=== PATIENT | male | born 1960 | race Caucasian/White ===

== ENCOUNTER 2020-03-13 07:28 | Outpatient (REF) | payer BC, SELFPAY ==
[2020-03-13 11:53] LABS: Anion Gap 11 (12-20); Blood Urea Nitrogen 22 mg/dL (9-16); Calcium 8.5 mg/dL (8.4-10.2); Carbon Dioxide 26 mmol/L (22-29); Chloride 105 mmol/L (96-108); Estimated Glomerular Filt Rate > 60; Glucose Random 84 mg/dL (60-115); Potassium 4.3 mmol/l (3.3-5.1); Sodium 138 mmol/L (135-145)
== END 2020-03-13 07:29 | disposition home or self-care (01) ==
LOC: HO.HMGCLDS 07:28
PROVIDERS: PCP Internal Medicine; Visit Provider Internal Medicine
DX: E27.3 Drug-induced adrenocortical insufficiency (principal)
CPT/HCPCS: 36415; 80048

== ENCOUNTER → 2020-03-19 12:31 | Outpatient (BNVA) | payer BC, SELFPAY | PROVIDERS: PCP Internal Medicine; Referring Provider Internal Medicine; Visit Provider Internal Medicine | DX: Z76.89 Persons encountering health services in other specified circumstances (principal) ==

== ENCOUNTER 2020-04-16 12:00 | Outpatient (REF) | payer BC, SELFPAY ==
--- NOTE | 2020-04-16 12:05 | XR_ITS ---
EXAMINATION: XR KNEE, RIGHT CLINICAL INFORMATION: Pain and swelling COMPARISON: Previous x-ray February 2018 TECHNIQUE: Four views of the right knee. FINDINGS: Bone alignment is normal. No fracture or dislocation is seen. There is increasing arthritis at the medial femoral tibial joint with the increasing joint space narrowing and small osteophyte. There is mild arthritis patellofemoral joint with small osteophytes. There is a moderate joint effusion. There is new high attenuation seen posterior to the tibial plateau and fibular head on the lateral view questionable for intra-articular loose body or complex joint effusion. There is evidence of atherosclerotic disease. XR/XR knee RT 3V IMPRESSION: Degenerative changes at the medial femoral tibial and patellofemoral joints. Moderate joint effusion. High attenuation seen posterior to the tibial plateau on the lateral view questionable for intra-articular loose body or complex effusion. Mild atherosclerotic disease.
== END 2020-04-16 12:01 | disposition home or self-care (01) ==
LOC: HO.XRAY 12:00
PROVIDERS: Visit Provider Internal Medicine
DX: M25.561 Pain in right knee (principal); M25.461 Effusion, right knee
CPT/HCPCS: 73562

== ENCOUNTER 2020-04-28 07:22 | Outpatient (REF) | payer BC, SELFPAY ==
[2020-04-28 11:49] LABS: Anion Gap 13 (12-20); Blood Urea Nitrogen 16 mg/dL (9-16); Calcium 8.9 mg/dL (8.4-10.2); Carbon Dioxide 27 mmol/L (22-29); Chloride 104 mmol/L (96-108); Estimated Glomerular Filt Rate > 60; Glucose Random 90 mg/dL (60-115); Potassium 4.4 mmol/l (3.3-5.1); Sodium 140 mmol/L (135-145)
[2020-04-28 12:06] LABS: C Reactive Protein 0.78 mg/dL (< or = 0.50)
[2020-04-28 14:32] LABS: Erythrocyte Sedimentation Rate 26 MM/HR (0-15)
== END 2020-04-28 07:23 | disposition home or self-care (01) ==
LOC: HO.HMGCLDS 07:22
PROVIDERS: Internal Medicine; PCP Internal Medicine; Visit Provider Student in an Organized Health Care Education/Training Program
DX: E27.40 Unspecified adrenocortical insufficiency (principal); M31.6 Other giant cell arteritis; M35.3 Polymyalgia rheumatica; Z79.52 Long term (current) use of systemic steroids
CPT/HCPCS: 36415; 80048; 85652; 86140

== ENCOUNTER → 2020-05-02 07:38 | Outpatient (BNVA) | payer BC, SELFPAY | PROVIDERS: PCP Internal Medicine; Referring Provider Internal Medicine; Visit Provider Student in an Organized Health Care Education/Training Program | DX: Z76.89 Persons encountering health services in other specified circumstances (principal) ==

== ENCOUNTER 2020-05-05 18:34 | Outpatient (REF) | payer BC, SELFPAY ==
--- NOTE | 2020-05-05 18:36 | MR_ITS ---
EXAMINATION: MR KNEE WITHOUT CONTRAST, RIGHT CLINICAL INFORMATION: Sharp pain at the medial patella with symptoms x1 month. Radiographs dated 04/16/2020. COMPARISON: None TECHNIQUE: MRI of the knee without contrast was performed using routine sequences on a high-field scanner. FINDINGS: MENISCI: Medial Meniscus: The posterior horn and body are blunted at the free edge margins which could be due in part to a prior partial meniscectomy. There is a degenerative longitudinal undersurface tear at the junction of the posterior horn and body which is likely new since prior surgery. An undersurface meniscal flap fragment is displaced into the meniscotibial recess posteromedially, measuring 1.4 cm AP. A small radial tear is present at the posterior horn along the free edge. Lateral Meniscus: A radially oriented degenerative tear is present at the posterior horn near the root insertion, involving at least one-third of the overall tendon cross-section. A small longitudinal tear is present at the anterior root insertion, likely extending to the superior meniscal surface. Free edge fraying is present at the lateral meniscal body. LIGAMENTS: Cruciate: Intact Collateral: Intact EXTENSOR MECHANISM: Enthesopathic spurring is present at the quadriceps tendon insertion of the patella. Quadriceps and patellar tendons are normal. ARTICULAR CARTILAGE/BONE: Patellofemoral Compartment: Moderate to high-grade cartilage loss at the lateral patellar facet is most pronounced at the distal half. More [id number]-dg-[id number] chondral thinning is present at the median ridge and medial facet. Small to moderate-sized marginal osteophytes. A small chondral defect in the lateral third of the lateral trochlear facet measures 1.5 x 1.8 cm in area. Medial Compartment: Moderate to high-grade articular cartilage loss is present at the medial femoral condyle weightbearing surface with articular cortical irregularity and subchondral edema. Focal high-grade cartilage loss is also present at the anteromedial quarter of the medial tibial plateau with underlying subchondral marrow edema. Small to moderate-sized marginal osteophytes are noted. Lateral Compartment: Moderate to high-grade articular cartilage loss is present at the medial half of the lateral tibial plateau. There is more mild lateral chondral thinning. Additional mild partial-thickness chondral thinning is present at the lateral femoral condyle. Small to moderate-sized marginal osteophytes. JOINT FLUID AND BURSAE: Moderate-sized joint effusion. Multiple loose bodies are present throughout the joint. There is a 1.5 cm osseous loose body posteriorly within a synovial cyst arising just proximal to the popliteus tendon sheath posteriorly. Additional small foci of osteochondral debris are present within the tendon sheath itself. Posteromedially in the gastrocnemius recess, there are multiple small osseous and chondral loose bodies measuring up to 8 mm in diameter. In the anterior recess of the lateral compartment near the anterior insertion of the lateral meniscus, there is an ill-defined 1.7 x 0.7 x 1.7 cm region of ill-defined low signal intensity material which may correspond to chondral debris or synovitis. MR/MR knee RT wo con IMPRESSION: 1. Complex longitudinal undersurface tear at the posterior horn and body of the medial meniscus with partial extrusion of an undersurface flap. Query history of prior partial medial meniscectomy. 2. Degenerative undersurface partial tear of the posterior horn of the lateral meniscus. 3. Moderate medial and patellofemoral compartment osteoarthritis with areas of high-grade cartilage loss at the medial femoral condyle and lateral patellar facet. 4. Ikmx-cs-swtffdwu lateral compartment osteoarthritis. 5. Moderate-sized joint effusion with multiple loose bodies and clusters of osteochondral debris.
== END 2020-05-05 18:35 | disposition home or self-care (01) ==
LOC: HO.MRI 18:34
PROVIDERS: Visit Provider Orthopaedic Surgery
DX: S83.241A Other tear of medial meniscus, current injury, right knee, initial encounter (principal)
CPT/HCPCS: 73721

== ENCOUNTER → 2020-05-14 14:01 | Outpatient (BNVA) | payer BC, SELFPAY | PROVIDERS: Visit Provider Orthopaedic Surgery | DX: Z76.89 Persons encountering health services in other specified circumstances (principal) ==

== ENCOUNTER → 2020-05-28 12:11 | Outpatient (BNVA) | payer BC, SELFPAY | PROVIDERS: PCP Internal Medicine; Referring Provider Internal Medicine; Visit Provider Internal Medicine | DX: Z76.89 Persons encountering health services in other specified circumstances (principal) ==

== ENCOUNTER 2020-06-17 08:07 | Outpatient (REF) | payer BC, SELFPAY ==
[2020-06-17 11:41] LABS: C Reactive Protein 1.03 mg/dL (< or = 0.50)
[2020-06-17 12:31] LABS: Erythrocyte Sedimentation Rate 20 MM/HR (0-15)
[2020-06-17 13:49] LABS: Anion Gap 17 (12-20); Blood Urea Nitrogen 15 mg/dL (9-16); Calcium 8.9 mg/dL (8.4-10.2); Carbon Dioxide 26 mmol/L (22-29); Chloride 104 mmol/L (96-108); Estimated Glomerular Filt Rate > 60; Glucose Random 93 mg/dL (60-115); Potassium 4.6 mmol/l (3.3-5.1); Sodium 142 mmol/L (135-145)
== END 2020-06-17 08:08 | disposition home or self-care (01) ==
LOC: HO.HMGCLDS 08:07
PROVIDERS: Internal Medicine; PCP Internal Medicine; Visit Provider Student in an Organized Health Care Education/Training Program
DX: E27.40 Unspecified adrenocortical insufficiency (principal); M35.3 Polymyalgia rheumatica
CPT/HCPCS: 36415; 80048; 85652; 86140

== ENCOUNTER 2020-06-19 07:57 | Day surgery (SDC) | payer BC, SELFPAY ==
[2020-06-11 15:20] VITALS: BMI 31.5
--- NOTE | 2020-06-17 15:16 | P.CONAN_ITS ---
Documented by User: Margret Mac 06/17/20 15:17 HPI - Anesthesia Eval Consult details Narrative: 59yo M for Knee Arthroscopy *Chronic steroids* PMFSH Past Medical History Medical History Adrenocortical insufficiency Depression GERD (gastroesophageal reflux disease) HLD (hyperlipidemia) Migraine Osteopenia Polymyalgia rheumatica Temporal arteritis Vitamin D deficiency Family History Family History Father T2DM (type 2 diabetes mellitus) CVA (cerebral vascular accident) Surgical History Surgical History History of hand surgery Hx of bilateral cataract extraction Social History Social History Are you a primary director career services to a significant other at home: No Do you presently have visiting nurse or other home services: No Alcohol intake: current Smoking Status: Never smoker Second Hand Smoke Exposure: No Use of substances other than those prescribed or required for medical reasons: No Have you been hit, kicked, punched, or otherwise hurt by someone within the past year? 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 Meds Allergies Allergy/AdvReac Type Severity Reaction Status Date / Time No Known Allergies Allergy Verified 06/19/20 08:27 [No Known Allergies*] diesel exhaust Allergy Mild Migraine Uncoded 06/11/20 15:18 Home Medications Medication Instructions Recorded Confirmed Type omeprazole 20 mg capsule,delayed 20 mg PO DAILY 03/19/20 06/19/20 History release calcium carbonate-vitamin D3 600 1 tab PO DAILY tab 05/28/20 06/19/20 History mg(1,500 mg)-400 unit chewable tablet syringe with needle 3 mL 25 gauge #1 ea 05/28/20 06/19/20 History x 1 cyanocobalamin (vitamin B-12) 1,000 mcg IM Q4W 06/11/20 06/19/20 History ferrous sulfate 325 mg PO DAILY 06/11/20 06/19/20 History Exam Exam Date and Time: June 17, 2020 1516 Height,Weight and Vital Signs: Height 5 ft 10 in Weight 99.79 kg Pertinent Lab Results Pertinent Lab Results: Laboratory Tests 06/17/20 08:15 Sodium 142 Potassium 4.6 Chloride 104 Carbon Dioxide 26 BUN 15 Creatinine 0.85 Assessment and Plan Assessment Anesthesia Assessment: Chart Reviewed Documented by User: Mariely Lynne 06/19/20 09:31 PMFSH Past Medical History Medical History Adrenocortical insufficiency Depression GERD (gastroesophageal reflux disease) HLD (hyperlipidemia) Migraine Osteopenia Polymyalgia rheumatica Temporal arteritis Vitamin D deficiency Family History Family History Father T2DM (type 2 diabetes mellitus) CVA (cerebral vascular accident) Surgical History Surgical History History of hand surgery Hx of bilateral cataract extraction Social History Social History Are you a primary director career services to a significant other at home: No Do you presently have visiting nurse or other home services: No Alcohol intake: current Smoking Status: Never smoker Second Hand Smoke Exposure: No Use of substances other than those prescribed or required for medical reasons: No Have you been hit, kicked, punched, or otherwise hurt by someone within the past year? 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 Meds Allergies Allergy/AdvReac Type Severity Reaction Status Date / Time No Known Allergies Allergy Verified 06/19/20 08:27 [No Known Allergies*] diesel exhaust Allergy Mild Migraine Uncoded 06/11/20 15:18 Home Medications Medication Instructions Recorded Confirmed Type omeprazole 20 mg capsule,delayed 20 mg PO DAILY 03/19/20 06/19/20 History release calcium carbonate-vitamin D3 600 1 tab PO DAILY tab 05/28/20 06/19/20 History mg(1,500 mg)-400 unit chewable tablet syringe with needle 3 mL 25 gauge #1 ea 05/28/20 06/19/20 History x 1 cyanocobalamin (vitamin B-12) 1,000 mcg IM Q4W 06/11/20 06/19/20 History ferrous sulfate 325 mg PO DAILY 06/11/20 06/19/20 History Exam Airway Mallampati Class: II TM Dist: >3cm Neck ROM: Full Assessment and Plan Assessment Anesthesia Assessment: Anesthesia Plan Discussed and Chart Reviewed Final Anesthetic Review NPO: Yes ASA Class: II Final Preanesthetic Review: No Changes in Pt Med Stat, Meds/Allgs Chart Reviewed, Consent Obtained/Reviewed and Anes Risks/Benef Reviewed Patient Risk: Low Procedure Risk: Low Assessment/Block/Sedation in SS: Assess/Block/Sedation-SS Anesthetic Plan Anesthetic Plan: GA Disposition: Standard PACU
--- NOTE | 2020-06-18 14:57 | MHC.SHP ---
Pre-Procedural Eval Section A The patient is an INPATIENT: No Changes since office visit: No Cold of Flu in the past 2 weeks, No New Medical Problems, No Changes in Medication and No Patient answered all questions The History & Physical has been completed within 30 days and I have reviewed it.: Yes Section B Chief Complaint: tear of medial meniscus,right knee Allergies: Allergies Allergy/AdvReac Type Severity Reaction Status Date / Time No Known Allergies Allergy Verified 05/28/20 12:18 [No Known Allergies*] diesel exhaust Allergy Mild Migraine Uncoded 06/11/20 15:18 Plan I have reviewed the history and physical and performed a pertinent physical examination on my patient. No changes have occurred unless specified.
[2020-06-19] VITALS (7 sets, daily range): BP systolic 113–141; BP diastolic 66–81; PULSE 59–74; RESP 16–18; TEMP 36.4–36.8; O2SAT 92–99
[2020-06-19] MEDS: Lactated Ringers 1,000 ML 100 ML IVCONT (08:50)
--- NOTE | 2020-06-19 10:21 | PM.PRCOR ---
Brief Operative Note Date of procedure: 06/19/20 Pre-op diagnosis: medial meniscal tear right knee Post-op diagnosis: same (with OA right knee) Procedure: RIGHT KNEE Anesthesia: GLMA Surgeon: Cierra Souza Estimated blood loss (mL): 0 Condition: stable Disposition: PACU
--- NOTE | 2020-06-19 10:52 | OP_ITS ---
SURGEON: Cierra Souza MD PREOPERATIVE DIAGNOSIS: Medial meniscal tear of right knee. POSTOPERATIVE DIAGNOSIS: 1. Complex tear posterior horn of medial meniscus, right knee. 2. Osteoarthritis, right knee. PROCEDURE PERFORMED: 1. Partial medial meniscectomy, right knee. 2. Debridement, right knee. ESTIMATED BLOOD LOSS: COMPLICATIONS: ANESTHESIA: ASSISTANTS: SPECIMENS: CLINICAL NOTE: This gentleman has an ongoing problem with pain and discomfort involving his knee. He had failed nonoperative management. Investigations confirmed that he had evidence of osteoarthritis, but also a medial meniscal tear. Therefore after explaining the risks, benefits, and alternatives and answering all his questions, it was mutually agreed upon to carry out the following procedure. MOTION: Full range of motion. STABILITY: Cruciate and collateral ligaments intact. DESCRIPTION OF PROCEDURE: PREPARATION: GA, standard technique, tourniquet to 300 mmHg for 11 minutes. SURGICAL TIME-OUT: The patient was identified, procedure confirmed, site confirmed. Medical analogy and history reviewed. No preoperative antibiotics. No DVT prophylaxis. All other items were discussed and agreed upon. INCISION: Superolateral, inferolateral, inferomedial stab incisions. SYNOVIUM: Normal. SYNOVIAL FLUID: Clear. MEDIAL COMPARTMENT: There was a complex tearing of posterior horn of medial meniscus was resected using a combination of handheld cutters and power shaver to stable meniscus. The medial femoral condyle had large area over the weightbearing surface of grade 3 injury, which was debrided of loose articular cartilage. There was an area that was close to grade 4. On the tibial articular surface, the large area of grade 3 wear with peripherally grade 4 area as well. This was debrided loose articular cartilage as well. INTERCONDYLAR NOTCH: ACL visualized, palpated intact. PCL palpated intact. LATERAL COMPARTMENT: The lateral meniscus was intact. The femoral articular surface was intact except for small punctate grade 3 injury in the weightbearing surface. The tibial articular surface had a large area of grade 3 injury with loose articular cartilage, which was debrided. The popliteus tendon intact. ANTERIOR COMPARTMENT: Medial and lateral gutters clear. Suprapatellar pouch clear. The whole midzone of the patella had mainly grade 4 injury with a peripheral portion having grade 3. There was a large amount of synovial tissue. This was debrided as was the patella. The femoral sulcus had a small area of crease grade 2 to 3 injury but the remainder of it was grade 2 softening. CLOSURE: 30 mL of a combination of half and half 0.75% Marcaine with epinephrine and normal saline was injected in the knee. Steri-Strips and sterile dressing then applied. RECOMMENDATIONS: 1. Restore motion and strength. 2. Resume activity as tolerated. 3. Discharge today with prescription for Tylenol No. 3, 20 tablets. 4. Follow up in the office in 10 days' time. MD HOANG Cabrera/KEIRY / [id number]
[2020-06-19] MEDS: Acetaminophen 325 MG TABLET 650 MG PO (10:54)
== END 2020-06-19 11:33 | disposition home or self-care (01) ==
PROVIDERS: PCP Internal Medicine; Visit Provider Orthopaedic Surgery
PROC: (CPT 29870; principal; 2020-06-19 09:40)
DX: S83.231A Complex tear of medial meniscus, current injury, right knee, initial encounter (principal); M17.11 Unilateral primary osteoarthritis, right knee; X58.XXXA Exposure to other specified factors, initial encounter; Y93.9 Activity, unspecified; Y92.9 Unspecified place or not applicable; Y99.8 Other external cause status; M85.80 Other specified disorders of bone density and structure, unspecified site; M35.3 Polymyalgia rheumatica; M31.6 Other giant cell arteritis; E27.40 Unspecified adrenocortical insufficiency; E55.9 Vitamin D deficiency, unspecified; Z79.52 Long term (current) use of systemic steroids; Z79.899 Other long term (current) drug therapy
CPT/HCPCS: 29881; J0171; J1100; J1885; J2250; J2405; J3010

== ENCOUNTER → 2020-06-20 08:51 | Outpatient (BNVA) | payer BC, SELFPAY | PROVIDERS: PCP Internal Medicine; Visit Provider Student in an Organized Health Care Education/Training Program | DX: Z13.89 Encounter for screening for other disorder (principal) ==

== ENCOUNTER → 2020-07-02 09:54 | Outpatient (BNVA) | payer BC, SELFPAY | PROVIDERS: Visit Provider Physician Assistant ==

== ENCOUNTER 2020-07-17 13:24 | Outpatient (REF) | payer BC, SELFPAY | END 2020-07-17 13:25 | disposition home or self-care (01) | LOC: HO.HMGCLDS 13:24 | PROVIDERS: PCP Internal Medicine; Visit Provider Internal Medicine | DX: Z13.89 Encounter for screening for other disorder (principal) ==

== ENCOUNTER → 2020-07-23 14:48 | Outpatient (BNVA) | payer BC, SELFPAY | PROVIDERS: PCP Internal Medicine; Visit Provider Internal Medicine ==

== ENCOUNTER 2020-07-25 09:48 | Outpatient (REF) | payer BC, SELFPAY ==
[2020-07-25 11:44] LABS: C Reactive Protein 0.67 mg/dL (< or = 0.50)
[2020-07-25 12:25] LABS: Erythrocyte Sedimentation Rate 16 MM/HR (0-15)
== END 2020-07-25 09:49 | disposition home or self-care (01) ==
LOC: HO.HMGCLDS 09:48
PROVIDERS: PCP Internal Medicine; Visit Provider Student in an Organized Health Care Education/Training Program
DX: M35.3 Polymyalgia rheumatica (principal)
CPT/HCPCS: 36415; 85652; 86140

== ENCOUNTER → 2020-07-30 15:57 | Outpatient (BNVA) | payer BC, SELFPAY | PROVIDERS: PCP Internal Medicine; Visit Provider Student in an Organized Health Care Education/Training Program ==

== ENCOUNTER → 2020-10-07 07:58 | Outpatient (BNVA) | payer BC, SELFPAY | PROVIDERS: PCP Internal Medicine; Visit Provider Orthopaedic Surgery ==

== ENCOUNTER 2020-10-31 08:38 | Outpatient (REF) | payer BC, SELFPAY ==
[2020-10-31 09:03] LABS: MANUAL DIFF FLAG NO
[2020-10-31 09:06] LABS: Basophils Absolute Auto 0.1 X10*3/uL (0.0-0.2); Eosinophils Absolute Auto 0.3 X10*3/uL (0.0-0.4); Eosinophils Percent Auto 4.3 % (0-4); Hematocrit 42.9 % (42-52); Hemoglobin 14.3 g/dl (14.0-18.0); Imm Gran Abs Auto 0.01 X10*3/uL (0.00-0.03); Imm Gran Pct Auto 0.2 % (0.0-0.4); Lymphocytes Absolute Auto 1.3 X10*3/uL (1.2-4.9); Mean Corpuscular HGB Conc 33.3 g/dl (31.0-36.0); Mean Corpuscular Hemoglobin 32.2 pg (27.0-33.0); Mean Corpuscular Volume 96.6 fL (80-98); Mean Platelet Volume 11.6 fL (9.4-12.4); Monocytes Absolute Auto 0.6 X10*3/uL (0.1-1.2); Monocytes Percent Auto 10.6 % (2-11); Neutrophils Absolute Auto 3.7 X10*3/uL (2.0-8.3); Neutrophils Percent Auto 61.9 % (45-73); Platelet Count 180 X10*3/uL (160-400); Red Blood Count 4.44 X10*6/uL (4.60-5.80); Red Cell Distribution Width 13.2 % (11.0-16.0)
[2020-10-31 09:43] LABS: Alanine Aminotransferase 26 U/L (0-40); Albumin Level 4.3 g/dL (3.5-5.0); Alkaline Phosphatase 86 U/L (39-117); Anion Gap 10 (12-20); Aspartate Amino Transferase 18 U/L (5-37); Bilirubin Total 0.7 mg/dL (0.0-1.0); Blood Urea Nitrogen 18 mg/dL (9-16); C Reactive Protein 1.48 mg/dL (< or = 0.50); Calcium 9.4 mg/dL (8.4-10.2); Carbon Dioxide 30 mmol/L (22-29); Chloride 106 mmol/L (96-108); Estimated Glomerular Filt Rate > 60; Glucose Random 102 mg/dL (60-115); Potassium 4.6 mmol/L (3.3-5.1); Sodium 141 mmol/L (135-145); Total Protein 6.7 g/dL (6.5-8.0)
[2020-10-31 09:54] LABS: Erythrocyte Sedimentation Rate 25 MM/HR (0-15)
[2020-11-03 22:06] LABS: Adrenocorticotropic Hormone <5 pg/mL (6-50)
== END 2020-10-31 08:39 | disposition home or self-care (01) ==
LOC: HO.LAB 08:38
PROVIDERS: Absent Provider Student in an Organized Health Care Education/Training Program; PCP Internal Medicine; Visit Provider Internal Medicine
DX: M35.3 Polymyalgia rheumatica (principal); E27.40 Unspecified adrenocortical insufficiency
CPT/HCPCS: 36415; 80053; 82024; 82533; 85025; 85652; 86140

== ENCOUNTER → 2020-11-04 10:02 | Outpatient (BNVA) | payer BC, SELFPAY | PROVIDERS: PCP Internal Medicine; Visit Provider Student in an Organized Health Care Education/Training Program ==

== ENCOUNTER → 2020-11-12 07:22 | Outpatient (BNVA) | payer BC, SELFPAY | PROVIDERS: PCP Internal Medicine; Visit Provider Internal Medicine ==

== ENCOUNTER 2020-11-17 07:13 | Outpatient (REF) | payer BC, SELFPAY ==
[2020-11-17 08:55] LABS: Vitamin D 25-OH Total 36.1 ng/mL (>30)
[2020-11-17 10:06] LABS: Erythrocyte Sedimentation Rate 21 MM/HR (0-15)
[2020-11-21 18:21] LABS: Adrenocorticotropic Hormone 12 pg/mL (6-50)
== END 2020-11-17 07:14 | disposition home or self-care (01) ==
LOC: HO.LAB 07:13
PROVIDERS: Student in an Organized Health Care Education/Training Program; PCP Internal Medicine; Visit Provider Internal Medicine
DX: M35.3 Polymyalgia rheumatica (principal); E27.40 Unspecified adrenocortical insufficiency; E55.9 Vitamin D deficiency, unspecified
CPT/HCPCS: 36415; 82024; 82306; 82533; 85652; 86140

== ENCOUNTER 2021-08-11 09:11 | Outpatient (REF) | payer BC, SELFPAY ==
[2021-08-11 11:50] LABS: C Reactive Protein 0.74 mg/dL (< or = 0.50)
[2021-08-11 11:52] LABS: Erythrocyte Sedimentation Rate 14 MM/HR (0-15)
== END 2021-08-11 09:12 | disposition home or self-care (01) ==
LOC: HO.LAB 09:11
PROVIDERS: PCP Internal Medicine; Visit Provider Internal Medicine Rheumatology
DX: M35.3 Polymyalgia rheumatica (principal); Z86.79 Personal history of other diseases of the circulatory system
CPT/HCPCS: 36415; 85652; 86140

== ENCOUNTER 2021-09-30 08:01 | Outpatient (REF) | payer BC, SELFPAY ==
[2021-09-30 09:10] LABS: Alanine Aminotransferase 19 U/L (0-40); Albumin Level 3.8 g/dL (3.5-5.0); Alkaline Phosphatase 75 U/L (39-117); Anion Gap 9 (12-20); Aspartate Amino Transferase 14 U/L (5-37); Bilirubin Total 0.6 mg/dL (0.0-1.0); Blood Urea Nitrogen 11 mg/dL (9-16); Calcium 8.9 mg/dL (8.4-10.2); Carbon Dioxide 29 mmol/L (22-29); Chloride 105 mmol/L (96-108); Estimated Glomerular Filt Rate > 60; Glucose Random 98 mg/dL (60-115); Potassium 4.9 mmol/L (3.3-5.1); Sodium 138 mmol/L (135-145); Total Protein 6.3 g/dL (6.5-8.0)
[2021-09-30 09:27] LABS: Vitamin D 25-OH Total 35.9 ng/mL (>30)
[2021-09-30 09:54] LABS: Cortisol Random 8.3 ug/dL
[2021-10-01 20:37] LABS: Adrenocorticotropic Hormone 10 pg/mL (6-50)
== END 2021-09-30 08:02 | disposition home or self-care (01) ==
LOC: HO.HMGCLDS 08:01
PROVIDERS: PCP Internal Medicine; Visit Provider Internal Medicine
DX: E27.40 Unspecified adrenocortical insufficiency (principal); E55.9 Vitamin D deficiency, unspecified
CPT/HCPCS: 36415; 80053; 82024; 82306; 82533

== ENCOUNTER → 2021-10-05 08:08 | Outpatient (BNVA) | payer BC, SELFPAY | PROVIDERS: PCP Internal Medicine; Visit Provider Internal Medicine | DX: Z13.89 Encounter for screening for other disorder (principal) ==

== ENCOUNTER 2021-10-06 07:05 | Outpatient (REF) | payer BC, SELFPAY ==
[2021-10-06 07:50] LABS: Anion Gap 9 (12-20); Blood Urea Nitrogen 11 mg/dL (9-16); C Reactive Protein 0.73 mg/dL (< or = 0.50); Calcium 9.1 mg/dL (8.4-10.2); Carbon Dioxide 28 mmol/L (22-29); Chloride 107 mmol/L (96-108); Estimated Glomerular Filt Rate > 60; Glucose Random 100 mg/dL (60-115); Potassium 4.7 mmol/L (3.3-5.1); Sodium 139 mmol/L (135-145)
[2021-10-06 08:22] LABS: Erythrocyte Sedimentation Rate 16 MM/HR (0-15)
[2021-10-06 13:22] LABS: Cortisol Random 15.1 ug/dL
[2021-10-07 15:11] LABS: Adrenocorticotropic Hormone 14 pg/mL (6-50)
[2021-10-08 07:11] LABS: DHEA Sulfate 33 mcg/dL (32-279)
== END 2021-10-06 07:06 | disposition home or self-care (01) ==
LOC: HO.LAB 07:05
PROVIDERS: Absent Provider Internal Medicine Rheumatology; PCP Internal Medicine; Visit Provider Internal Medicine
DX: E27.40 Unspecified adrenocortical insufficiency (principal); M35.3 Polymyalgia rheumatica
CPT/HCPCS: 36415; 80048; 82024; 82533; 82627; 85652; 86140

== ENCOUNTER → 2021-10-15 12:11 | Outpatient (RCR) | payer BC, SELFPAY ==
--- NOTE | 2020-04-22 19:44 | MHC.PT.EP ---
[facility] [place] Office [place] Office [place] Office [address] [phone] F: [phone] F: [phone] F: [phone] F: [phone] Physical Therapy Plan of Care Date of Evaluation: 04/22/20 Date of Surgery: Diagnosis: R knee intermittent pain. 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 Pt is deemed an appropriate candidate to receive skilled PT services to address his physical impairments in order to improve his functional ability. Frequency and Duration: The patient will be seen Short Term Goals: in 1 week: initiate HEP with evidence of compliance. Skilled Nursing Goals: In 5 weeks: Pt will report able to negotiate stairs in reciprocal fashion without compensation. In 5 weeks: improve R knee extension MMT to > 4/5; initial 4-/5. In 5 weeks: Pt will report 75% reduction in occurrence of pain. Treatment Plan: Modalities to reduce pain, spasms and effusion. Manual therapy to restore motion and function. Therapeutic exercise to improve strength and flexibility. Neuromuscular re-education for posture and balance. Therapeutic activities to return to functional activities of daily living. Please sign and return to therapist. Thank you for your referral.
--- NOTE | 2020-05-19 11:11 | MHC.PT.DC ---
[facility] [place] Office [place] Office [place] Office [address] [phone] F: [phone] F: [phone] F: [phone] F: [phone] Physical Therapy Discharge Report Diagnosis: R knee intermittent pain. Date of Surgery: Date of Evaluation: 04/22/20 Date of Discharge: Treatments to Date: 100 Cancellations to Date: 1 No Shows to Date: 0 Discharge Status: Patient Elected to Stop Physician Discontinued Tx Discharge Summary: Pt attended his initial evaluation before jeanie COVID and had to hold therapy. Therapy was informed he with undergo R knee surgery and is DC'd of therapy at this time. Electronically signed by: Art Sandy PT. Please sign and return to therapist. Thank you for your referral.
== END | disposition home or self-care (01) ==
LOC: HO.PTCHIC 04-22 13:51
PROVIDERS: PCP Internal Medicine; Visit Provider Internal Medicine
DX: M25.561 Pain in right knee (principal); M25.461 Effusion, right knee
CPT/HCPCS: 97110; 97161

== ENCOUNTER 2022-09-11 10:44 | Outpatient (REF) | payer BC, SELFPAY ==
--- NOTE | ~2022-09-11 | XR_ITS ---
EXAMINATION: XR KNEE, RIGHT CLINICAL INFORMATION: Right knee pain, history of surgery COMPARISON: Right knee x-ray on 04/16/2020 TECHNIQUE: Four views of the right knee. FINDINGS: No acute fracture or dislocation. No joint effusion. There is moderate medial compartment joint space narrowing. There is atherosclerotic calcification. XR/XR knee RT 4V IMPRESSION: Moderate degenerative disease of the right knee.
== END 2022-09-11 10:45 | disposition home or self-care (01) ==
LOC: HO.HMGCX 10:44
PROVIDERS: PCP Internal Medicine; Visit Provider Internal Medicine
DX: M25.561 Pain in right knee (principal)
CPT/HCPCS: 73564

== ENCOUNTER → 2023-05-19 12:29 | Outpatient (BNVA) | payer BC, SELFPAY | PROVIDERS: Visit Provider Physician Assistant ==

== ENCOUNTER 2023-10-13 06:51 | Outpatient (REF) | payer BC, SELFPAY ==
[2023-10-13 10:17] LABS: MANUAL DIFF FLAG NO
[2023-10-13 10:36] LABS: Basophils Absolute Auto 0.1 X10*3/uL (0.0-0.2); Basophils Percent Auto 0.9 % (0-2); Eosinophils Absolute Auto 0.2 X10*3/uL (0.0-0.4); Eosinophils Percent Auto 3.4 % (0-4); Hematocrit 41.7 % (42.0-52.0); Imm Gran Abs Auto 0.01 X10*3/uL (0.00-0.03); Imm Gran Pct Auto 0.2 % (0.0-0.4); Lymphocytes Absolute Auto 1.4 X10*3/uL (1.2-4.9); Lymphocytes Percent Auto 25.2 % (20-40); Mean Corpuscular HGB Conc 33.6 g/dl (31.0-36.0); Mean Corpuscular Hemoglobin 32.3 pg (27.0-33.0); Mean Corpuscular Volume 96.3 fL (80.0-98.0); Mean Platelet Volume 11.9 fL (9.4-12.4); Monocytes Absolute Auto 0.5 X10*3/uL (0.1-1.2); Monocytes Percent Auto 9.4 % (2-11); Neutrophils Absolute Auto 3.4 x10*3/uL (2.0-8.3); Neutrophils Percent Auto 60.9 % (45-73); Platelet Count 194 X10*3/uL (160-400); Red Blood Count 4.33 X10*6/uL (4.60-5.80); Red Cell Distribution Width 13.2 % (11.0-16.0); White Blood Count 5.6 X10*3/uL (4.8-10.8)
[2023-10-13 11:08] LABS: Erythrocyte Sedimentation Rate 14 MM/HR (0-15)
[2023-10-13 11:32] LABS: Alanine Aminotransferase 25 U/L (0-40); Albumin Level 3.8 g/dL (3.5-5.0); Alkaline Phosphatase 73 U/L (39-117); Anion Gap 11 (12-20); Aspartate Amino Transferase 19 U/L (5-37); Bilirubin Total 0.3 mg/dL (0.0-1.0); Blood Urea Nitrogen 16 mg/dL (9-16); C Reactive Protein 0.38 mg/dL (< or = 0.50); Carbon Dioxide 24 mmol/L (22-29); Chloride 109 mmol/L (96-108); Cholesterol 116 mg/dL (<200); Estimated Glomerular Filt Rate > 60; Ferritin 103 ng/mL (20-250); Glucose Fasting 108 mg/dL (60-99); HDL Cholesterol 32 mg/dL (>40); Iron 45 mcg/dL (45-160); LDL Cholesterol Calculated 59 mg/dL (<100); Percent Iron Saturation 17 % (15-50); Potassium 3.8 mmol/L (3.3-5.1); Sodium 140 mmol/L (135-145); Total Iron Binding Capacity 261 mcg/dL (228-428); Total Protein 6.6 g/dL (6.5-8.0); Triglycerides 128 mg/dL (<150); Unsaturated Iron Binding 216 ug/dL
[2023-10-13 11:43] LABS: Folate 7.6 ng/mL (> or = 4.0); Prostate Specific Antigen 0.92 ng/mL (<0.05-4.0); Vitamin B12 245 pg/mL (200-900)
== END 2023-10-13 06:52 | disposition home or self-care (01) ==
LOC: HO.HMGCLDS 06:51
PROVIDERS: PCP Internal Medicine; Visit Provider Internal Medicine
DX: Z00.00 Encounter for general adult medical examination without abnormal findings (principal); D64.9 Anemia, unspecified; E78.5 Hyperlipidemia, unspecified; Z12.5 Encounter for screening for malignant neoplasm of prostate
CPT/HCPCS: 36415; 80053; 80061; 82607; 82728; 82746; 83540; 84153; 85025; 85652; 86140

== ENCOUNTER 2023-12-02 07:06 | Outpatient (REF) | payer BC, SELFPAY ==
--- NOTE | ~2023-12-02 | XR_ITS ---
EXAMINATION: XR KNEE, LEFT CLINICAL INFORMATION: Pain in left knee. COMPARISON: 03/01/2018. TECHNIQUE: AP standing view of bilateral knees as well as lateral and sunrise views of the left knee. FINDINGS: Left knee: Azeg-ck-teviochf narrowing of the medial compartment. Tiny medial marginal and posterior patellar osteophytes. Moderate joint effusion. Vascular calcifications. AP standing view of the right knee demonstrates moderate narrowing of the medial compartment with marginal osteophytes. XR/XR knee LT 3V IMPRESSION: Sksl-ec-dejkzafj degenerative changes in the left knee.
== END 2023-12-02 07:07 | disposition home or self-care (01) ==
LOC: HO.HOSX 07:06
PROVIDERS: Visit Provider Physician Assistant
DX: M25.562 Pain in left knee (principal)
CPT/HCPCS: 73562

== ENCOUNTER 2023-12-02 07:52 | Outpatient (AMB) | payer BC, SELFPAY ==
--- NOTE | 2023-12-02 08:04 | MHC.OFFVIS ---
Vital Signs 12/02/23 08:05 Height 5 ft 10 in Weight 200 lb BMI 28.7 Intake Visit Reasons: OV - new problem left knee pain Intake Note: Nicanor is a 63 year old male who presents today for a new visit with complaints of left knee pain. Patient reports he extreme pain in the lateral aspect of his left knee. He described last night his knee felt cold and wet inside. He has numbness and tingling in the left knee that he says comes and goes. He expresses his knee randomly gives out when he ambulates. 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 He wears a sleeve on his knee for compress which he states gives him more stability. Denies recent injury. Allergies diesel exhaust Allergy (Mild, Uncoded 12/02/23 08:12) Migraine Medication List - Last Reconciled 12/02/23 by Nancy Martin PA-C No Known Home Meds HPI HPI OV - new problem left knee pain: Details: 63-year-old male who presents to the office today for an evaluation of left knee pain. He states he has extreme pain at the lateral aspect of his left knee as well as intermittent numbness and tingling. He reports his knee felt ?cold and wet inside.? His knee randomly gives out with ambulation. He also experiences difficulty with declines, stairs, or on any uneven ground. He wears a knee sleeve for compression which gives him more stability. He has not had any recent injury. He works as a services delivery driver and the pain has impacted his work. [facility] Medical History History of giant cell arteritis Polymyalgia rheumatica Temporal arteritis GERD (gastroesophageal reflux disease) HLD (hyperlipidemia) Depression Migraine Vitamin D deficiency Osteopenia Adrenocortical insufficiency Surgical History H/O knee surgery Hx of bilateral cataract extraction History of hand surgery Family History Father T2DM (type 2 diabetes mellitus) CVA (cerebral vascular accident) Social History Are you a primary home care specialist to a significant other at home: No Do you presently have visiting nurse or other home services: No Alcohol intake: current Second Hand Smoke Exposure: No Current occupational status: employed 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 Tenderness along the medial joint line and medial sided patellar pain. Full ROM with crepitus. Negative Curt?s. No ligamentous laxity. NVI. ? Results Reviewed Results Reviewed: Xrays were obtained in the office today and personally reviewed by me of the left knee show mild medial compartment oa with PF oa Assessment & Plan Assessment & Plan (1) Osteoarthritis of left knee: Code(s): M17.12 - Unilateral primary osteoarthritis, left knee Category: Medical Qualifiers: Osteoarthritis type: primary Qualified Code(s): M17.12 - Unilateral primary osteoarthritis, left knee Plan We discussed options which include PT, NSAIDs and injections. The patient will defer on formal physical therapy therefore a handout of home exercises was given. He was also fit for a Janumet knee brace in the office today. If symptoms persist, she will contact me for an injection, otherwise, PRN. Orders: Orders XR knee LT 3V Today M25.562 - Pain in left knee Patient Instructions: Scribed for Nancy Martin PA-C, by [facility] director, on 12/02/2023 at 8:00 AM EST.? I, Nancy Martin PA-C, have personally reviewed and agree with the information entered by the scribe. Coding Level of Care Code Est Pt Level 3 (39988) Diagnoses Primary osteoarthritis of left knee M17.12 Osteoarthritis type: primary
[2023-12-02 08:05] VITALS: BMI 28.7
== END 2023-12-02 08:42 | disposition home or self-care (01) ==
PROVIDERS: PCP Internal Medicine; Visit Provider Physician Assistant
DX: M17.12 Unilateral primary osteoarthritis, left knee (principal)
CPT/HCPCS: 99213

== ENCOUNTER 2024-07-05 09:33 | Outpatient (REF) | payer BC, SELFPAY ==
[2024-07-05 13:19] LABS: MANUAL DIFF FLAG NO
[2024-07-05 13:42] LABS: Basophils Absolute Auto 0.1 X10*3/uL (0.0-0.2); Basophils Percent Auto 0.9 % (0-2); Eosinophils Absolute Auto 0.2 X10*3/uL (0.0-0.4); Eosinophils Percent Auto 4.2 % (0-4); Hematocrit 43.9 % (42.0-52.0); Hemoglobin 14.7 g/dl (14.0-18.0); Imm Gran Abs Auto 0.01 X10*3/uL (0.00-0.03); Imm Gran Pct Auto 0.2 % (0.0-0.4); Lymphocytes Absolute Auto 1.3 X10*3/uL (1.2-4.9); Lymphocytes Percent Auto 23.2 % (20-40); Mean Corpuscular HGB Conc 33.5 g/dl (31.0-36.0); Mean Corpuscular Hemoglobin 32.2 pg (27.0-33.0); Mean Corpuscular Volume 96.3 fL (80.0-98.0); Mean Platelet Volume 11.9 fL (9.4-12.4); Monocytes Absolute Auto 0.6 X10*3/uL (0.1-1.2); Monocytes Percent Auto 10.9 % (2-11); Neutrophils Absolute Auto 3.3 x10*3/uL (2.0-8.3); Neutrophils Percent Auto 60.6 % (45-73); Platelet Count 197 X10*3/uL (160-400); Red Blood Count 4.56 X10*6/uL (4.60-5.80); Red Cell Distribution Width 13.3 % (11.0-16.0); White Blood Count 5.5 X10*3/uL (4.8-10.8)
[2024-07-05 14:11] LABS: C Reactive Protein 0.52 mg/dL (< or = 0.50)
[2024-07-05 14:22] LABS: Vitamin B12 207 pg/mL (200-900)
[2024-07-05 14:23] LABS: Erythrocyte Sedimentation Rate 18 MM/HR (0-15)
== END 2024-07-05 09:34 | disposition home or self-care (01) ==
LOC: HO.HMGCLDS 09:33
PROVIDERS: PCP Internal Medicine; Visit Provider Internal Medicine
DX: R53.83 Other fatigue (principal)
CPT/HCPCS: 36415; 82607; 85025; 85652; 86140

== ENCOUNTER 2024-07-16 14:59 | Emergency (ER) | payer OTHER, BC, SELFPAY ==
--- NOTE | ~2024-07-16 | CT_ITS ---
CLINICAL HISTORY: fall head strike CT cervical spine without contrast Comparison: CR - CERV SPINE 4 TO 5 VIEWS [id number] - 02/09/17 19:55 EDT Findings: Normal vertebral body alignment. Moderate degenerative disc disease at C5-C6. Mild degenerative disc disease at C4-C5. No central canal stenosis. No acute fractures or dislocations. Visualized intracranial contents are unremarkable. Soft tissues of the neck are normal. No consolidation or effusion at the lung apices. IMPRESSION: No acute findings. This document has been electronically signed by: Samantha Sewell MD on 07/16/2024 17:08:42
--- NOTE | ~2024-07-16 | CT_ITS ---
CLINICAL HISTORY: fall head strike CT head without contrast Comparison: None Findings: No intra-axial mass, midline shift, hydrocephalus, or acute hemorrhage. No significant atrophy-like change or white matter disease. The visualized paranasal sinuses and mastoid air cells are normal. The orbits are unremarkable. There is no acute fracture. IMPRESSION: 1. No acute intracranial findings. This document has been electronically signed by: Samantha Sewell MD on 07/16/2024 17:06:11
--- NOTE | ~2024-07-16 | XR_ITS ---
EXAMINATION: XR LUMBOSACRAL SPINE CLINICAL INFORMATION: low back pain s/p fall COMPARISON: 08/02/2007. TECHNIQUE: Three views of the lumbosacral spine. FINDINGS: There is mild leftward tilt centered at L5, likely positional. There is a normal lordosis. There is no fracture, compression deformity, or suspicious bone lesion. No subluxations. Severe disc degeneration L5-S1 with disc vacuum phenomenon. Mild disc space narrowing at L3-4 and L4-5. Facet degenerative changes L4-S1, most notable at L5-S1. Soft tissues demonstrate early vascular calcification. XR/XR lumbar spine 2-3V IMPRESSION: 1. No acute findings. 2. Degenerative spondylosis most significant L5-S1. Electronically signed by: Stef Rodriguez MD 07/16/2024 04:30 PM [facility]
[2024-07-16 15:44] VITALS: BP 142/78; PULSE 61; RESP 18; TEMP 36.4; O2SAT 99; BMI 30.7
--- NOTE | 2024-07-16 15:45 | ED.HEATRA ---
HPI - Head Injury General Chief complaint: Fall Stated complaint: Head inj work related Time Seen by Provider: 07/16/24 19:27 Related Data Previous Rx's ?Medication ?Instructions ?Recorded cyclobenzaprine 5 mg tablet 5 mg PO TID PRN muscle spasm 7 07/16/24 days #21 tabs Allergies Allergy/AdvReac Type Severity Reaction Status Date / Time diesel exhaust Allergy Mild Migraine Uncoded 07/16/24 15:48 [facility] Past Medical History Medical History History of giant cell arteritis Polymyalgia rheumatica Temporal arteritis GERD (gastroesophageal reflux disease) HLD (hyperlipidemia) Depression Migraine Vitamin D deficiency Osteopenia Adrenocortical insufficiency Surgical History H/O knee surgery Hx of bilateral cataract extraction History of hand surgery Family History Family History Father T2DM (type 2 diabetes mellitus) CVA (cerebral vascular accident) Social History Social History Are you a primary urgent care physician assistant to a significant other at home: No Do you presently have visiting nurse or other home services: No Alcohol intake: current Second Hand Smoke Exposure: No Advance Directives: No Advance Directives Information Provided: No Do you have a plan to hurt others: No Plan Current occupational status: employed 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 Full HPI, ROS and PE to be performed by primary ED provider. 63-year-old male with a past medical history of GERD HLD, migraines, depression presenting to the ED c/o head injury / headache and low back pain s/p mechanical trip and fall on ice. Unknown LOC. Denies AC use PE: No midline spinous tenderness throughout. No focal neuro deficits. Ambulating with steady gait Plan: Head/C-spine CT, x-ray Discharge Plan Discharge Clinical Impression: Fall from slipping, Headache, Lumbar back pain Patient Disposition: Home, Self-Care Instructions: Acute Headache (DC), Acute Low Back Pain (ED) Additional Instructions: Follow up with your primary care provider. Return to the emergency department immediately if your symptoms worsen or if you develop any dizziness, shortness of breath, difficulty breathing, chest pain, blurry vision, loss of vision, nausea, vomiting, abdominal pain, fever, chills, back pain, or any other complaints. Prescriptions: New cyclobenzaprine 5 mg tablet 5 mg PO TID PRN (Reason: muscle spasm) 7 Days Qty: 21 0RF Referrals: [facility] [Provider Group] (Call to establish and follow up with [facility] given this was a work place injury.) Timur Mclain MD [Primary Care Provider] - Stand Alone Forms: Work/School Release Interventions: ED Discharge Assessment Last Done: 07/16/24 19:36 Discharge Date/Time: 07/16/24 20:09 Print Language: Upper Sorbian
[2024-07-16 19:27] VITALS: BP 134/73; PULSE 57; RESP 18; TEMP 36.7; O2SAT 98
[2024-07-16 19:36] VITALS: BP 134/73; PULSE 57; RESP 18; TEMP 36.7; O2SAT 98
== END 2024-07-16 20:09 | disposition home or self-care (01) ==
LOC: HO.ED 19:38
PROVIDERS: Emergency Provider Emergency Medicine Emergency Medical Services; PCP Internal Medicine
DX: S39.92XA Unspecified injury of lower back, initial encounter (principal); R51.9 Headache, unspecified; M54.2 Cervicalgia; W00.0XXA Fall on same level due to ice and snow, initial encounter; Y93.01 Activity, walking, marching and hiking; Y92.89 Other specified places as the place of occurrence of the external cause; Y99.0 Civilian activity done for income or pay
CPT/HCPCS: 70450; 72100; 72125; 99282; 99284

== ENCOUNTER → 2024-07-16 15:46 | Outpatient (BNV) | payer OTHER, BC, SELFPAY | PROVIDERS: PCP Internal Medicine; Visit Provider Radiology Diagnostic Radiology | DX: S09.90XA Unspecified injury of head, initial encounter (principal); R51.9 Headache, unspecified; M54.50 Low back pain, unspecified; W00.0XXA Fall on same level due to ice and snow, initial encounter; Z04.2 Encounter for examination and observation following work accident | CPT/HCPCS: 70450; 72100; 72125 ==

== ENCOUNTER 2024-10-23 06:04 | Outpatient (REF) | payer OTHER, BC, SELFPAY ==
[2024-10-23 10:14] LABS: MANUAL DIFF FLAG NO
[2024-10-23 10:22] LABS: Basophils Absolute Auto 0.1 X10*3/uL (0.0-0.2); Basophils Percent Auto 1.4 % (0-2); Eosinophils Absolute Auto 0.3 X10*3/uL (0.0-0.4); Eosinophils Percent Auto 5.7 % (0-4); Hematocrit 42.3 % (42.0-52.0); Hemoglobin 14.1 g/dl (14.0-18.0); Imm Gran Abs Auto 0.02 X10*3/uL (0.00-0.03); Imm Gran Pct Auto 0.4 % (0.0-0.4); Lymphocytes Absolute Auto 1.4 X10*3/uL (1.2-4.9); Lymphocytes Percent Auto 27.4 % (20-40); Mean Corpuscular HGB Conc 33.3 g/dl (31.0-36.0); Mean Corpuscular Hemoglobin 32.3 pg (27.0-33.0); Mean Corpuscular Volume 96.8 fL (80.0-98.0); Monocytes Absolute Auto 0.5 X10*3/uL (0.1-1.2); Neutrophils Absolute Auto 2.7 x10*3/uL (2.0-8.3); Neutrophils Percent Auto 54.1 % (45-73); Platelet Count 182 X10*3/uL (160-400); Red Blood Count 4.37 X10*6/uL (4.60-5.80); Red Cell Distribution Width 13.5 % (11.0-16.0); White Blood Count 4.9 X10*3/uL (4.8-10.8)
[2024-10-23 11:09] LABS: Prostate Specific Antigen 1.34 ng/mL (<0.05-4.0)
[2024-10-23 11:20] LABS: Anion Gap 13 (12-20); Carbon Dioxide 27 mmol/L (22-29); Chloride 107 mmol/L (96-108); Potassium 4.5 mmol/L (3.3-5.1); Sodium 142 mmol/L (135-145)
[2024-10-23 11:21] LABS: Alanine Aminotransferase 26 U/L (0-40); Aspartate Amino Transferase 21 U/L (5-37); Bilirubin Total 0.8 mg/dL (0.0-1.0); Blood Urea Nitrogen 16 mg/dL (9-16); Calcium 9.1 mg/dL (8.4-10.2); Cholesterol 176 mg/dL (<200); Estimated Glomerular Filt Rate > 60; Glucose Fasting 95 mg/dL (60-99); HDL Cholesterol 48 mg/dL (>40); LDL Cholesterol Calculated 109 mg/dL (<100); Total Protein 6.6 g/dL (6.5-8.0); Triglycerides 96 mg/dL (<150)
[2024-10-23 12:51] LABS: Alkaline Phosphatase 72 U/L (39-117)
== END 2024-10-23 06:05 | disposition home or self-care (01) ==
LOC: HO.HMGCLDS 06:04
PROVIDERS: PCP Internal Medicine; Visit Provider Internal Medicine
DX: Z12.5 Encounter for screening for malignant neoplasm of prostate (principal); R53.83 Other fatigue; E78.5 Hyperlipidemia, unspecified
CPT/HCPCS: 36415; 80053; 80061; 84153; 85025

== ENCOUNTER 2025-01-31 13:02 | Outpatient (AMB) | payer BC, SELFPAY ==
--- NOTE | 2025-01-31 13:07 | MHC.OFFVIS ---
Vital Signs 01/31/25 13:08 Height 5 ft 10 in Weight 210 lb 5.136 oz BMI 30.2 BP 110/70 Blood Pressure Location Rt brachial Position Sitting Pulse 57 Pulse Source Pulse Oximeter Pulse Oximetry (%) 98 Oxygen Delivery Method Room Air Intake Visit Reasons: Polymyalgia rheumatica Intake Note: Patient presents today for a pmr follow up. Accompanied by: Self / Same As Patient Allergies diesel exhaust Allergy (Mild, Uncoded 07/16/24 15:48) Migraine HPI HPI Polymyalgia rheumatica: Details: New patient visit. He has been a previous patient of our practice with last visit 08/11/2021. In the last 2.5 months he has intermittent weakness in bilateral arms. Unable to lift arms sometimes. Hard to use band pipe. He has groin pain and intermittent scalp pain. Arms feel heavy. Improved with activity. Rest causes heaviness and stiffness to return. Intermittent temporal pressure. Denies vision loss. He had right sided tooth extracted. He was experiencing right-sided jaw pain. Last time he was on prednisone was 3 years ago. He had difficulty tapering down past 40 mg daily because of visual disturbances. Once he was started on Actemra he was able to taper off of prednisone. He spent some time in [place] but will spend most of the year a [place]. The last time he saw a brine process operator in [place] was 3 years ago when he checked in. Copied from last note 08/11/2021 Dr. Ontiveros. The patient returns to Rheumatology here in [place] for evaluation of his presumed PMR/GCA. He had originally developed muscle aches in the shoulders, neck and hip area in April of 2017. He has been followed here intermittently over the last few years as well as with a brine process operator in [place] and also at the [facility]. With the illness initially in 2016 he was diagnosed with PMR. He had apparentlya modest response to prednisone but then developed headaches in February 2018 and was thought to have giant cell arteritis. Prednisone was increased to 80 mg daily when he had a positive ultrasound of the temporal artery done in [place]. Methotrexate was added to the prednisone but did not seem to be all that effective at controlling his inflammatory markers. Actemra was added in September of 2018 and with that he was able to taper the prednisone down to a much lower doses such that the Actemra was stopped in February 2019. At one point he did have a right temporal artery biopsy but it was negative. He saw at the [facility] in [place] and his Actemra was discontinued in February 2019. His last visit here at [place] was in October 2020 at which point he was on 3 mg daily prednisone. He continued to do well this fall and eventually tapered himself off the prednisone in 0.5 mg to 1 mg increments. He says he has been off the prednisone since April. Recently he feels fine with no shoulder or hip pains. There is slight stiffness in the groin area in the mornings that subsides within an hour. He has no headache, jaw claudication, or visual disturbance in the past year. he is no longer taking any analgesics, calcium, or vitamin-D. He drinks alcohol. Medical history in [facility] reviewed. Medication list in [facility] reviewed. [facility] Medical History History of giant cell arteritis Polymyalgia rheumatica Temporal arteritis GERD (gastroesophageal reflux disease) HLD (hyperlipidemia) Depression Migraine Vitamin D deficiency Osteopenia Adrenocortical insufficiency Surgical History H/O knee surgery Hx of bilateral cataract extraction History of hand surgery Family History (Updated 01/31/25 @ 13:12 by Indira Moe CMA) Father T2DM (type 2 diabetes mellitus) CVA (cerebral vascular accident) Brother Renal cancer Social History Are you a primary child care team lead to a significant other at home: No Do you presently have visiting nurse or other home services: No Alcohol intake: current Second Hand Smoke Exposure: No Current occupational status: employed Current occupation: [employer] - Right handed Physical Exam Vital Signs: Last Vital Signs Pulse 57 01/31/25 13:08 BP 110/70 01/31/25 13:08 Pulse Ox 98 01/31/25 13:08 Oxygen Delivery Method Room Air 01/31/25 13:08 BMI result Body Mass Index 30.2 Const Other: General: Comfortable CVS: RRR Respiratory: clear to auscultation bilaterally. Good respiratory effort Skin: No lesions seen MSK: He is able to get up out of chair from sitting position without using arms on armrest but with difficulty. He is unable to squat fully. No temporal tenderness. No tender joints. Normal range of motion of upper extremities and lower extremities. Vascular: +2 radial pulses bilateral. Unable to obtain temporal pulses bilaterally. Assessment & Plan Assessment & Plan (1) Polymyalgia rheumatica: Comment: Recurrence of scalp pain, right-sided temporal pain, bilateral arm heaviness, groin pain in remote history right-sided jaw pain is concerning for relapse GCA and PMR. We discussed next steps in management with obtaining labs including inflammatory markers. If inflammation markers are elevated, I will pursue left temporal artery biopsy to confirm GCA diagnosis as it will aid in management of his disease with prednisone dosing (high dose for GCA versus moderate dose for PMR) and reinitiating Actemra as Actemra is indicated for GCA and not PMR. Rheumatology history: He was diagnosed with PMR 2016 and started on prednisone with modest response. He developed headaches February 2017 and was diagnosed with presumed GCA. He had positive ultrasound of the temporal artery done in [place]. He was started on prednisone 80 mg daily. Methotrexate was ineffective in controlling inflammatory markers. Actemra was added in September of 2018 and was able to taper off of prednisone. Actemra was discontinued February 2019. He had a right temporal artery biopsy in [place] after being on treatment for at least 2 years but it was negative. Code(s): M35.3 - Polymyalgia rheumatica Category: Medical Plan: Labs ordered for baseline including inflammatory markers Lipid panel ordered fasting Return to clinic in 1-2 months (2) History of giant cell arteritis: Code(s): Z86.79 - Personal history of other diseases of the circulatory system Category: Medical Plan: See above Orders: Orders C Reactive Protein Today M35.3 - Polymyalgia rheumatica, Z79.899 - Other long-term (current) drug therapy, Z86.79 - Personal history of other diseases of the circulatory system Erythrocyte Sedimentation Rate Today M35.3 - Polymyalgia rheumatica, Z79.899 - Other long-term (current) drug therapy, Z86.79 - Personal history of other diseases of the circulatory system Alanine Aminotransferase Today M35.3 - Polymyalgia rheumatica, Z86.79 - Personal history of other diseases of the circulatory system Aspartate Amino Transferase Today M35.3 - Polymyalgia rheumatica, Z86.79 - Personal history of other diseases of the circulatory system Creatinine Today M35.3 - Polymyalgia rheumatica, Z86.79 - Personal history of other diseases of the circulatory system T Spot TB Today M35.3 - Polymyalgia rheumatica, Z86.79 - Personal history of other diseases of the circulatory system Hepatitis B,C Profile Today M35.3 - Polymyalgia rheumatica, Z86.79 - Personal history of other diseases of the circulatory system Complete Blood Count Auto Diff Today M35.3 - Polymyalgia rheumatica, Z86.79 - Personal history of other diseases of the circulatory system Lipid Panel 1 Day M35.3 - Polymyalgia rheumatica, Z86.79 - Personal history of other diseases of the circulatory system Coding Level of Care Code New Pt Level 4 (67856) Complex EM visit Add On G2211 Diagnoses Polymyalgia rheumatica M35.3 History of giant cell arteritis Z86.79
[2025-01-31 13:08] VITALS: BP 110/70; PULSE 57; O2SAT 98; BMI 30.2
--- OUTSIDE RECORDS SUMMARY | 2025-01-31 13:17 | XMS_ITS | Patient Health Record ---
Author Organization [facility] Address [address] [place] [address] [place] [id number] Care Team Providers Care Loss Prevention Coordinator Name Role Phone Rayne (RETIRED) Timur BRANDON Primary Care Provider Unavailable Scotty Jean Unavailable [phone] Reason For Referral No Information Medications Medication SIG (Take, Route, Frequency, Duration) Notes Start Date End Date Status Prilosec as needed just a few times a month Active MoviPrep 100 GM as directed Orally a s directed for 1 dose 06/08/2015 Active Problems Problem Type SNOMED Code ICD Code Onset Dates Problem Status W/U Status Risk Notes Problem [id number] Gastro-esophagea l reflux disease without esophagitis (K21.9) Active confirmed Problem [id number] Encounter for screening for malignant neoplasm of colon (Z12.11) Active confirmed Problem Encounter for screening for malignant neoplasm of rectum (Z12.12) Active confirmed Plan Of Treatment Pending Test Test Name Order Date GI BIOPSY 08/06/2015 Future Test Test Name Order Date UPPER GI ENDOSCOPY 06/04/2015 COLONOSCOPY 06/04/2015 Next Appt Details Provider Name:Scotty Jean , 02/12/2025 10:50:00 AM, [address] [place] [address], [address], [place], [address], Insurance Providers Payer Name Payer Address Payer Phone Subscriber Number Group Number Insured Name Patient Relationship to Insured Coverage Start Date Coverage End Date [facility] [address] [place], [place] [id number] CARLOS SAAVEDRA Self - patient is the insured Medical (General) History Medical History History ICD Code Denies DE,DM,CVA,Lung disease,renal dise ase GERD--upper GI series in October of 2014 describes a small hiatal hernia, reflux, thickening of distal esophageal folds, and mild narrowing of the distal esophagus Surgical History Surgery Date(Month/Year) Right knee surgeries Left 4th finger
--- OUTSIDE RECORDS SUMMARY | 2025-01-31 13:17 | XMS_ITS | Encounter Summary ---
Author Organization [facility] Address [address] [facility] ([place], [place]) [address] [place] [phone] Phone Care Team Providers Care Physicist [place] Name Role Phone Timur Mclain MD Primary Care Provider [phone]- [phone] Encounter Details Date Type Department Care Team (Late st Contact Info) Description 02/01/2019 Procedure Pass [facility] [address] [address] Social History Tobacco Use Types Packs/Day Years Used Date Smoking Tobacco: Former Cigars Smokeless Tobacco: Never Comments:occasional cigar Sex and Gender Information Value Date Recorded Sex Assigned at Not on file Legal Sex Male 9:15 AM EST Gender Identity Not on file Sexual Orientation Not on file documented as of this encounter Plan of Treatment Not on file documented as of this encounter Visit Diagnoses Not on filedocumented in this encounter Care Teams Physicist [place] Relationship Specialty Start Date End Date Timur Mclain MD [address] [place] [id number] PCP - General Internal Medicine 11/13/18 documented as of this encounter Additional Source Comments The information contained in this document represents components of the legal health record. It is not the complete legal health record.[facility]
== END 2025-01-31 13:48 | disposition home or self-care (01) ==
LOC: HO.RHES 13:03
PROVIDERS: PCP Internal Medicine; Visit Provider Internal Medicine Rheumatology
DX: M35.3 Polymyalgia rheumatica (principal); Z86.79 Personal history of other diseases of the circulatory system
CPT/HCPCS: 99204

== ENCOUNTER 2025-02-01 07:34 | Outpatient (REF) | payer BC, SELFPAY ==
--- OUTSIDE RECORDS SUMMARY | 2025-02-01 07:37 | XMS_ITS | Patient Health Record ---
Author Organization [facility] Address [address] [place] [address] Care Team Providers Care Md Physician Dermatologist Name Role Phone Rayne (RETIRED) Timur BRANDON Primary Care Provider Unavailable Scotty Jean Unavailable [phone] Reason For Referral No Information Medications Medication SIG (Take, Route, Frequency, Duration) Notes Start Date End Date Status Prilosec as needed just a few times a month Active MoviPrep 100 GM as directed Orally a s directed for 1 dose 06/08/2015 Active Problems Problem Type SNOMED Code ICD Code Onset Dates Problem Status W/U Status Risk Notes Problem [id number] Gastro-esophagea l reflux disease without esophagitis (K21.9) Active confirmed Problem 485302461 Encounter for screening for malignant neoplasm of colon (Z12.11) Active confirmed Problem Screening for malignant neoplasm of rectum (540690854) Encounter for screening for malignant neoplasm of rectum (Z12.12) Active confirmed Plan Of Treatment Pending Test Test Name Order Date GI BIOPSY 08/06/2015 Future Test Test Name Order Date UPPER GI ENDOSCOPY 06/04/2015 COLONOSCOPY 06/04/2015 Next Appt Details Provider Name:Scotty Jean , 02/12/2025 10:50:00 AM, [address], [address], [place], [address], Insurance Providers Payer Name Payer Address Payer Phone Subscriber Number Group Number Insured Name Patient Relationship to Insured Coverage Start Date Coverage End Date [facility] [address] [place], [place] [id number] [phone] [id number] CARLOS SAAVEDRA Self - patient is the insured Medical (General) History Medical History History ICD Code Denies NE,DM,CVA,Lung disease,renal dise ase GERD--upper GI series in October of 2014 describes a small hiatal hernia, reflux, thickening of distal esophageal folds, and mild narrowing of the distal esophagus Surgical History Surgery Date(Month/Year) Right knee surgeries Left 4th finger
--- OUTSIDE RECORDS SUMMARY | 2025-02-01 07:37 | XMS_ITS | Encounter Summary ---
Author Organization [facility] Address [address] [facility] [address] [place] [address] Phone Care Team Providers Care Tablet Making Machine Operator Name Role Phone Timur Mclain MD Primary Care Provider [phone]- [phone] Encounter Details Date Type Department Care Team (Late st Contact Info) Description 02/01/2019 Procedure Pass [facility] [address] [address] Social History Tobacco Use Types Packs/Day Years [...] on filedocumented in this encounter Care Teams Tablet Making Machine Operator Relationship Specialty Start Date End Date Timur Mclain MD [address] [place] [id number] PCP - General Internal Medicine 11/13/18 documented as of this encounter Additional Source Comments The information contained in this document represents components of the legal health record. It is not the complete legal health record.[facility]
[2025-02-01 10:10] LABS: MANUAL DIFF FLAG NO
[2025-02-01 10:16] LABS: Hematocrit 43.7 % (42.0-52.0); Hemoglobin 14.8 g/dl (14.0-18.0); Imm Gran Abs Auto 0.02 X10*3/uL (0.00-0.03); Imm Gran Pct Auto 0.3 % (0.0-0.4); Lymphocytes Absolute Auto 1.3 X10*3/uL (1.2-4.9); Mean Corpuscular HGB Conc 33.9 g/dl (31.0-36.0); Mean Corpuscular Hemoglobin 32.7 pg (27.0-33.0); Mean Corpuscular Volume 96.5 fL (80.0-98.0); NRBC Abs Auto 0.000 X10*3/uL (0.0-0.012); NRBC Pct Auto 0.0 /100WBC (0.0-0.2); Platelet Count 190 X10*3/uL (160-400); Red Blood Count 4.53 X10*6/uL (4.60-5.80); White Blood Count 5.8 X10*3/uL (4.8-10.8)
[2025-02-01 10:50] LABS: Alanine Aminotransferase 23 U/L (0-40); Aspartate Amino Transferase 22 U/L (5-37); Cholesterol 182 mg/dL (<200); Estimated Glomerular Filt Rate > 60; HDL Cholesterol 46 mg/dL (>40); Triglycerides 105 mg/dL (<150)
[2025-02-02 08:28] LABS: HBS Num1 54.04 mIU/mL (0-7.99); HBc Num1 0.08 S/CO (0.00-0.79); HBsAGNum1 0.49 S/CO (0.00-0.99); Hepatitis B Surface Antigen Negative (Negative); ~HepC Num1 0.08 S/CO (0.00-0.79); ~Hepatitis B Surface Antibody REACTIVE (Nonreactive); ~Hepatitis C Antibody Nonreactive (Nonreactive)
[2025-02-04 16:38] LABS: TS Negative Control Passed; TS Panel A 1; TS Panel B 0; TS Positive Control Passed; TSpotTB Negative (Negative)
== END 2025-02-01 07:35 | disposition home or self-care (01) ==
LOC: HO.HMGCLDS 07:34
PROVIDERS: Visit Provider Internal Medicine Rheumatology
DX: M35.3 Polymyalgia rheumatica (principal); Z79.899 Other long term (current) drug therapy; Z86.79 Personal history of other diseases of the circulatory system
CPT/HCPCS: 36415; 80061; 82565; 84450; 84460; 85025; 85652; 86481; 86704; 86706; 86803; 87340

== ENCOUNTER 2025-02-09 06:42 | Outpatient (REF) | payer BC, SELFPAY ==
--- OUTSIDE RECORDS SUMMARY | 2025-02-09 06:45 | XMS_ITS | Clinical Summary ---
Author Organization [facility] Address [address] [place] [address] Phone Care Team Providers Care Addiction Psychiatrist Name Role Phone Timur Mclain MD Primary Care Provider [phone]- [phone] Allergies No known active allergies Medications omeprazole (PRILOSEC) 20 MG capsule 11 11/24/2018 Active predniSONE (DELTASONE) 20 MG tablet Take 40 mg by mouth daily. 2 10/23/2018 Active ACTEMRA 162 mg/0.9 mL subcutaneous injection syringe 11/30/2018 A ctive Ca cit-D3-mag#[id number] (CALTRATE 600+D) 600 mg calcium- 800 unit-50 mg Tab Take 1 tablet by mouth daily. Active Active Problems Problem Noted Date Diagnosed Date Giant cell arteritis with polymyalgia rheumatica 01/01/2019 Social History Tobacco Use Types Packs/Day Years Used Date Smoking Tobacco: Former Cigars Smokeless Tobacco: Never Comments:occasional cigar Education Answer Date Recorded Are you interested in more education? Not on davina e 10/08/2022 Are you concerned about learning? Not on file 10/08/2022 No 10/08/2022 No 10/08/2022 Digital Access Answer Date Recorded No 11/08/2022 No 11/08/2022 No 11/08/2022 Reliable internet access at home? Not on file 11/08/2022 Device with a working camera? Not on file Sex and Gender Information Value Date Recorded Sex Assigned at Not on file Legal Sex Male 9:15 AM EST Gender Identity Not on file Sexual Orientation Not on file Last Filed Vital Signs Vital Sign Reading Time Taken Comments Blood Pressure 147/95 02/01/2019 3:09 PM EDT Pulse 78 02/01/2019 3:09 PM EDT Temperature 36.6 C (97.8 F) 01/29/2019 2:16 PM EDT Respiratory Rate 14 02/01/2019 3:09 PM EDT Oxygen Saturation 98% 02/01/2019 3:09 PM EDT Inhaled Oxygen Concentration - - Weight 108.4 kg (239 lb) 01/29/2019 2:16 PM EDT Height 178 cm (5' 10.08 ) 01/29/2019 2:16 PM EDT Body Mass Index 34.22 01/29/2019 2:16 PM EDT Plan of Treatment Health Maintenance Due Date Last Done Comments Adult Td,Tdap Booster 1962 LIPID PANEL 1962 DEPRESSION SCREENING 1974 SMOKING Hx and SMOKELESS TOBACCO SCREENING 1975 HEPATITIS C SCREENING 1980 HIV ONE-TIME SCREENING (18-6 5 YEARS) 1980 ZOSTER VACCINES (1 of 2) 1981 COLOGUARD 2007 COLONOSCOPY 2007 COLORECTAL CANCER SCREENING 2007 FIT TEST 2007 FOBT 2007 SIGMOIDOSCOPY 2007 VIRTUAL COLONOSCOPY 2007 PNEUMOCOCCAL VACCINES (50+ years) (2 of 2 - PPSV23) 11/08/2018 09/13/2018 COVID-19 VACCINE (3 - Modern a risk series) 11/28/2020 10/31/2020, 10/03/2020 RSV VACCINE (1 - Risk 60-74 years 1-dose series) 2022 HEPATITIS A VACCINES Aged Out No long er eligible based on patient's age to complete this topic HIB VACCINES Aged Out No longer eligi ble based on patient's age to complete this topic MENINGOCOCCAL VACCINES (ACWY) Aged Out No longer eligible based on patient's age to complete this topic MENINGOCOCCAL VACCINES (B) Aged Out N o longer eligible based on patient's age to complete this topic Medical Devices Not on file [place] [place] [address] [address] [place] [address] [place] [place] [address] [place] [address] PPO EPO PPO EPO PPO EPO PPO EPO [place] [address] [place] [address] PPO EPO Care Teams Addiction Psychiatrist Relationship Specialty Start Date End Date Timur Mclain MD [address] [place] [id number] PCP - General Internal Medicine 11/13/18 Additional Source Comments The information contained in this document represents components of the legal health record. It is not the complete legal health record.[facility]
--- OUTSIDE RECORDS SUMMARY | 2025-02-09 06:45 | XMS_ITS | Patient Health Record ---
Author Organization [facility] Address [address] [place] [address] [place] [phone] Care Team Providers Care Careers Counsellor Name Role Phone Rayne (RETIRED) Timur BRANDON Primary Care Provider Unavailable Scotty Jean Unavailable [phone] Reason For Referral No Information Medications Medication SIG (Take, Route, Frequency, Duration) Notes Start Date End Date Status Prilosec as needed just a few times a month Active MoviPrep 100 GM as directed Orally a s directed for 1 dose 06/08/2015 Active Problems Problem Type SNOMED Code ICD Code Onset Dates Problem Status W/U Status Risk Notes Problem 021575433 Gastro-esophagea l reflux disease without esophagitis (K21.9) Active confirmed Problem 160052477 Encounter for screening for malignant neoplasm of colon (Z12.11) Active confirmed Problem Encounter for screening for malignant neoplasm of rectum (Z12.12) Active confirmed Plan Of Treatment Pending Test Test Name Order Date GI BIOPSY 08/06/2015 Future Test Test Name Order Date UPPER GI ENDOSCOPY 06/04/2015 COLONOSCOPY 06/04/2015 Next Appt Details Provider Name:Scotty Jean , 02/12/2025 10:50:00 AM, [address] [place] [address], [address], [place], [address], Insurance Providers Payer Name Payer Address Payer Phone Subscriber Number Group Number Insured Name Patient Relationship to Insured Coverage Start Date Coverage End Date [facility] [address] [place], [place] [id number] CARLOS SAAVEDRA Self - patient is the insured Medical (General) History Medical History History ICD Code Denies [place],DM,CVA,Lung disease,renal dise ase GERD--upper GI series in October of 2014 describes a small hiatal hernia, reflux, thickening of distal esophageal folds, and mild narrowing of the distal esophagus Surgical History Surgery Date(Month/Year) Right knee surgeries Left 4th finger
--- OUTSIDE RECORDS SUMMARY | 2025-02-09 06:45 | XMS_ITS | Encounter Summary ---
Author Organization [facility] Address [address] [facility] [address] [place] [phone] Phone Care Team Providers Care Insert Cutter Name Role Phone Timur Mclain MD Primary Care Provider [phone] Encounter Details Date Type Department Care Team (Late st Contact Info) Description 02/01/2019 Procedure Pass [facility] [address] [address] Social History Tobacco Use Types Packs/Day Years [...] on filedocumented in this encounter Care Teams Insert Cutter Relationship Specialty Start Date End Date Timur Mclain MD [address] [place] [id number] PCP - General Internal Medicine 11/13/18 documented as of this encounter Additional Source Comments The information contained in this document represents components of the legal health record. It is not the complete legal health record.[facility]
== END 2025-02-09 06:43 | disposition home or self-care (01) ==
LOC: HO.HMGCLDS 06:42
PROVIDERS: Visit Provider Internal Medicine Rheumatology
DX: M35.3 Polymyalgia rheumatica (principal); Z79.899 Other long term (current) drug therapy; Z86.79 Personal history of other diseases of the circulatory system
CPT/HCPCS: 36415; 85652; 86140

== ENCOUNTER 2025-02-15 12:51 | Outpatient (AMB) | payer BC, SELFPAY ==
--- OUTSIDE RECORDS SUMMARY | 2025-02-12 06:50 | XMS_ITS ---
Author Organization [facility] Address [address] [place] [phone] Care Team Providers Care Lime Vat Tender Name Role Phone YUNIER HEATON Primary Care Provider Scotty Hoang [phone] Allergies No Known Allergies REASON FOR VISIT Patient presents today for a heme positive stool cards Problems Problem Type SNOMED Code ICD Code Onset Dates Problem Status W/U Status Risk Notes Problem Dysphagia (32205388) Dysphagia (R13.10) Active confirmed Problem Gastroesophageal reflux disease (475114136) GERD (gastroesopha geal reflux disease) (K21.9) Active confirmed Problem Colon cancer screening (443311522) Colon cancer screening (Z12.11) Active confirmed Problem Abnormal feces (990662487) Heme + stool (R19.5) Active confirmed Vital Signs Blood pressure systolic 111 mm Hg 02/13/20 25 Blood pressure diastolic 77 mm Hg 025 Height 72 in 02/12/2025 Weight 208 lbs 02/12/2025 BMI 28.21 kg/m2 02/12/2025 Procedures Procedure Date Ordered Date Performed Result Body Sit e UPPER GI ENDOSCOPY BALLOOON DILATION OF ESOPH 02/12/2025 N/A COLONOSCOPY 02/12/2025 N/A Encounters Encounter Location Date Provider Diagnosis [facility] [address] [place] [phone] 02/12/2025 Scotty Jean Dysphagia R13.10 ; GERD [...] NICANOR MCNAIR CDOB: [birth year] (64 yo M)Acc No.[id number]:02/12/2025 Progress Notes Patient: NICANOR MARCIAL Provider: Jose Ramon Jean MD :1960 A ge:64 Y S ex:Male Date:02/12/2025 Address:[address] [place] [address] [place], [id number] Pcp:YUNIER HEATON Subjective: * Chief Complaints: * [...] last month. * Medical History: D enies [place],DM,CVA,Lung disease,renal disease, GERD--upper GI series in October of 2014 describes a small hiatal hernia, reflux, thickening of distal esophageal folds, and mild narrowing of the distal esophagus, PMR and Giant Cell Arteritis--sees [facility] [place]. Brown--going to start prednisone and Actemra injections as of the 02/2025 OV, Negative colonoscopy in 07/2015, EGD 07/2015 with erosive esophagitis--no Saeed's, small hiatal hernia. * Surgical History: R ight knee surgeriesX5 , Left 4th finger . * Family History: F ather: , diagnosed with Diabetes, HTN (hypertension). M other: . S iblings: sister, diagnosed with Diabetes. No known hx of colon cancer, polyps, or liver disease. BROTHER RENAL CANCER. * Social History: T obacco Use: T obacco Use/Smoking A re you a: nonsmoker. D rugs/Alcohol: A lcohol Screen P oints: 2, Interpretation: Negative. Jose mayberry: Jose arital status: . 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 N onsmoker; 1 drink per night, except [...] * Procedure Codes: 4 3219 ESOPHAGUS ENDOSCOPY, [address] DIAGNOSTIC COLONOSCOPY * Preventive Medicine: Counseling: C are goal follow-up plan: A juan francisco Normal BMI Follow-up G iving encouragement to exercise, B ME management provided Y es. * * The named appointment provid er may or may not be the originator of this progress note, and it is not deemed complete until electronically signed by the appointment provider. Sign off status: Pending * Provider: Jose Ramon Jean MD Date: 02/12/2025 Generated for Topher ramirez/Seble/Marybelitting on: 02/15/2025 01:04 PM EDT History and Physical Notes * [...]
--- NOTE | 2025-02-15 12:58 | MHC.OFFVIS ---
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 Pt states he has hx of right temporal artery biopsy in 2018. Also of note, he does go back and forth for healthcare between [facility] and [place]. Last Temporal artery bx was done at [facility]. STates he gets temporal pain bilaterally or more so on the right side. Director Of Group Sales Required: No Accompanied by: Self / Same As Patient Allergies diesel exhaust Allergy (Mild, Uncoded 02/15/25 13:02) Migraine HPI HPI ASSEMBLY SUPERVISOR/ Rheum Ref for GCA: Details: The patient is a 64-year-old male presenting for evaluation of giant cell arteritis. The patient was diagnosed with giant cell arteritis in April 2017 and reports inconsistent symptoms over the last three months. Blood work indicates elevated markers, though not as high as previous episodes. A right-sided temporal artery biopsy in 2020 was negative, but a positive Doppler test was noted two years prior. The patient has been on high-dose steroids for three years prior to the biopsy, which may have influenced the biopsy results. He has a history of occasional smoking, limited to celebratory cigars once or twice a year, and a family history of diabetes, though he does not have the condition. He now presents for vascular evaluation. [facility] Medical History History of giant cell arteritis Polymyalgia rheumatica Temporal arteritis GERD (gastroesophageal reflux disease) HLD (hyperlipidemia) Depression Migraine Vitamin D deficiency Osteopenia Adrenocortical insufficiency Surgical History H/O knee surgery Hx of bilateral cataract extraction History of hand surgery Family History Father T2DM (type 2 diabetes mellitus) CVA (cerebral vascular accident) Brother Renal cancer Social History Are you a primary animal care taker to a significant other at home: No Do you presently have visiting nurse or other home services: No Alcohol intake: current Second Hand Smoke Exposure: No Current occupational status: employed 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 Review of Systems Const All systems reviewed & are unremarkable except as noted in HPI and below Reports no additional complaints ENT Reports Normal hearing present Card Denies chest pain, Denies chest pain at rest, Denies chest pain with activity and Denies pedal edema Resp Denies cough GI Denies abdominal pain Musc Denies abnormal gait, Denies muscle cramps and Denies radiating pain into limb Skin/Breast Denies skin ulcer and Denies wounds Neuro Reports Normal hearing present and Denies abnormal gait Psych Reports no additional complaints Physical Exam Vital Signs: BMI result Body Mass Index 30.1 Const General: cooperative, healthy appearing and comfortable Orientation/consciousness: oriented to person, oriented to place and oriented to time HEENT Head: Yes normal to inspection Neck Neck: Yes normal visual inspection Carotids: no bruits Chest Chest palpation & inspection: normal inspection of the chest Resp Effort & Inspection: normal respiratory effort and able to speak in complete sentences Auscultation: clear to auscultation bilaterally, no crackles, no rales, no rhonchi and no wheezes Cardio Rate: regular rate Rhythm: regular rhythm Heart sounds: S1 normal heart sound present and S2 normal heart sound present Bruits: no carotid bruits Peripheral pulses: Peripheral pulses 2+ throughout GI Inspection: Yes normal to inspection Skin Other: Right temporal incision noted Wounds: no wounds Hair: normal Neuro General: oriented to person, oriented to place and oriented to time Cranial nerves: Yes CN's II-XII intact bilaterally and Yes Normal hearing present Cognition (Neuro): normal cognition Motor exam (neuro): 5/5 motor strength present throughout Extrem Other: venous exam: No significant superficial varicosities or spider telangiectasias, minimal edema General: No clubbing, No cyanosis and No edema Psych Appearance: grossly normal Mental Status: mental status grossly normal Speech and movement: Normal speech and movement present Results Reviewed Results Reviewed: ESR 18 CRP 0.66 Assessment & Plan Assessment & Plan (1) History of giant cell arteritis: Code(s): Z86.79 - Personal history of other diseases of the circulatory system Category: Medical Plan: I discussed with the patient the need for a left temporal artery biopsy to confirm the diagnosis of giant cell arteritis,. Risks benefits complications were discussed in detail with the patient. I also explained the procedure details, including the use of skin glue and the need for anesthesia, which requires the patient to refrain from driving post-procedure. We also discussed scheduling the procedure for early next week, with potential downtime of a day or 2 after the procedure.. Plan Patient was informed and verbally consented to the use of an ambient scribe for clinic note documentation during this visit. Patient Instructions: - Schedule the left temporal artery biopsy for early next week. - Avoid driving on the day of the procedure due to anesthesia. - Plan for downtime for a proximally 2 day Coding Level of Care Code New Pt Level 4 (55069) Diagnoses History of giant cell arteritis Z86.79
[2025-02-15 12:59] VITALS: BMI 30.1
--- OUTSIDE RECORDS SUMMARY | 2025-02-15 13:04 | XMS_ITS | Clinical Summary ---
Author Organization [facility] Address [address] [place] [address] Phone Care Team Providers Care Rag Sorter And Cutter Name Role Phone Timur Mclain MD Primary Care Provider [phone]- [phone] Allergies No known active allergies Medications omeprazole (PRILOSEC) 20 MG capsule 11 11/24/2018 Active predniSONE (DELTASONE) 20 MG tablet Take 40 mg by mouth daily. 2 10/23/2018 Active ACTEMRA 162 mg/0.9 mL subcutaneous injection syringe 11/30/2018 A ctive Ca cit-D3-mag#11-zin l-pplh-amk-bor (CALTRATE 600+D) 600 mg calcium- 800 unit-50 [...] HEPATITIS C SCREENING 1980 HIV ONE-TIME SCREENING (18-65 YEARS) 1980 ZOSTER VACCINES (1 of 2) 1981 COLOGUARD 2007 COLONOSCOPY 2007 COLORECTAL CANCER SCREENING 2007 FIT TEST 2007 FOBT 2007 SIGMOIDOSCOPY 2007 VIRTUAL COLONOSCOPY 2007 PNEUMOCOCCAL VACCINES (50+ years) (2 of 2 - PPSV23) 11/08/2018 09/13/2018 COVID-19 VACCINE (3 - Moderna risk series) 11/28/2020 10/31/2020, 10/03/2020 RSV VACCINE (1 - Risk 60-74 years 1-dose series) 2022 INFLUENZA VACCINE (#1) 2025 0, 04/04/2019, 04/21/2018, Additional history exists HEPATITIS A VACCINES Aged Out No long [...] topic Medical Devices Not on file Insurance PPO EPO PPO EPO [place] [address] [place] [address] [address] [address] [address] PPO EPO PPO EPO PPO EPO Care Teams Rag Sorter And Cutter Relationship Specialty Start Date End Date Timur Mclain MD [address] [place] [id number] PCP - General Internal Medicine 11/13/18 Additional Source Comments The information contained in this document represents components of the legal health record. It is not the complete legal health record.[facility]
--- OUTSIDE RECORDS SUMMARY | 2025-02-15 13:04 | XMS_ITS | Encounter Summary ---
Author Organization [facility] Address [address] [facility] [address] [place] [address] Phone Care Team Providers Care Air Traffic Control Specialist Center Name Role Phone Timur Mclain MD Primary Care Provider [phone]- [phone] Encounter Details Date Type Department Care Team (Late st Contact Info) Description 02/01/2019 Procedure Pass [facility] [address] [address] Social History Tobacco Use Types Packs/Day Years [...] on filedocumented in this encounter Care Teams Air Traffic Control Specialist Center Relationship Specialty Start Date End Date Timur Mclain MD [address] [place] [id number] PCP - General Internal Medicine 11/13/18 documented as of this encounter Additional Source Comments The information contained in this document represents components of the legal health record. It is not the complete legal health record.[facility]
--- OUTSIDE RECORDS SUMMARY | 2025-02-15 13:04 | XMS_ITS | Patient Health Record ---
Author Organization [facility] Address [address] [place] [address] Care Team Providers Care Claims Support Specialist Name Role Phone YUNIER HEATON Primary Care Provider Scotty Hoang [phone] Allergies No Known Allergies Reason For Referral No Information Problems Problem Type SNOMED Code ICD Code Onset Dates Problem Status W/U Status Risk Notes Problem Colon cancer screening (253215442) Colon cancer screening (Z12.11) Active confirmed Problem 786537167 Gastro-esophag eal reflux disease without esophagitis (K21.9) Active confirmed Problem 214898458 Encounter for screening for malignant neoplasm of colon (Z12.11) Active confirmed Problem Screening for malignant neoplasm of rectum (146245791) Encounter for screening for malignant neoplasm of rectum (Z12.12) Active confirmed Problem Dysphagia (46324707) Dysphagia (R13.10) Active confirmed Problem Abnormal feces (143089363) Heme + stool (R19.5) Active confirmed Problem Gastroesophageal reflux disease (164668901) GERD (gastroesophag eal reflux disease) (K21.9) Active confirmed Vital Signs Blood pressure diastolic 77 mm Hg 02/12/2025 Height 72 in 02/12/2025 Blood pressure systolic 111 mm Hg 02/12/2025 Weight 208 lbs 02/12/2025 BMI 28.21 kg/m2 02/12/2025 Procedures Procedure Date Ordered Date Performed Result Body Sit e UPPER GI ENDOSCOPY BALLOOON DILATION OF ESOPH 02/12/2025 N/A COLONOSCOPY 02/12/2025 N/A Encounters Encounter Location Date Provider Diagnosis [facility] [address] [place] [address] 02/12/2025 Scotty Jean Dysphagia R13.10 ; GERD [...] BALLOOON DILATION OF ESOPH 02/12/2025 COLONOSCOPY 02/12/2025 Future Test Test Name Order Date UPPER GI ENDOSCOPY 06/04/2015 COLONOSCOPY 06/04/2015 Insurance Providers Payer Name Payer Address Payer Phone Subscriber Number Group Number Insured Name Patient Relationship to Insured Coverage Start Date Coverage End Date [facility] [address] [place] [address] [phone] [id number] NICANOR MCNAIR Self - patient is the insured Medical (General) History Medical History History ICD Code Denies NV,DM,CVA,Lung disease,renal dise ase GERD--upper GI series in October of 2014 describes a small hiatal hernia, reflux, thickening of distal esophageal folds, and mild narrowing of the distal esophagus PMR and Giant Cell Arteritis --sees [facility] Rheumatology Dr. Brown--going to start prednisone and Actemra injections as of the 02/2025 OV Negative colonoscopy in 07/2015 EGD 07/2015 with erosive esophagitis--no Saeed's, small hiatal hernia Surgical History Surgery Date(Month/Year) Left 4th finger Right knee surgeriesX5
== END 2025-02-15 13:33 | disposition home or self-care (01) ==
LOC: HO.HVS 12:51
PROVIDERS: PCP Internal Medicine; Visit Provider Surgery Vascular Surgery
DX: Z86.79 Personal history of other diseases of the circulatory system (principal)
CPT/HCPCS: 99204

== ENCOUNTER → 2025-02-15 12:51 | Outpatient (BNVA) | payer BC, SELFPAY | PROVIDERS: PCP Internal Medicine; Visit Provider Surgery Vascular Surgery | DX: M31.6 Other giant cell arteritis (principal); Z86.79 Personal history of other diseases of the circulatory system; Z13.89 Encounter for screening for other disorder ==

== ENCOUNTER 2025-02-19 05:53 | Day surgery (SDC) | payer BC, SELFPAY ==
[2025-02-19 06:09] VITALS: BMI 29.5
[2025-02-19 06:20] VITALS: BP 126/78; PULSE 58; RESP 15; TEMP 36.2; O2SAT 98
[2025-02-19] MEDS: Lactated Ringers 1,000 ML 100 ML IVCONT (06:27)
--- NOTE | 2025-02-19 07:16 | P.CONAN_ITS ---
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) Polymyalgia rheumatica (Acute) Vitamin D deficiency (Acute) Osteopenia (Acute) Adrenocortical insufficiency (Acute) Past Medical History Medical History History of giant cell arteritis Polymyalgia rheumatica Temporal arteritis GERD (gastroesophageal reflux disease) HLD (hyperlipidemia) Depression Migraine Vitamin D deficiency Osteopenia Adrenocortical insufficiency Family History Family History Father T2DM (type 2 diabetes mellitus) CVA (cerebral vascular accident) Brother Renal cancer Surgical History Surgical History (Updated 02/19/25 @ 06:08 by Marine Perdomo RN) History of temporal artery biopsy H/O knee surgery Hx of bilateral cataract extraction History of hand surgery Social History Social History Are you a primary director of home care hospice to a significant other at home: No Do you presently have visiting nurse or other home services: No Alcohol intake: current Patient Tobacco Use Status: Current someday Tobacco user Tobacco use type: Cigar Second Hand Smoke Exposure: No Use of substances other than those prescribed or required for medical reasons: No Are you DNR?: No Advance Directives: No Advance Directives Information Provided: Yes Current occupational status: employed 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 Meds Allergies Allergy/AdvReac Type Severity Reaction Status Date / Time diesel exhaust Allergy Mild Migraine Uncoded 02/19/25 06:08 Exam Pertinent Lab Results Pertinent Lab Results: Laboratory Tests 10/23/24 02/01/25 06:13 07:40 WBC 5.8 Hgb 14.8 Hct 43.7 Plt Count 190 Sodium 142 Potassium 4.5 Chloride 107 Carbon Dioxide 27 BUN 16 Creatinine 0.80 Assessment and Plan Assessment Anesthesia Assessment: Chart Reviewed Documented by User: Marine Underwood DO 02/19/25 07:19 [facility] Past Medical History Medical History History of giant cell arteritis Polymyalgia rheumatica Temporal arteritis GERD (gastroesophageal reflux disease) HLD (hyperlipidemia) Depression Migraine Vitamin D deficiency Osteopenia Adrenocortical insufficiency Family History Family History Father T2DM (type 2 diabetes mellitus) CVA (cerebral vascular accident) Brother Renal cancer Family history of problems with anesthesia: No Surgical History Surgical History (Updated 02/19/25 @ 06:08 by Marine Perdomo RN) History of temporal artery biopsy H/O knee surgery Hx of bilateral cataract extraction History of hand surgery History of Problems with Anesthesia: No Social History Social History Are you a primary director of home care hospice to a significant other at home: No Do you presently have visiting nurse or other home services: No Alcohol intake: current Patient Tobacco Use Status: Current someday Tobacco user Tobacco use type: Cigar Second Hand Smoke Exposure: No Use of substances other than those prescribed or required for medical reasons: No Are you DNR?: No Advance Directives: No Advance Directives Information Provided: Yes Current occupational status: employed 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 Meds Allergies Allergy/AdvReac Type Severity Reaction Status Date / Time diesel exhaust Allergy Mild Migraine Uncoded 02/19/25 06:08 Exam Exam Date and Time: 02/19/25 0700 Height,Weight and Vital Signs: Height 5 ft 11 in Weight 95.8 kg Vital Signs Temperature 97.2 F 02/19/25 06:20 Pulse Rate 58 02/19/25 06:20 Respiratory Rate 15 02/19/25 06:20 Blood Pressure 126/78 02/19/25 06:20 Pulse Oximetry 98 02/19/25 06:20 Oxygen Delivery Method Room Air 02/19/25 06:20 Temperature 97.2 F 02/19/25 06:20 Pulse Rate 58 02/19/25 06:20 Respiratory Rate 15 02/19/25 06:20 Blood Pressure 126/78 02/19/25 06:20 Pulse Oximetry 98 02/19/25 06:20 Oxygen Delivery Method Room Air 02/19/25 06:20 Airway Mallampati Class: II TM Dist: >3cm Neck ROM: Full Loose/Missing/Broken Teeth: Yes (several missing molars but patient denies any loose or broken teeth) Heart: S1S2 Lungs: CTAB Assessment and Plan Assessment Anesthesia Assessment: Anesthesia Plan Discussed and Chart Reviewed Final Anesthetic Review Family History of Problems with Anesthesia: No History of Problems with Anesthesia: No NPO: Yes ASA Class: II Final Preanesthetic Review: No Changes in Pt Med Stat, Meds/Allgs Chart Reviewed, Consent Obtained/Reviewed and Anes Risks/Benef Reviewed Patient Risk: Low Procedure Risk: Low Anesthetic Plan Anesthetic Plan: GA (vs MAC - will discuss with surgeon. Patient had right side temporal artery biopsy under local with a different surgeon.) and Agree w/ Assess. and Plan Disposition: Standard PACU
--- NOTE | 2025-02-19 07:41 | MHC.SHP ---
Pre-Procedural Eval Section A - 24 Hr Update-Section A only Date of Service: 02/19/25 The patient is an INPATIENT: No Changes since office visit: Yes Patient answered all questions The patient has been examined within 24 hours of the surgical procedure. The History & Physical has been completed within 30 days and I have reviewed it.: Yes Section B - Complete if H&P > 30 days Chief Complaint: Other giant cell arteritis Allergies: Allergies Allergy/AdvReac Type Severity Reaction Status Date / Time diesel exhaust Allergy Mild Migraine Uncoded 02/19/25 06:08 Plan I have reviewed the history and physical and performed a pertinent physical examination on my patient. No changes have occurred unless specified. Time Spent With Patient Time: Total time managing care of this patient today ____ minutes.
--- NOTE | 2025-02-19 08:28 | W.PM.OPN ---
Operative Note Operative Note Date of Service: 02/19/25 Narrative: Operative note by [facility] Preoperative diagnosis: Left temporal headache Postoperative diagnosis: Same Procedure: Left temporal artery biopsy Surgeon:Albert Trinidad M.D. Healthcare Economics Manager: None Anesthesia: General Specimens: 1 Drains: None Estimated blood loss: Minimal Indications: 64-year-old gentleman with left-sided temporal headache presents for evaluation and diagnosis of giant cell arteritis. The patient has signed the informed consent after reviewing risks, complications, benefits, and alternatives previously discussed with the patient. The patient was given the opportunity to ask any additional questions or voice any concerns. All questions were answered to the patient's satisfaction. Procedure in detail: Patient was brought to the operating room prior to which a time-out was called for patient identification and site verification. Left temporal region was prepped and draped in standard surgical fashion. A proximally a 5 cm incision was carried out over the left preauricular temporal region. We had previously palpated a temporal pulse there. We got down through the skin and fascia up we dissected clear and were easily able to identify the temporal artery. Proximal and distal ends were ligated with 3-0 silk ties. Proximally a 2 cm segment was sent off for specimen. Adequate hemostasis was achieved. Deep layer was reapproximated using 3-0 Polysorb superficial layer with 4-0 Monocryl and finally Dermabond as a sterile dressing. Patient tolerated the procedure well. This note is constructed using voice recognition software. While every effort has been made to ensure accuracy, phototypesetting equipment monitor errors may have been included. Thank you for allowing me to participate in the care of your patient. Yours sincerely, Albert Trinidad MD, FACS, R.P.V.I.
[2025-02-19 08:34] VITALS: BP 123/70; PULSE 84; RESP 12; TEMP 36.1; O2SAT 95
[2025-02-19 08:45] VITALS: BP 125/72; PULSE 70; RESP 12; O2SAT 95
[2025-02-19 09:00] VITALS: BP 116/68; PULSE 71; RESP 12; TEMP 36.1; O2SAT 96
== END 2025-02-19 09:22 | disposition home or self-care (01) ==
PROVIDERS: Visit Provider Surgery Vascular Surgery
PROC: (CPT 37609; principal; 2025-02-19 07:30)
DX: G44.209 Tension-type headache, unspecified, not intractable (principal); Z86.79 Personal history of other diseases of the circulatory system; G43.909 Migraine, unspecified, not intractable, without status migrainosus; E27.40 Unspecified adrenocortical insufficiency; M35.3 Polymyalgia rheumatica; M85.80 Other specified disorders of bone density and structure, unspecified site; E55.9 Vitamin D deficiency, unspecified; K21.9 Gastro-esophageal reflux disease without esophagitis; E78.5 Hyperlipidemia, unspecified; F32.A Depression, unspecified; Z79.52 Long term (current) use of systemic steroids; F17.290 Nicotine dependence, other tobacco product, uncomplicated; Z98.890 Other specified postprocedural states
CPT/HCPCS: 37609; 88305; J0131; J0690; J1100; J2003; J2405; J2704; J2795; J3010

== ENCOUNTER → 2025-02-19 05:53 | Outpatient (BNV) | payer BC, SELFPAY | PROVIDERS: Visit Provider Surgery Vascular Surgery | DX: R51.9 Headache, unspecified (principal) | CPT/HCPCS: 37609 ==

== ENCOUNTER 2025-02-26 13:37 | Outpatient (REF) | payer BC, SELFPAY ==
[2025-02-26 17:39] LABS: MANUAL DIFF FLAG NO
[2025-02-26 17:46] LABS: Hematocrit 41.6 % (42.0-52.0); Hemoglobin 14.3 g/dl (14.0-18.0); Imm Gran Abs Auto 0.03 X10*3/uL (0.00-0.03); Imm Gran Pct Auto 0.4 % (0.0-0.4); Lymphocytes Absolute Auto 1.6 X10*3/uL (1.2-4.9); Mean Corpuscular HGB Conc 34.4 g/dl (31.0-36.0); Mean Corpuscular Hemoglobin 32.8 pg (27.0-33.0); Mean Corpuscular Volume 95.4 fL (80.0-98.0); NRBC Abs Auto 0.000 X10*3/uL (0.0-0.012); NRBC Pct Auto 0.0 /100WBC (0.0-0.2); Platelet Count 212 X10*3/uL (160-400); Red Blood Count 4.36 X10*6/uL (4.60-5.80); White Blood Count 6.9 X10*3/uL (4.8-10.8)
[2025-02-26 18:01] LABS: Aspartate Amino Transferase 19 U/L (5-37); Estimated Glomerular Filt Rate > 60
== END 2025-02-26 13:38 | disposition home or self-care (01) ==
LOC: HO.HKASLDS 13:37
PROVIDERS: Visit Provider Internal Medicine Rheumatology
DX: M31.6 Other giant cell arteritis (principal); R29.898 Other symptoms and signs involving the musculoskeletal system; G89.29 Other chronic pain; M25.511 Pain in right shoulder; M25.512 Pain in left shoulder; M35.3 Polymyalgia rheumatica; Z79.631 Long term (current) use of antimetabolite agent
CPT/HCPCS: 36415; 82085; 82550; 82565; 84450; 85025; 85652; 86140

== ENCOUNTER 2025-02-26 13:37 | Outpatient (AMB) | payer BC, SELFPAY ==
--- OUTSIDE RECORDS SUMMARY | 2025-02-12 06:50 | XMS_ITS ---
Author Organization [facility] Address [address] [place] [address] Care Team Providers Care Spanish Speaking Nanny Name Role Phone YUNIER HEATON Primary Care Provider Scotty Hoang [phone] Allergies No Known Allergies REASON FOR VISIT Patient presents today for a heme positive stool cards Problems Problem Type SNOMED Code ICD Code Onset Dates Problem Status W/U Status Risk Notes Problem Dysphagia (87309424) Dysphagia (R13.10) Active confirmed Problem Gastroesophageal reflux disease (050793111) GERD (gastroesopha geal reflux disease) (K21.9) Active confirmed Problem Colon cancer screening (776505906) Colon cancer screening (Z12.11) Active confirmed Problem Abnormal feces (487495582) Heme + stool (R19.5) Active confirmed Vital Signs Blood pressure systolic 111 mm Hg 02/13/20 25 Blood pressure diastolic 77 mm Hg 025 Height 72 in 02/12/2025 Weight 208 lbs 02/12/2025 BMI 28.21 kg/m2 02/12/2025 Procedures Procedure Date Ordered Date Performed Result Body Sit e UPPER GI ENDOSCOPY BALLOOON DILATION OF ESOPH 02/12/2025 N/A COLONOSCOPY 02/12/2025 N/A Encounters Encounter Location Date Provider Diagnosis [facility] [address] [place] [phone] 02/12/2025 Scotty Jean Dysphagia R13.10 ; GERD (gastroesophageal reflux disease) K21.9 ; Colon cancer screening Z12.11 and Heme + stool R19.5 Assessments Encounter Date Diagnosis (ICD Code) Assessment Notes Treatment Notes Treatment Clinical Notes Section Notes 02/12/2025 Dysphagia (ICD-10 - R13.10) Overall, Nicanor appears well. I did recommend a colonoscopy for evaluation of the heme positive stool as well as for colorectal cancer screening given that his last exam was back in July 2015. We did review the rationale for this in regard to colorectal cancer prevention and/or early detection. He is not having any worrisome symptoms in that regard but I did recommend we do the colonoscopy sooner rather than later given the finding of the heme positive stool. However, he wants to wait until the early part of 2015 due to some things going on at his job. I did advise him to certainly let me know if he has any change in his bowels or any obvious bleeding and we could proceed sooner if need be. I also recommended a follow-up upper endoscopy given the previous history of esophagitis and some occasional dysphagia. We did review the need to rule out any type of esophageal stricture and need for balloon dilation. Full consent has been attained for that as well, including risks of bleeding and perforation. He is not having any symptoms of reflux at this time and I we will hold off on giving him any medication. However, if he is found to have some esophagitis like he did in 2016 then I would definitely want to start him back on a PPI at that time. Full consent has been obtained from him for both procedures, including risks of bleeding and perforation. The procedures will be done with monitored anesthesia care. Nicanor was comfortable with this plan. Thank you again for allowing me to participate in Nicanor's care. I shall continue to keep you advised of his progress. 02/12/2025 GERD (gastroesophag eal reflux disease) (ICD-10 - K21.9) Overall, Nicanor appears well. I did recommend a colonoscopy for evaluation of the heme positive stool as well as for colorectal cancer screening given that his last exam was back in July 2015. We did review the rationale for this in regard to colorectal cancer prevention and/or early detection. He is not having any worrisome symptoms in that regard but I did recommend we do the colonoscopy sooner rather than later given the finding of the heme positive stool. However, he wants to wait until the early part of 2015 due to some things going on at his job. I did advise him to certainly let me know if he has any change in his bowels or any obvious bleeding and we could proceed sooner if need be. I also recommended a follow-up upper endoscopy given the previous history of esophagitis and some occasional dysphagia. We did review the need to rule out any type of esophageal stricture and need for balloon dilation. Full consent has been attained for that as well, including risks of bleeding and perforation. He is not having any symptoms of reflux at this time and I we will hold off on giving him any medication. However, if he is found to have some esophagitis like he did in 2016 then I would definitely want to start him back on a PPI at that time. Full consent has been obtained from him for both procedures, including risks of bleeding and perforation. The procedures will be done with monitored anesthesia care. Nicanor was comfortable with this plan. Thank you again for allowing me to participate in Nicanor's care. I shall continue to keep you advised of his progress. 02/12/2025 Colon cancer screening (ICD-10 - Z12.11) Overall, Nicanor appears well. I did recommend a colonoscopy for evaluation of the heme positive stool as well as for colorectal cancer screening given that his last exam was back in July 2015. We did review the rationale for this in regard to colorectal cancer prevention and/or early detection. He is not having any worrisome symptoms in that regard but I did recommend we do the colonoscopy sooner rather than later given the finding of the heme positive stool. However, he wants to wait until the early part of 2015 due to some things going on at his job. I did advise him to certainly let me know if he has any change in his bowels or any obvious bleeding and we could proceed sooner if need be. I also recommended a follow-up upper endoscopy given the previous history of esophagitis and some occasional dysphagia. We did review the need to rule out any type of esophageal stricture and need for balloon dilation. Full consent has been attained for that as well, including risks of bleeding and perforation. He is not having any symptoms of reflux at this time and I we will hold off on giving him any medication. However, if he is found to have some esophagitis like he did in 2016 then I would definitely want to start him back on a PPI at that time. Full consent has been obtained from him for both procedures, including risks of bleeding and perforation. The procedures will be done with monitored anesthesia care. Nicanor was comfortable with this plan. Thank you again for allowing me to participate in Nicanor's care. I shall continue to keep you advised of his progress. 02/12/2025 Heme + stool (ICD-10 - R19.5) Overall, Nicanor appears well. I did recommend a colonoscopy for evaluation of the heme positive stool as well as for colorectal cancer screening given that his last exam was back in July 2015. We did review the rationale for this in regard to colorectal cancer prevention and/or early detection. He is not having any worrisome symptoms in that regard but I did recommend we do the colonoscopy sooner rather than later given the finding of the heme positive stool. However, he wants to wait until the early part of 2015 due to some things going on at his job. I did advise him to certainly let me know if he has any change in his bowels or any obvious bleeding and we could proceed sooner if need be. I also recommended a follow-up upper endoscopy given the previous history of esophagitis and some occasional dysphagia. We did review the need to rule out any type of esophageal stricture and need for balloon dilation. Full consent has been attained for that as well, including risks of bleeding and perforation. He is not having any symptoms of reflux at this time and I we will hold off on giving him any medication. However, if he is found to have some esophagitis like he did in 2016 then I would definitely want to start him back on a PPI at that time. Full consent has been obtained from him for both procedures, including risks of bleeding and perforation. The procedures will be done with monitored anesthesia care. Nicanor was comfortable with this plan. Thank you again for allowing me to participate in Nicanor's care. I shall continue to keep you advised of his progress. Plan Of Treatment Pending Test Test Name Order Date UPPER GI ENDOSCOPY BALLOOON DILATION OF ESOPH 02/12/2025 COLONOSCOPY 02/12/2025 Progress Notes * NICANOR MCNAIR CDOB: [birth year] (64 yo M)Acc No.[id number]:02/12/2025 Progress Notes Patient: NICANOR MARCIAL Provider: Jose Ramon Jean MD :1960 A ge:64 Y S ex:Male Date:02/12/2025 Address:[address] [place] [address] [id number] Pcp:YUNIER HEATON Subjective: * Chief Complaints: * 1 . Patient presents today for a heme positive stool cards. * HPI: i ncontinence: I saw Nicanor in consultation today in regard to further evaluation of his history of gastroesophageal reflux with esophagitis, occasional dysphagia, need for colorectal cancer screening, and the finding of heme positive stool. I last saw Nicanor in July 2015, at which time he underwent a screening colonoscopy that was negative for any polyps. He also underwent an upper endoscopy on that day for evaluation of reflux which revealed some erosive esophagitis and a small hiatal hernia, but no evidence of Saeed's esophagus. At that time he was started on omeprazole. He describes that he took that for a while but eventually came off of it and has been doing well without it in regard to reflux symptoms. He denies any significant heartburn. However he does have rare episodes of dysphagia to things like bread in which he will have to regurgitate. However, he describes if these episodes are very infrequent and he generally eats everything he wants without any limitation nor needing to cut it up in small pieces. He enjoys a good appetite and denies any early satiety, nausea, or vomiting. He reports that his bowel movements have been regular and without any hematochezia nor melena. He denies any known family history of colorectal cancer. He denies any abdominal pain, jaundice, nor any unintentional weight loss. He was found to have heme positive stool during his physical exam back in October with Dr. Mclain. He did have a normal CBC with a hemoglobin of 14.8 toward the end of last month. * Medical History: D enies [place],DM,CVA,Lung disease,renal disease, GERD--upper GI series in October of 2014 describes a small hiatal hernia, reflux, thickening of distal esophageal folds, and mild narrowing of the distal esophagus, PMR and Giant Cell Arteritis--sees [facility] Rheumatology Dr. Brown--going to start prednisone and Actemra injections as of the 02/2025 OV, Negative colonoscopy in 07/2015, EGD 07/2015 with erosive esophagitis--no Seaed's, small hiatal hernia. * Surgical History: R ight knee surgeriesX5 , Left 4th finger . * Family History: F ather: , diagnosed with HTN (hypertension), Diabetes. M other: . S iblings: sister, diagnosed with Diabetes. No known hx of colon cancer, polyps, or liver disease. BROTHER RENAL CANCER. * Social History: T obacco Use: T obacco Use/Smoking A re you a: nonsmoker. D rugs/Alcohol: A lcohol Screen P oints: 2, Interpretation: Negative. Jose mayberry: Jose arital status: . Occupation: 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 N onsmoker; 1 drink per night, except for Tuesday- a few beers. * Medications: D iscontinued Prilosec as needed , Notes to Pharmacist: just a few times a month, Discontinued MoviPrep 100 GM Solution as directed Orally as directed , Medication List reviewed and reconciled with the patient * Allergies: N .K.D.A. Objective: * Vitals: W t:208lbs, Ht: 72 in, BMI:28.21Index, BP:111/77mm Hg, Wt-k.35. Assessment: * Assessment: 1. D ysphagia - R13.10 (Primary) 2 . G ERD (gastroesophageal reflux disease) - K21.9 3 . C olon cancer screening - Z12.11 4 . H tien + stool - R19.5 Overall, Nicanor appears well. I did recommend a colonoscopy for evaluation of the heme positive stool as well as for colorectal cancer screening given that his last exam was back in July 2015. We did review the rationale for this in regard to colorectal cancer prevention and/or early detection. He is not having any worrisome symptoms in that regard but I did recommend we do the colonoscopy sooner rather than later given the finding of the heme positive stool. However, he wants to wait until the early part of 2016 due to some things going on at his job. I did advise him to certainly let me know if he has any change in his bowels or any obvious bleeding and we could proceed sooner if need be. I also recommended a follow-up upper endoscopy given the previous history of esophagitis and some occasional dysphagia. We did review the need to rule out any type of esophageal stricture and need for balloon dilation. Full consent has been attained for that as well, including risks of bleeding and perforation. He is not having any symptoms of reflux at this time and I we will hold off on giving him any medication. However, if he is found to have some esophagitis like he did in 2016 then I would definitely want to start him back on a PPI at that time. Full consent has been obtained from him for both procedures, including risks of bleeding and perforation. The procedures will be done with monitored anesthesia care. Nicanor was comfortable with this plan. Thank you again for allowing me to participate in Nicanor's care. I shall continue to keep you advised of his progress. Plan: * Treatment: 2.?GERD (gastroesophageal reflux disease)?Procedure: UPPER GI ENDOSCOPY BALLOOON DILATION OF ESOPH* with LUANColonTiffany 2024 11:46:13 AM EDT > to be done in Jun 2025 per raul Marx 3.?Colon cancer screening?Procedure: COLONOSCOPY* with MACCoTiffany bose 2024 11:46:31 AM EDT > to be booked in Jun 2025 per raul Marx * Procedure Codes: 4 3219 ESOPHAGUS ENDOSCOPY, [address] DIAGNOSTIC COLONOSCOPY * Preventive Medicine: Counseling: C are goal follow-up plan: A juan francisco Normal BMI Follow-up G iving encouragement to exercise, B AR management provided Y es. * * The named appointment provid er may or may not be the originator of this progress note, and it is not deemed complete until electronically signed by the appointment provider. Sign off status: Pending * Provider: Jose Ramon Jean MD Date: 02/12/2025 Generated for Topher ramirez/Seble/Marybelitting on: 02/26/2025 05:32 PM EDT History and Physical Notes * HPI (History of Present Illness) Category Sub-Category Detail Notes Category Not es incontinence I saw Nicanor in consultation today in regard to further evaluation of his history of gastroesophageal reflux with esophagitis, occasional dysphagia, need for colorectal cancer screening, and the finding of heme positive stool. I last saw Nicanor in July 2015, at which time he underwent a screening colonoscopy that was negative for any polyps. He also underwent an upper endoscopy on that day for evaluation of reflux which revealed some erosive esophagitis and a small hiatal hernia, but no evidence of Saeed's esophagus. At that time he was started on omeprazole. He describes that he took that for a while but eventually came off of it and has been doing well without it in regard to reflux symptoms. He denies any significant heartburn. However he does have rare episodes of dysphagia to things like bread in which he will have to regurgitate. However, he describes if these episodes are very infrequent and he generally eats everything he wants without any limitation nor needing to cut it up in small pieces. He enjoys a good appetite and denies any early satiety, nausea, or vomiting. He reports that his bowel movements have been regular and without any hematochezia nor melena. He denies any known family history of colorectal cancer. He denies any abdominal pain, jaundice, nor any unintentional weight loss. He was found to have heme positive stool during his physical exam back in October with Dr. Mclain. He did have a normal CBC with a hemoglobin of 14.8 toward the end of last month.
--- NOTE | 2025-02-26 13:39 | A.OFFVIS_ITS ---
Vital Signs 02/26/25 13:44 Height 5 ft 10 in Weight 212 lb 4.882 oz BMI 30.5 BP 110/70 Blood Pressure Location Rt brachial Position Sitting Pulse 71 Pulse Source Pulse Oximeter Pulse Oximetry (%) 99 Oxygen Delivery Method Room Air Intake Visit Reasons: discuss next steps Intake Note: Patient presents today for a pmr follow up and to discuss next steps. Allergies diesel exhaust Allergy (Mild, Uncoded 02/19/25 06:08) Migraine HPI HPI discuss next steps: Details: He is accompanied with his . Headache occurs for about 5-10 minutes then self resolved. He may have a day without headache or another day with a few headaches a day. He has not self medicating. Heavy arms are present in the morning. Hard to get his arms up. Improves throughout the day. He is able to perform better at work by the end of the day. 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 Rest exacerbates his symptoms. It gets better with movement. Scalp pain in the morning when combing hair. Denies joint stiffness. Left jaw pain with yawning not chewing. Denies vision changes. His mother had giant cell arteritis who presented with waking up without vision in 1 eye. She was diagnosed with blindness on presentation. [facility] Medical History (Updated 02/26/25 @ 22:13 by Kuldip Brown MD) History of giant cell arteritis Polymyalgia rheumatica Temporal arteritis GERD (gastroesophageal reflux disease) HLD (hyperlipidemia) Depression Migraine Vitamin D deficiency Osteopenia Adrenocortical insufficiency Surgical History (Updated 02/19/25 @ 06:08 by Marine Perdomo RN) History of temporal artery biopsy H/O knee surgery Hx of bilateral cataract extraction History of hand surgery Family History Father T2DM (type 2 diabetes mellitus) CVA (cerebral vascular accident) Brother Renal cancer Social History Are you a primary home care attendant to a significant other at home: No Do you presently have visiting nurse or other home services: No Alcohol intake: current Comment: counts correct Patient Tobacco Use Status: Current someday Tobacco user Tobacco use type: Cigar Second Hand Smoke Exposure: No Current occupational status: employed 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 Good respiratory effort Skin: No lesions seen MSK: No temporal tenderness. Left temporal artery incision site is healing well. No tender joints. Normal range of motion of upper extremities and lower extremities. He has pain with abduction of his shoulders. Power shoulder abductors, extensors, elbow flexors and extensors and hand flexors and extensors 3/5. Lower extremity power hip flexors, knee extensors and flexors 3/5. Hip extensors 4/5 and ankle flexors and extensors 5/5. Vascular: +2 radial pulses bilateral. Unable to obtain temporal pulses bilaterally. Assessment & Plan Assessment & Plan (1) Giant cell arteritis: Comment: Concern for GCA and PMR relapse but inflammatory markers are mildly elevated comparable to past inflammatory markers in [facility]. Left temporal artery biopsy did not reveal changes suggestive of GCA. He continues to have cranial GCA symptoms with intermittent temporal headache, daily scalp tenderness, shoulder/biceps and hip girdle pain with weakness. Further investigation of GCA and PMR is warranted with PET scan as it will size changer with the initiation of prednisone and reinstitution of Actemra. His mother had giant cell arteritis presenting with acute blindness on presentation. PET scan will aid with diagnosis as it can review large vessel vasculitis confirming diagnosis of giant cell arteritis contributing to his symptoms. It is imperative that we move ahead with further diagnostic evaluation for giant cell arteritis because if it is left untreated it may result in devastating outcome of irreversible blindness impacting his quality of life, functionality, leading to disability. Rheumatology history: He was diagnosed with PMR 2016 and started on prednisone with modest response. He developed headaches February 2017 and was diagnosed with presumed GCA. He had positive ultrasound of the temporal artery done in [place]. He was started on prednisone 80 mg daily. Methotrexate was ineffective in controlling inflammatory markers. Actemra was added in September of 2018 and was able to taper off of prednisone. Actemra was discontinued February 2019. He had a right temporal artery biopsy in [place] after being on treatment for at least 2 years but it was negative. Left temporal artery biopsy negative 02/2025 for GCA in setting of recurrent intermittent temporal headaches, scalp tenderness, jaw pain with yawning, shoulder/hip girdle symptoms suggestive of PMR relapse. Inflammatory markers mildly elevated. Code(s): M31.6 - Other giant cell arteritis Category: Medical Plan: PET scan ordered Inflammatory markers ordered I will hold off on prescribing prednisone at this time. He will call office if symptoms progress. Return to clinic in 2 months or sooner if needed (2) Bilateral shoulder pain: Comment: With soreness of his biceps and muscle fatigue worse in the morning. Differential diagnosis includes polymyalgia rheumatica, combination of glenohumeral joint osteoarthritis and rotator cuff tendinopathy. Can also consider myositis due to symmetrical bilateral upper and lower extremity weakness. Code(s): M25.511 - Pain in right shoulder; M25.512 - Pain in left shoulder Category: Medical Qualifiers: Chronicity: chronic Qualified Code(s): M25.511 - Pain in right shoulder; M25.512 - Pain in left shoulder; G89.29 - Other chronic pain Plan: X-ray bilateral shoulders ordered Inflammatory markers, CK and aldolase ordered EMG left upper and lower extremity to evaluate for myositis PT ordered to improve upper extremity and lower extremity strength Return to clinic in 3 months (3) Weakness of both upper extremities: Code(s): R29.898 - Other symptoms and signs involving the musculoskeletal system Category: Medical Plan: See above (4) Weakness of both lower extremities: Code(s): R29.898 - Other symptoms and signs involving the musculoskeletal system Category: Medical Plan: See above (5) Polymyalgia rheumatica: Code(s): M35.3 - Polymyalgia rheumatica Category: Medical Plan: See above Orders: Orders NE nerve conduction velocity Today R29.898 - Other symptoms and signs involving the musculoskeletal system NE electromyogram (EMG) Today R29.898 - Other symptoms and signs involving the musculoskeletal system Creatine Kinase Total Today R29.898 - Other symptoms and signs involving the musculoskeletal system XR Shoulder Mere min 2V Today R29.898 - Other symptoms and signs involving the musculoskeletal system PET SUBTLE Whole Body [id number] Today M31.6 - Other giant cell arteritis, M35.3 - Polymyalgia rheumatica PT Evaluation and Treatment Today M25.511 - Pain in right shoulder, M25.512 - Pain in left shoulder, M35.3 - Polymyalgia rheumatica Erythrocyte Sedimentation Rate Today R29.898 - Other symptoms and signs involving the musculoskeletal system, Z79.899 - Other nuclear supervising operator (current) drug therapy C Reactive Protein Today R29.898 - Other symptoms and signs involving the musculoskeletal system, Z79.899 - Other assisted (current) drug therapy Complete Blood Count Auto Diff Today R29.898 - Other symptoms and signs involving the musculoskeletal system Creatinine Today R29.898 - Other symptoms and signs involving the musculoskeletal system Aspartate Amino Transferase Today R29.898 - Other symptoms and signs involving the musculoskeletal system Aldolase Today R29.898 - Other symptoms and signs involving the musculoskeletal system XR hips MERE min 3V Today M25.511 - Pain in right shoulder, M25.512 - Pain in left shoulder, R29.898 - Other symptoms and signs involving the musculoskeletal system Coding Level of Care Code Est Pt Level 4 (13768) Complex EM visit Add On G2211 Diagnoses Giant cell arteritis M31.6 Chronic pain of both shoulders M25.511; M25.512; G89.29 Chronicity: chronic Weakness of both upper extremities R29.898 Weakness of both lower extremities R29.898 Polymyalgia rheumatica M35.3
[2025-02-26 13:44] VITALS: BP 110/70; PULSE 71; O2SAT 99; BMI 30.5
--- OUTSIDE RECORDS SUMMARY | 2025-02-26 17:33 | XMS_ITS | Encounter Summary ---
Author Organization [facility] Address [address] [facility] [address] [place] [address] Phone Care Team Providers Care Wireless Internet Installer Name Role Phone Timur Mclain MD Primary Care Provider [phone]- [phone] Encounter Details Date Type Department Care Team (Late st Contact Info) Description 02/01/2019 Procedure Pass [facility] [address] [address] Social History Tobacco Use Types Packs/Day Years [...] on filedocumented in this encounter Care Teams Wireless Internet Installer Relationship Specialty Start Date End Date Timur Mclain MD [address] [place] [id number] PCP - General Internal Medicine 11/13/18 documented as of this encounter Additional Source Comments The information contained in this document represents components of the legal health record. It is not the complete legal health record.[facility]
--- OUTSIDE RECORDS SUMMARY | 2025-02-26 17:33 | XMS_ITS | Clinical Summary ---
Author Organization [facility] Address [address] [place] [address] Phone Care Team Providers Care Dyehouse Worker Name Role Phone Timur Mclain MD Primary Care Provider [phone]- [phone] Allergies No known active allergies Medications omeprazole (PRILOSEC) 20 MG capsule 11 11/24/2018 Active predniSONE (DELTASONE) 20 MG tablet Take 40 mg by mouth daily. 2 10/23/2018 Active ACTEMRA 162 mg/0.9 mL subcutaneous injection syringe 11/30/2018 A ctive Ca cit-D3-mag#11-zin v-fkff-kyn-bor (CALTRATE 600+D) 600 mg calcium- 800 unit-50 [...] Insurance PPO EPO PPO [place] [address] [place] [address] [address] [place] [address] [place] [address] [place] [address] [place] [address] PPO EPO PPO EPO PPO EPO Care Teams Dyehouse Worker Relationship Specialty Start Date End Date Timur Mclain MD [address] [place] [id number] PCP - General Internal Medicine 11/13/18 Additional Source Comments The information contained in this document represents components of the legal health record. It is not the complete legal health record.[facility]
--- OUTSIDE RECORDS SUMMARY | 2025-02-26 17:33 | XMS_ITS | Patient Health Record ---
Author Organization [facility] Address [address] [place] [address] Care Team Providers Care Conductor Yard Name Role Phone YUNIER HEATON Primary Care Provider Scotty Hoang [phone] Allergies No Known Allergies Reason For Referral No Information Problems Problem Type SNOMED Code ICD Code Onset Dates Problem Status W/U Status Risk Notes Problem Colon cancer screening (624030013) Colon cancer screening (Z12.11) Active confirmed Problem 597387982 Gastro-esophag eal reflux disease without esophagitis (K21.9) Active confirmed Problem 287447361 Encounter for screening for malignant neoplasm of colon (Z12.11) Active confirmed Problem Screening for malignant neoplasm of rectum (740818906) Encounter for screening for malignant neoplasm of rectum (Z12.12) Active confirmed Problem Dysphagia (59189129) Dysphagia (R13.10) Active confirmed Problem Abnormal feces (103942482) Heme + stool (R19.5) Active confirmed Problem Gastroesophageal reflux disease (969633106) GERD (gastroesophag eal reflux disease) (K21.9) Active [...] N/A Encounters Encounter Location Date Provider Diagnosis [facility] [address] [place] [address] 02/12/2025 Scotty Jean Dysphagia R13.10 ; GERD [...] Insured Coverage Start Date Coverage End Date [facility] [address] [place] [address] [phone] [id number] 00 NICANOR MCNAIR Self - patient is the insured Medical (General) History Medical History History ICD Code Denies [place],DM,CVA,Lung disease,renal dise ase GERD--upper GI series in October of 2014 describes a small hiatal hernia, reflux, thickening of distal esophageal folds, and mild narrowing of the distal esophagus PMR and Giant Cell Arteritis --sees [facility] Rheumatology Dr. Brown--going to start prednisone and Actemra injections as of the 02/2025 OV Negative colonoscopy in 07/2015 EGD 07/2015 with erosive esophagitis--no Saeed's, small hiatal hernia Surgical History Surgery Date(Month/Year) Left 4th finger Right knee surgeriesX5
== END 2025-02-26 14:25 | disposition home or self-care (01) ==
LOC: HO.RHES 13:38
PROVIDERS: Visit Provider Internal Medicine Rheumatology
DX: M31.6 Other giant cell arteritis (principal); M25.511 Pain in right shoulder; M25.512 Pain in left shoulder; G89.29 Other chronic pain; R29.898 Other symptoms and signs involving the musculoskeletal system; M35.3 Polymyalgia rheumatica
CPT/HCPCS: 99214

== ENCOUNTER 2025-02-26 15:08 | Outpatient (REF) | payer BC, SELFPAY ==
--- NOTE | ~2025-02-26 | XR_ITS ---
Exam: Three-view bilateral shoulder x-ray TECHNIQUE: AP, scapular Y, and Grashey view of each shoulder INDICATION: Shoulder pain Prior: None FINDINGS: Right shoulder: AC joint is intact and not degenerated. Glenohumeral joint is dislocated. Small marginal osteophytes are visible involving glenoid and also humeral head. Faint linear calcification arcs medially from the greater tuberosity in the soft tissues. Left shoulder: AC joint is intact. There is no dislocation. Marginal osteophytes are visible involving inferior glenoid. There is very faint calcific density in the soft tissues cephalad to the greater tuberosity on the Grashey view. XR/XR Shoulder Mo min 2V IMPRESSION: Mild degenerative changes of both shoulder joints. Subtle soft tissue calcifications possibly related to calcific tendinitis involving bilateral rotator cuff tendons, probably supraspinatus, which may or may not be clinically relevant/symptomatic. Electronically signed by: Juan Philip MD 02/26/2025 03:45 PM EDT
--- NOTE | ~2025-02-26 | XR_ITS ---
EXAMINATION: XR BILATERAL HIPS WITH AP PELVIS CLINICAL INFORMATION: Pain COMPARISON: None available. TECHNIQUE: AP and frog-leg views of each hip were obtained. FINDINGS: Right hip joint space is preserved. There is a small acetabular roof osteophyte. There is faint calcific density cephalad to the greater trochanter. Left hip: Hip joint space is preserved. Minute marginal osteophytes are evident in the left femoral head. XR/XR hips MERE min 3V IMPRESSION: Right hip joint shows possible subtle calcific tendinitis involving a gluteal tendon. There are very mild degenerative changes of both hip joints. Electronically signed by: Juan Philip MD 02/26/2025 03:40 PM EDT RP
== END 2025-02-26 15:09 | disposition home or self-care (01) ==
LOC: HO.HMGCX 15:08
PROVIDERS: PCP Physician Assistant Medical; Visit Provider Internal Medicine Rheumatology
DX: R29.898 Other symptoms and signs involving the musculoskeletal system (principal); M25.511 Pain in right shoulder; M25.512 Pain in left shoulder
CPT/HCPCS: 73030; 73522

== ENCOUNTER → 2025-02-26 15:12 | Outpatient (BNV) | payer BC, SELFPAY | PROVIDERS: PCP Physician Assistant Medical; Visit Provider Radiology Diagnostic Radiology | DX: M76.01 Gluteal tendinitis, right hip (principal); M75.31 Calcific tendinitis of right shoulder; M75.32 Calcific tendinitis of left shoulder | CPT/HCPCS: 73030; 73522 ==

== ENCOUNTER 2025-03-14 14:11 | Outpatient (REF) | payer BC, SELFPAY ==
--- NOTE | 2025-03-14 14:18 | EMG_ITS ---
Chief complaint: Proximal upper and lower extremity weakness, denies pain or numbness. History of polymyalgia rheumatica and giant cell arteritis. Reason for referral: Evaluate for myopathy Referred by: Dr. Brown Procedure done: Left upper extremity and left lower extremity NCS/EMG Precautions and/or limitations: None The limb temperature was monitored continuously and remained between 32-36 degrees C during the performance of the NCS. Nerve Conduction Studies Anti Sensory Summary Table ?Stim Site NR Onset (ms) Norm Onset (ms) Peak (ms) Norm Peak (ms) O-P Amp (?V) Norm O-P Amp Site1 Site2 Delta-0 (ms) Dist (cm) Jann (m/s) Norm Jann (m/s) Left Median Anti Sensory (2nd Digit) Wrist ? 2.4 3.0 <3.6 34.8 >10 Wrist 2nd Digit 2.4 14.0 58 Left Radial Anti Sensory (Thumb) Forearm ? 1.6 2.2 <3.1 25.2 Forearm Thumb 1.6 0.0 Left Sural Anti Sensory (Lat Mall) Calf ? 3.2 3.8 <4.0 10.7 >5.0 Calf Lat Mall 3.2 14.0 44 Left Ulnar Anti Sensory (5th Digit) Wrist ? 2.3 2.9 <3.7 16.3 >15.0 Wrist 5th Digit 2.3 14.0 61 Motor Summary Table ?Stim Site NR Onset (ms) Norm Onset (ms) O-P Amp (mV) Norm O-P Amp iAmp (mV) Amp (1st) (%) Site1 Site2 Delta-0 (ms) Dist (cm) Jann (m/s) Norm Jann (m/s) Left Median Motor (Abd Poll Brev) Wrist ? 3.6 <3.9 7.7 >4.5 8.9 100.0 Elbow Wrist 4.2 21.5 51 >45 Elbow ? 7.8 7.6 8.8 98.7 Left Peroneal Motor (Ext Dig Brev) Ankle ? 3.9 <4.0 6.6 >2.5 8.9 100.0 Ankle Ext Dig Brev 3.9 0.0 B Fib ? 12.1 5.9 7.3 89.4 B Fib Ankle 8.2 35.0 43 >40 Poplt ? 12.7 6.2 7.7 93.9 Poplt B Fib 0.6 4.5 75 >40 Left Tibial Motor (Abd Maldonado Brev) Ankle ? 3.6 <5 8.3 >2.5 10.7 100.0 Ankle Abd Maldonado Brev 3.6 0.0 Knee ? 13.6 3.4 4.7 41.0 Knee Ankle 10.0 44.0 44 >40 Left Ulnar Motor (Abd Dig Minimi) Wrist ? 2.4 <3.0 6.4 >5 7.2 100.0 B Elbow Wrist 3.8 20.0 53 >45 B Elbow ? 6.2 6.0 7.0 93.8 A Elbow B Elbow 1.8 10.0 56 >45 A Elbow ? 8.0 5.7 6.7 89.1 EMG ?Side Muscle Nerve Root Ins Act Fibs Psw Amp Dur Poly Recrt Int Pat Comment Left 1stDorInt Ulnar C8-T1 Nml Nml Nml Nml Nml 0 Nml Complete Left FlexCarRad Median C6-7 Nml Nml Nml Nml Nml 0 Nml Complete Left FlexCarpiUln Ulnar C8,T1 Nml Nml Nml Nml Nml 0 Nml Complete Left Biceps Musculocut C5-6 Nml Nml Nml Nml Nml 0 Nml Complete Left Triceps Radial C6-7-8 Nml Nml Nml Nml Nml 0 Nml Complete Left Deltoid Axillary C5-6 Nml Nml Nml Nml Nml 0 Nml Complete Left AbdHallucis MedPlantar S1-2 Nml Nml Nml Nml Nml 0 Nml Complete Left AntTibialis Dp Br Peron L4-5 Nml Nml Nml Nml Nml 0 Nml Complete Left PostTibialis Tibial L5, S1 Nml Nml Nml Nml Nml 0 Nml Complete Left MedGastroc Tibial S1-2 Nml Nml Nml Nml Nml 0 Nml Complete Left VastusMed Femoral L2-4 Nml Nml Nml Nml Nml 0 Nml Complete Paraspinal EMG ?Side Muscle Nerve Root Ins Act Fibs Psw Comment Left Cervical Upper Rami Nml Nml Nml Left Cervical Mid Rami Nml Nml Nml Left Cervical Lower Rami Nml Nml Nml Left Lumbar Upper Rami Nml Nml Nml Left Lumbar Mid Rami Nml Nml Nml Left Lumbar Lower Rami Nml Nml Nml FINDINGS: All motor and sensory nerves tested showed normal latencies, amplitudes and conduction velocities. Concentric needle EMG was performed in selected muscles of the left upper and lower extremities, lumbar paraspinals and cervical paraspinals. Study did not reveal signs of electric abnormalities as shown in the table above. No myopathic looking units. IMPRESSION: 1. This is a normal study. 2. There is no electrodiagnostic evidence for median neuropathy, ulnar neuropathy, brachial plexopathy, cervical radiculopathy, peroneal neuropathy, tibial neuropathy, lumbosacral plexopathy, lumbar radiculopathy, or peripheral neuropathy. Thank you for your kind referral. Deonna Elliott MD, RADHA Board Certified, [place] Board [employer] and Rehabilitation (ABPMR) Board Certified, [place] Board of Electrodiagnostic Medicine (ABEM) CODIN 98649 x 2 MTDD
--- OUTSIDE RECORDS SUMMARY | 2025-03-14 15:49 | XMS_ITS | Clinical Summary ---
Author Organization [facility] Address [address] [place] [address] Phone Care Team Providers Care Assistant Manager/Embalmer Name Role Phone Timur Mclain MD Primary Care Provider +1- [phone] Allergies No known active allergies Medications omeprazole (PRILOSEC) 20 MG capsule 11 11/24/2018 Active predniSONE (DELTASONE) 20 MG tablet Take 40 mg by mouth daily. 2 10/23/2018 Active ACTEMRA 162 mg/0.9 mL subcutaneous injection syringe 11/30/2018 A ctive Ca cit-D3-mag#11-zin h-oydp-rgc-bor (CALTRATE 600+D) 600 mg calcium- 800 unit-50 [...] Insurance PPO EPO PPO EPO [place] [address] [place] [address] [place] [address] [place] [address] [place] [address] [place] [address] [place] [place] [address] PPO EPO PPO EPO PPO EPO Care Teams Assistant Manager/Embalmer Relationship Specialty Start Date End Date Timur Mclain MD [address] [place] [id number] PCP - General Internal Medicine 11/13/18 Additional Source Comments The information contained in this document represents components of the legal health record. It is not the complete legal health record.[facility]
--- OUTSIDE RECORDS SUMMARY | 2025-03-14 15:49 | XMS_ITS | Patient Health Record ---
Author Organization [facility] Address [address] [place] [address] Care Team Providers Care Soot Blower Name Role Phone YUNIER HEATON Primary Care Provider Scotty Hoang [phone] Allergies No Known Allergies Reason For Referral No Information Problems Problem Type SNOMED Code ICD Code Onset Dates Problem Status W/U Status Risk Notes Problem Colon cancer screening (703751863) Colon cancer screening (Z12.11) Active confirmed Problem 911367616 Gastro-esophag eal reflux disease without esophagitis (K21.9) Active confirmed Problem 885288429 Encounter for screening for malignant neoplasm of colon (Z12.11) Active confirmed Problem Screening for malignant neoplasm of rectum (192556850) Encounter for screening for malignant neoplasm of rectum (Z12.12) Active confirmed Problem Dysphagia (79733712) Dysphagia (R13.10) Active confirmed Problem Abnormal feces (029978639) Heme + stool (R19.5) Active confirmed Problem Gastroesophageal reflux disease (115745843) GERD (gastroesophag eal reflux disease) (K21.9) Active [...] N/A Encounters Encounter Location Date Provider Diagnosis [facility] [address] [place] [address] 02/12/2025 Scotty Jean Dysphagia R13.10 ; GERD (gastroesophageal reflux disease) K21.9 ; Colon cancer screening Z12.11 and Heme + stool R19.5 Assessments Encounter Date Diagnosis (ICD Code) Assessment Notes Treatment Notes Treatment Clinical Notes Section Notes 02/12/2025 Dysphagia (ICD-10 - R13.10) Overall, Nicanor appears well. I did recommend a colonoscopy for evaluation of the heme-positive stool as well as for colorectal cancer screening given that his last exam was back in July 2015. We did review the rationale for this in regard to colorectal cancer prevention and/or early detection. He is not having any worrisome symptoms in that regard but I did recommend we do the colonoscopy sooner rather than later given the finding of the heme-positive stool. However, he wants to wait until [...] recommend a colonoscopy for evaluation of the heme-positive stool as well as for colorectal cancer screening given that his last exam was back in July 2015. We did review the rationale for this in regard to colorectal cancer prevention and/or early detection. He is not having any worrisome symptoms in that regard but I did recommend we do the colonoscopy sooner rather than later given the finding of the heme-positive stool. However, he wants to wait until [...] recommend a colonoscopy for evaluation of the heme-positive stool as well as for colorectal cancer screening given that his last exam was back in July 2015. We did review the rationale for this in regard to colorectal cancer prevention and/or early detection. He is not having any worrisome symptoms in that regard but I did recommend we do the colonoscopy sooner rather than later given the finding of the heme-positive stool. However, he wants to wait until [...] recommend a colonoscopy for evaluation of the heme-positive stool as well as for colorectal cancer screening given that his last exam was back in July 2015. We did review the rationale for this in regard to colorectal cancer prevention and/or early detection. He is not having any worrisome symptoms in that regard but I did recommend we do the colonoscopy sooner rather than later given the finding of the heme-positive stool. However, he wants to wait until [...] Insured Coverage Start Date Coverage End Date [facility] [address] [place] [address] [id number] 00 NICANOR MCNAIR Self - patient is the insured Medical (General) History Medical History History ICD Code Denies [place],DM,CVA,Lung disease,renal dise ase GERD--upper GI series in October of 2014 describes a small hiatal hernia, reflux, thickening of distal esophageal folds, and mild narrowing of the distal esophagus PMR and Giant Cell Arteritis --sees [facility] Rheumatology Dr. Brown--going to start prednisone and Actemra injections as of the 02/2025 OV Negative colonoscopy in 07/2015 EGD 07/2015 with erosive esophagitis--no Saeed's, small hiatal hernia Surgical History Surgery Date(Month/Year) Left 4th finger Right knee surgeriesX5
--- OUTSIDE RECORDS SUMMARY | 2025-03-14 15:49 | XMS_ITS | Clinical Summary ---
Author Organization [facility] Address [address] [place] [address] Phone Care Team Providers Care Museum Registrar Name Role Phone Unavailable Primary Care Provider Unavailabl e Social History Tobacco Use Types Packs/Day Years Used Date Smoking Tobacco: Never Assessed Sex and Gender Information Value Date Recorded Sex Assigned at Not on file Legal Sex Male 12:59 PM EST Gender Identity Not on file Sexual Orientation Not on file Plan of Treatment Upcoming Encounters Date Type Department Care Team ([facility] st Contact Info) Description 03/15/2025 2:15 PM EDT Appointment [facility] PET Scan [address] [place] [address] Health Maintenance Due Date Last Done Comments Colorectal Cancer Screening: Colonoscopy 1962 DTaP,Tdap,and Td Vaccines (1 - Tdap) 1981 Pneumococcal Vaccine: 50+ Ye ars (1 of 1 - PCV) 2012 Zoster Vaccines (1 of 2) 2012 Depression Screening 06/13/2024 COVID-19 Vaccine (1 - 2023-2 5 season) 2025 Influenza Vaccine (#1) 2025 Cholesterol Screening (Lipid Panel) 03/14/2025 HIV Screening 03/14/2025 Hepatitis C Screening 03/14/2025 Social Influencers of Health Screening 03/14/2025 RSV Immunization Adult Patie nts (1 - 1-dose 75+ series) 2037 HIB Vaccines Aged Out No longer eligi ble based on patient's age to complete this topic HPV Vaccines Aged Out No longer eligi ble based on patient's age to complete this topic Hepatitis A Vaccines Aged Out No long er eligible based on patient's age to complete this topic Hepatitis B Vaccines Aged Out No long er eligible based on patient's age to complete this topic IPV Vaccines Aged Out No longer eligi ble based on patient's age to complete this topic MMR Vaccines Aged Out No longer eligi ble based on patient's age to complete this topic Meningococcal ACWY Vaccine Aged Out N o longer eligible based on patient's age to complete this topic Meningococcal B Vaccine Aged Out No l onger eligible based on patient's age to complete this topic RSV Immunization Patients Un rae 20 months Aged Out No longer eligible b ased on patient's age to complete this topic Varicella Vaccines Aged Out No longer eligible based on patient's age to complete this topic [place] [address] [place] [address]
--- OUTSIDE RECORDS SUMMARY | 2025-03-14 15:49 | XMS_ITS | Encounter Summary ---
Author Organization [facility] Address [address] [facility] [address] [place] [address] Phone Care Team Providers Care Lead Handler Name Role Phone Timur Mclain MD Primary Care Provider +1- [phone] Encounter Details Date Type Department Care Team (Late st Contact Info) Description 02/01/2019 Procedure Pass [facility]'s [address] [address] Social History Tobacco Use Types Packs/Day Years [...] on filedocumented in this encounter Care Teams Lead Handler Relationship Specialty Start Date End Date Timur Mclain MD [address] [place] [id number] PCP - General Internal Medicine 11/13/18 documented as of this encounter Additional Source Comments The information contained in this document represents components of the legal health record. It is not the complete legal health record.[facility]
== END 2025-03-14 14:12 | disposition home or self-care (01) ==
LOC: HO.NEURO 14:11
PROVIDERS: PCP Physician Assistant Medical; Referring Provider Internal Medicine; Visit Provider Internal Medicine Rheumatology
DX: R29.898 Other symptoms and signs involving the musculoskeletal system (principal); M62.81 Muscle weakness (generalized)
CPT/HCPCS: 95886; 95910

== ENCOUNTER → 2025-03-14 14:18 | Outpatient (BNV) | payer BC, SELFPAY | PROVIDERS: PCP Physician Assistant Medical; Referring Provider Internal Medicine; Visit Provider Physical Medicine & Rehabilitation | DX: R29.898 Other symptoms and signs involving the musculoskeletal system (principal) | CPT/HCPCS: 95886; 95910 ==

== ENCOUNTER 2025-04-17 14:06 | Outpatient (REF) | payer BC, SELFPAY ==
--- OUTSIDE RECORDS SUMMARY | 2025-04-17 17:17 | XMS_ITS | Encounter Summary ---
Author Organization [facility] Address [address] [facility] [facility] [address] [place] [address] Phone Care Team Providers Care Artificial Limb Fitter Name Role Phone Timur Mclain MD Primary Care Provider +1- [phone] Encounter Details Date Type Department Care Team (Late st Contact Info) Description 02/01/2019 Procedure Pass [facility]'s [address] [address] Social History Tobacco Use Types Packs/Day Years [...] on filedocumented in this encounter Care Teams Artificial Limb Fitter Relationship Specialty Start Date End Date Timur Mclain MD [address] [place] [id number] PCP - General Internal Medicine 11/13/18 documented as of this encounter Additional Source Comments The information contained in this document represents components of the legal health record. It is not the complete legal health record.[facility]
--- OUTSIDE RECORDS SUMMARY | 2025-04-17 17:17 | XMS_ITS | Patient Health Record ---
Author Organization [facility] Address [address] [place] [phone] Care Team Providers Care Press Worker Helper Name Role Phone YUNIER HEATON Primary Care Provider Scotty Hoang [phone] Allergies No Known Allergies Reason For Referral No Information Problems Problem Type SNOMED Code ICD Code Onset Dates Problem Status W/U Status Risk Notes Problem Colon cancer screening (865108324) Colon cancer screening (Z12.11) Active confirmed Problem Gastro-esophageal reflux disease without esophagitis (990525129) Gastro-esophag eal reflux disease without esophagitis (K21.9) Active confirmed Problem Screening for malignant neoplasm of colon (557571541) Encounter for screening for malignant neoplasm of colon (Z12.11) Active confirmed Problem Screening for malignant neoplasm of rectum (879579693) Encounter for screening for malignant neoplasm of rectum (Z12.12) Active confirmed Problem Dysphagia (42380678) Dysphagia (R13.10) Active confirmed Problem Abnormal feces (695066017) Heme + stool (R19.5) Active confirmed Problem Gastroesophageal reflux disease (269536543) GERD (gastroesophag eal reflux disease) (K21.9) Active [...] N/A Encounters Encounter Location Date Provider Diagnosis [facility] [address] [place] [phone] 02/12/2025 Scotty Jean Dysphagia R13.10 ; GERD [...] Insured Coverage Start Date Coverage End Date [facility] [address] [place] [address] [id number] NICANOR MCNAIR Self - patient is the insured Medical (General) History Medical History History ICD Code Denies [place],DM,CVA,Lung disease,renal dise ase GERD--upper GI series in October of 2014 describes a small hiatal hernia, reflux, thickening of distal esophageal folds, and mild narrowing of the distal esophagus PMR and Giant Cell Arteritis --sees [facility] Rheumatology Dr. Brown--going to start prednisone and Actemra injections as of the 02/2025 OV Negative colonoscopy in 07/2015 EGD 07/2015 with erosive esophagitis--no Saeed's, small hiatal hernia Surgical History Surgery Date(Month/Year) Left 4th finger Right knee surgeriesX5
--- OUTSIDE RECORDS SUMMARY | 2025-04-17 17:17 | XMS_ITS | Clinical Summary ---
Author Organization [facility] Address [address] [place] [address] Phone Care Team Providers Care Easement Man Name Role Phone Timur Mclain MD Primary Care Provider +1- [phone] Allergies No known active allergies Medications omeprazole (PRILOSEC) 20 MG capsule 11 11/24/2018 Active predniSONE (DELTASONE) 20 MG tablet Take 40 mg by mouth daily. 2 10/23/2018 Active ACTEMRA 162 mg/0.9 mL subcutaneous injection syringe 11/30/2018 A ctive Ca cit-D3-mag#11-zin c-ezag-wim-bor (CALTRATE 600+D) 600 mg calcium- 800 unit-50 [...] FOBT 2007 SIGMOIDOSCOPY 2007 VIRTUAL COLONOSCOPY 2007 RSV VACCINE (1 - Risk 50-74 years 1-dose series) 2012 PNEUMOCOCCAL VACCINES (50+ years) (2 of 2 - PPSV23) 11/08/2018 09/13/2018 COVID-19 VACCINE (3 - Moderna risk series) 11/28/2020 10/31/2020, 10/03/2020 INFLUENZA VACCINE (#1) 2025 0, 04/04/2019, 04/21/2018, [...] Insurance PPO EPO PPO [place]PO [place] [address] [place] [address] [place] [address] [address] [place] [address] [address] [place] [address] [place] [address] [place] [address] PPO EPO PPO EPO PPO EPO Care Teams Easement Man Relationship Specialty Start Date End Date Timur Mclain MD [address] [place] [phone] PCP - General Internal Medicine 11/13/18 Additional Source Comments The information contained in this document represents components of the legal health record. It is not the complete legal health record.[facility]
--- OUTSIDE RECORDS SUMMARY | 2025-04-17 17:17 | XMS_ITS | Clinical Summary ---
Author Organization [facility] Address [address] [place] [address] Phone Care Team Providers Care Warehouse Processor Name Role Phone Unavailable Primary Care Provider Unavailabl e Encounters Date Type Department Care Team Description 03/15/2025 1:22 PM EDT - 03/15/2025 11:59 PM EDT Hospital Encounter [facility] PET Scan [address] [place] [address] Other giant cell arteritis (CMS/HCC V24, CMS/HCC V28); Polymyalgia rheumatica (CMS/HCC V24) Discharge Disposition: Home or Self Care from Last 3 Months Social History Tobacco Use Types Packs/Day Years Used Date Smoking Tobacco: Never Assessed Sex and Gender Information Value Date Recorded Sex Assigned at Not on file Legal Sex Male 12:59 PM EST Gender Identity Not on file Sexual Orientation Not on file Plan of Treatment Health Maintenance Due Date Last Done Comments Colorectal Cancer Screening: Colonoscopy 1962 Zoster Vaccines (1 of 2) 2012 Pneumococcal Vaccine: 50+ Years (2 of 2 - PCV20 or PCV21) 09/14/2019 09/13/2018 Depression Screening 06/13/2024 COVID-19 Vaccine (3 - season) 2025 10/31/2020, 10/03/2020 Influenza Vaccine (#1) 2025 , 04/04/2019, 04/21/2018, Additional history exists Cholesterol Screening (Lipid Panel) 03/14/2025 HIV Screening 03/14/2025 Hepatitis C Screening 03/14/2025 Social Influencers of Health Screening 03/14/2025 DTaP,Tdap,and Td Vaccines (2 - Td or Tdap) 09/12/2034 09/12/2024 RSV Immunization Adult Patients (1 - 1-dose 75+ series) 2037 HIB [...] to complete this topic RSV Immunization Patients Under 20 months Aged Out No longer eligible based on patient's age to complete this topic Varicella Vaccines Aged Out No longer eligible based on patient's age to complete this topic Procedures Procedure Name Priority Date/Time Associated Diagnosis Comments PET CT WHOLE BODY INITIAL Routine 03/15/2025 3:30 PM EDT Other giant cell arteritis ([facility] V24, [facility] V28) Polymyalgia rheumatica ([facility] V24) from Last 3 Months Results * PET CT Whole Body Initial (03/15/2025 3:30 PM EDT) Anatomical Region Laterality Modality Body Radiographic Tameka ging 03/27/2025 2:05 PM EDT Impressions 03/27/2025 2:20 PM EDT No pattern of activity to suggest polymyalgia rheumatica or large vessel vasculitis. -------- FINAL REPORT -------- Dictated By: Alan Guillermo Dictated Date: 03/27/2025 14:05 ET Assigned Physician: Alan Guillermo Reviewed and Electronically Signed By: Alan Guillermo Signed Date: 03/27/2025 14:20 ET Workstation ID: [id number] Transcribed By: Self Edit Transcribed Date: 03/27/2025 14:05 ET Narrative 03/27/2025 2:20 PM EDT INDICATION: Giant cell arteritis, polymyalgia rheumatic, initial treatment strategy Prior relevant studies: None Radiopharmaceutical: 13.2 mCi of F-18 FDG IV. Blood glucose: 139 mg/dl. PROCEDURE: Whole body FDG PET-CT imaging was performed from the top of the skull through the feet in a single acquisition with data set reconstructed in axial, coronal, and sagittal planes at the computer workstation with fused data from both the PET imaging study and attenuation correction CT. The CT portion of the examination was done strictly for attenuation correction and is not a true diagnostic CT examination. CTDI: 7.31 mGy Liver SUV: 4 Thoracic aorta SUV: 2.8 Shoulder SUV: 1.6 on the left and 2.0 on the right FINDINGS: HEAD AND NECK: Mild focal activity in the left temporal region anterior to the anterior echogenicity max of 2.3 likely corresponds to postprocedural change from temporal artery biopsy. THORAX: No abnormal FDG activity. ABDOMEN/PELVIS: No abnormal FDG activity. MUSCULOSKELETAL: No abnormal FDG activity. No abnormal periarticular activity. Mild bilateral wrist activity likely represents degenerative change. No abnormal activity along the lumbar spine. LOWER EXTREMITIES: No abnormal FDG activity. Mild degenerative activity along the right knee. VASCULAR: No increased activity along the thoracic aorta, abdominal aorta, iliac vessels are major branches. Procedure Note Alan Guillermo MD - 03/27/2025 INDICATION: Giant cell arteritis, polymyalgia rheumatic, initial treatmentstrategy Prior relevant studies: None Radiopharmaceutical: 13.2 mCi of F-18 FDG IV. Blood glucose: 139 mg/dl. PROCEDURE: Whole body FDG PET-CT imaging was performed from the top of theskull through the feet in a single acquisition with data set reconstructedin axial, coronal, and sagittal planes at the computer workstation withfused data from both the PET imaging study and attenuation correction CT.The CT portion of the examination was done strictly for attenuationcorrection and is not a true diagnostic CT examination. CTDI: 7.31 mGy Liver SUV: 4 Thoracic aorta SUV: 2.8 Shoulder SUV: 1.6 on the left and 2.0 on the right FINDINGS: HEAD AND NECK: Mild focal activity in the left temporal region anterior tothe anterior echogenicity max of 2.3 likely corresponds to postproceduralchange from temporal artery biopsy. THORAX: No abnormal FDG activity. ABDOMEN/PELVIS: No abnormal FDG activity. MUSCULOSKELETAL: No abnormal FDG activity. No abnormal periarticularactivity. Mild bilateral wrist activity likely represents degenerativechange. No abnormal activity along the lumbar spine. LOWER EXTREMITIES: No abnormal FDG activity. Mild degenerative activityalong the right knee. VASCULAR: No increased activity along the thoracic aorta, abdominal aorta,iliac vessels are major branches. IMPRESSION: No pattern of activity to suggest polymyalgia rheumatica or large vesselvasculitis. -------- FINAL REPORT -------- Dictated By: Alan Guillermo Dictated Date: 03/27/2025 14:05 ET Assigned Physician: Alan Guillermo Reviewed and Electronically Signed By: Alan Guillermo Signed Date: 03/27/2025 14:20 ET Workstation ID: [id number] Transcribed By: Self Edit Transcribed Date: 03/27/2025 14:05 ET us Kuldip Jacki Brown MD IMG [place] PROCEDURES Final R esult from Last [address] [place] [place] [address]
== END 2025-04-17 14:07 | disposition home or self-care (01) ==
LOC: HO.HKASLDS 14:06
PROVIDERS: PCP Physician Assistant Medical; Visit Provider Internal Medicine Rheumatology
DX: Z79.899 Other long term (current) drug therapy (principal)
CPT/HCPCS: 36415; 85652; 86140

== ENCOUNTER 2025-04-24 08:53 | Outpatient (AMB) | payer BC, SELFPAY ==
--- NOTE | 2025-04-24 09:08 | MHC.PC.OV ---
Vital Signs 04/24/25 09:16 Height 5 ft 10.08 in Weight 215 lb BMI 30.8 BP 118/57 L Blood Pressure Location Rt brachial Position Sitting Respiration 14 Pulse 62 Pulse Source Pulse Oximeter Temp 97.9 F Temp Source Temporal Artery Scan Pulse Oximetry (%) 98 Oxygen Delivery Method Room Air Intake Visit Reasons: establish care Registered Medical Transcriptionist Required: No Accompanied by: Spouse Allergies diesel exhaust Allergy (Mild, Uncoded 04/24/25 09:29) Migraine Medication List - Last Reconciled 04/24/25 by Natalie Kaplan PA-C prednisone 60 mg (3 x 20 mg) PO DAILY 7 days prednisone 10 mg PO DIRECTED Tobacco use date assessed: 04/24/25 Dental Screening Dental Screen Date: 04/24/25 Did you have a dental visit in the last 12 months?: Yes Did you have a dental problem in the last 6 months where you did not have access to dental care?: No Was dental information given to patient?: Patient has dentist HPI establish care HPI Details The patient is a 64-year-old male presenting for a new patient appointment. His last primary care physician was Dr. Mclain, with the last visit for a physical in September or October of this year. The patient has a history of polymyalgia rheumatica and giant cell arteritis, managed by a frame maker, Dr. Brown. He has been on high-dose prednisone for 2.5 months, initially at 60 mg daily, and tapering attempts to 50 mg and then 40 mg were not well tolerated. He reports persistent aching in his upper arms and thighs, as well as buttock numbness and soreness. The patient expresses dissatisfaction with his current frame maker's management, citing a lack of regular follow-up, blood work monitoring, and communication regarding his prednisone taper, which differs from his previous experience with another provider in the same practice. Review of recent labs reveals his inflammatory markers have decreased, with a sed rate of 32 in February and 29 in April, and a CRP of 0.78 in February which normalized to 0.27 in April. His bad cholesterol (LDL) was elevated at 150 mg/dL in January. A prior hemoglobin A1c was 5.5, and a PSA test was normal. The patient is scheduled for a colonoscopy and endoscopy in June. He reports unintentional weight gain from prednisone and denies black or bloody stools. He is a non-smoker. Social History - Tobacco Use: Denies smoking. - Nutrition: Patient reports unintentional weight gain due to prednisone. - Nutrition: Patient believes he can control his cholesterol through diet and his is a cook. - Nutrition: Patient dislikes yogurt but eats granola. [facility] Medical History (Updated 04/24/25 @ 13:02 by Natalie Kaplan PA-C) Healthcare maintenance Prediabetes Skin lesion History of giant cell arteritis Polymyalgia rheumatica Temporal arteritis GERD (gastroesophageal reflux disease) HLD (hyperlipidemia) Depression Migraine Vitamin D deficiency Osteopenia Adrenocortical insufficiency Surgical History History of temporal artery biopsy H/O knee surgery Hx of bilateral cataract extraction History of hand surgery Family History Father T2DM (type 2 diabetes mellitus) CVA (cerebral vascular accident) Brother Renal cancer Mother Giant cell arteritis Sister T2DM (type 2 diabetes mellitus) Social History Housing: House Are you a primary health care assistant to a significant other at home: No Do you presently have visiting nurse or other home services: No Alcohol intake: current Alcohol intake frequency: 3 or more drinks per day Alcohol type: wine Patient Tobacco Use Status: Former Tobacco user service: No Current occupational status: employed Cognitive needs: No Hearing needs: No Vision needs: Yes (reading glasses) Questionnaire PHQ-9 Over the last 2 weeks, how often have you been bothered by any of the following problems? 1. Little interest or pleasure in doing things: not at all 2. Feeling down, depressed, or hopeless: not at all 3. Trouble falling or staying asleep, or sleeping too much: not at all 4. Feeling tired or having little energy: not at all 5. Poor appetite or overeating: not at all 6. Feeling bad about yourself - or that you are a failure or have let yourself or your family down: not at all 7. Trouble concentrating on things, such as reading the newspaper or watching television: not at all 8. Moving or speaking so slowly that other people could have noticed. Or the opposite - being so fidgety or restless that you have been moving around a lot more than usual: not at all 9. Thoughts that you would be better off or of hurting yourself in some way: not at all Total score: 0 Depression Screening Interpretation: Negative Depression Screening Done: Yes 25805 - PHQ-9 Billing: Yes Source: Developed by Drs. Scotty Ramos, Heather العراقي, Nelson Mcintyre and colleagues, with an educational marie from [employer]. Thrive Questionnaire Date Thrive assessed: 04/24/25 I am a: Patient What is your living situation today?: I have a steady place to live Within the past 12 months, did the food you bought not last and you didn't have the money to get more?: Never true Within the past 12 months, did you worry whether your food would run out before you got money to buy more?: Never true Do you have trouble paying for medicines?: No Do you have trouble getting transportation to medical appointments?: No Do you have trouble paying your heating and electricity bill?: No Do you have trouble taking care of your child, family member or friend?: No Do you have trouble with day-to-day activities such as bathing, preparing meals, shopping, managing finances, etc.?: No Are you currently unemployed and looking for a job?: No Are you interested in more education?: No Please select the resources that you would like help with: None THRIVE Score: 0 AUDIT C Alcohol Use Questionnaire (AUDIT-C) 1. How often do you have a drink containing alcohol?: 4 or more times a week 2. How many drinks containing alcohol do you have on a typical day when you are drinking?: 3 or 4 3. How often do you have six or more drinks on one occasion?: Daily or almost daily Total Score: 9 Score Reviewed/Action Taken: No ERIC-7 AMB Questionnaire ERIC-7 Date ERIC - 7 assessed: 04/24/25 Feeling nervous, anxious, or on edge: 0 = Not at all Not being able to stop or control worryin = Not at all Worrying too much about different things: 0 = Not at all Trouble relaxin = Not at all Being so restless that it is hard to sit still: 0 = Not at all Becoming easily annoyed or irritable: 0 = Not at all Feeling afraid as if something awful might happen: 0 = Not at all Total ERIC-7 score (0-4 normal; 5-9 mild; 10-14 moderate; 15-21 severe): 0 Source: Developed by Drs. Scotty Ramos, Heather العراقي, Nelson Mcintyre and colleagues, with an educational marie from [employer]. ERIC-7 Assessment Billing ERIC-7 Assessment Tool: ERIC-7 Assessment 90072 Review of Systems Const Details: - General: Reports unintentional weight gain secondary to prednisone. - Musculoskeletal: Reports aching in bilateral upper arms, numbness and soreness in the buttocks, and aching in the thighs. - Gastrointestinal: Denies melena or hematochezia. - Neurological: Reports numbness in buttocks. - Integumentary: Reports new skin spots and increased sweating since starting prednisone. All systems reviewed & are unremarkable except as noted in HPI and below Physical exam (Primary Care) Vital Signs: Last Vital Signs Temp 97.9 F 04/24/25 09:16 Pulse 62 04/24/25 09:16 Resp 14 04/24/25 09:16 BP 118/57 L 04/24/25 09:16 Pulse Ox 98 04/24/25 09:16 Oxygen Delivery Method Room Air 04/24/25 09:16 Care Plan Goal for BP management: <140/90 at Goal BMI result Body Mass Index 30.8 BMI Assessment/Plan discussion: High BMI High, discussed plan: lifestyle, weight reduction, dietary, physical activity, alcohol moderation and other Tobacco/Smoking Status: Tobacco use Status Tobacco use date assessed 04/24/25 04/24/25 09:24 Patient Tobacco Use Status Former Tobacco user 04/24/25 09:24 Tobacco use type 04/24/25 09:24 PHQ-9: PHQ-9 Score PHQ-9: Total score 0 04/24/25 10:14 Depression Screening Interpretation: Negative Thrive Assessment: Date of Thrive Assessment Date Thrive assessed 04/24/25 04/24/25 09:24 Const Other: Appearance: Alert. Oriented X3. No acute distress. Head: Normal external exam. Normocephalic. Atraumatic. Eyes: Pupils are equal, round, and reactive to light. Extraocular movements intact. Conjunctiva and sclera normal. Eyelids normal. Ears: External auditory canal normal. Tympanic membranes normal. Throat: Pharynx normal. Uvula midline. Moist mucous membranes. Neck: Normal inspection. Neck supple. Full range of motion. No adenopathy. Thyroid Normal. No meningeal signs. No neck mass noted. Cardiovascular: Normal heart rate and rhythm. Heart sound normal. No murmurs noted. Pulses normal throughout. Respiratory: No respiratory distress. Painless inspiration. Breath sounds normal. No wheezes/rales/rhonchi noted. No accessory muscle usage noted or decreased air movement noted. Abdomen: Soft and nontender. No distention noted. No organomegaly noted. Back: Full range of motion noted. Skin: Skin warm and dry. Normal skin color. Extremities: Extremities exhibit normal range of motion. Neuro: Oriented X 3. No motor deficit. No sensory deficit. Reflexes normal. Office Procedures Flu Questionnaire Does the patient have a severe egg allergy?: No Does the patient have severe life threatening allergies?: No Does the patient have a fever or illness today?: No Has the patient ever had Guillain-[place] Syndrome?: No Has the patient ever had any past reaction to a flu shot?: No Results AMB Hemoglobin A1c AMB Hemoglobin A1c 5.8 % Last Edit by Mary Anguiano on 04/24/25 10:05 Immunizations Fluarix [id number] (PF) 45 mcg (15 mcg x 3)/0.5 mL IM syringe Performing Provider: Natalie Kaplan PA-C [facility] Administered by: ROB Christie on 04/24/25 10:14 Dose Route Admin Location Dispensed Lot Number Expiration Date [facility] Freelance Programmer/App Developer 0.5 mL IM Right Deltoid 0.5 mL [id number] 12/10/25 [id number] [employer] VIS Given Date VIS Provided VIS Publication Date 04/24/25 Single Vaccine 24 Eligibility Eligibility Date Funding Source Not [facility] Eligible 04/24/25 Private Results Reviewed Results Reviewed: Laboratory Last Values Hgb A1c (Clinic) 5.8 % (4.0-6.0) 04/24/25 10:04 - In-office Hemoglobin A1c: 5.8%. - Labs from February 26: White blood cell count normal, red blood cells normal, platelets normal. - Inflammatory markers: Sed rate was 32 in February and 29 on April 17. - C-reactive protein (CRP): 0.78 mg/L in February, decreased to 0.27 mg/L recently. - Lipid panel (January): LDL cholesterol was elevated at 150 mg/dL, HDL was 46 mg/dL, and total cholesterol was normal. - Comprehensive Metabolic Panel (October): Sodium, potassium, and kidney function were normal. - Liver Function Tests: Liver enzymes were normal. - Prostate-Specific Antigen (PSA): Normal. - Hemoglobin A1c (prior): 5.5%. - Vitamin D: last checked in 2021. - Vitamin B12 and Folate: Normal prior to starting prednisone. Coding Level of Care Code New Pt Level 4 (93760) Complex EM visit Add On G2211 Diagnoses Polymyalgia rheumatica M35.3 HLD (hyperlipidemia) E78.5 Prediabetes R73.03 Healthcare maintenance Z00.00 Additional Codes ERIC-7 Assessment Billing - ERIC-7 Assessment Tool: ERIC-7 Assessment 01000 ([id number]) PHQ-9 - 45637 - PHQ-9 Billing: Yes ([id number]) Time Spent (min) 60 Assessment & Plan Assessment & Plan (1) Polymyalgia rheumatica: Code(s): M35.3 - Polymyalgia rheumatica Category: Medical Plan: The patient is currently managed by a frame maker for polymyalgia rheumatica and giant cell arteritis, with a prednisone taper. He expressed dissatisfaction with the current level of care, citing a lack of communication and monitoring compared to his previous provider. Options discussed include requesting to see a different provider within the current practice or obtaining a referral to another facility, such as [facility]. The patient will consider these options and communicate his decision for a potential referral. (2) HLD (hyperlipidemia): Code(s): E78.5 - Hyperlipidemia, unspecified Category: Medical Plan: The patient's LDL cholesterol was elevated at 150 mg/dL in January. Due to his existing muscle aches, starting a statin medication is deferred to avoid potential exacerbation of myalgia. The plan is to manage cholesterol through diet until his next physical in September. If dietary changes are insufficient, a statin or Zetia will be considered at that time. The patient was provided with educational materials on managing cholesterol through diet. (3) Prediabetes: Code(s): R73.03 - Prediabetes Category: Medical Plan: A lnqpe-rb-kdlh hemoglobin A1c test result was 5.8%, indicating prediabetes. The patient was counseled on dietary modifications, including reducing intake of sugars, breads, and pastas. He will be provided with informational materials about managing prediabetes through diet. (4) Healthcare maintenance: Code(s): Z00.00 - Encounter for general adult medical examination without abnormal findings Category: Medical Plan: The patient is establishing care as a new patient. Orders were placed for a urinalysis, vitamin D level, vitamin B12, and folate. The patient has a colonoscopy and endoscopy scheduled for June. He received an influenza vaccine during the visit. A referral will be placed to Dermatology for evaluation of new skin spots. Recommended follow-up is in 6 months for his annual physical in September or October. Plan Plan Patient was informed and verbally consented to the use of an ambient scribe for clinic note documentation during this visit. 1. Polymyalgia Rheumatica And Giant Cell Arteritis The patient is currently managed by a frame maker for polymyalgia rheumatica and giant cell arteritis, with a prednisone taper. He expressed dissatisfaction with the current level of care, citing a lack of communication and monitoring compared to his previous provider. Options discussed include requesting to see a different provider within the current practice or obtaining a referral to another facility, such as [facility]. The patient will consider these options and communicate his decision for a potential referral. 2. Hyperlipidemia The patient's LDL cholesterol was elevated at 150 mg/dL in January. Due to his existing muscle aches, starting a statin medication is deferred to avoid potential exacerbation of myalgia. The plan is to manage cholesterol through diet until his next physical in September. If dietary changes are insufficient, a statin or Zetia will be considered at that time. The patient was provided with educational materials on managing cholesterol through diet. 3. Prediabetes A kpccx-ji-wpdy hemoglobin A1c test result was 5.8%, indicating prediabetes. The patient was counseled on dietary modifications, including reducing intake of sugars, breads, and pastas. He will be provided with informational materials about managing prediabetes through diet. 4. Health Maintenance The patient is establishing care as a new patient. Orders were placed for a urinalysis, vitamin D level, vitamin B12, and folate. The patient has a colonoscopy and endoscopy scheduled for June. He received an influenza vaccine during the visit. A referral will be placed to Dermatology for evaluation of new skin spots. Recommended follow-up is in 6 months for his annual physical in September or October. I discussed the patient's dissatisfaction with his current rheumatology care, explaining that I cannot directly intervene in a specialist's treatment plan. I presented him with two options: requesting a transfer to another provider within the same practice or accepting a referral to a new practice, such as [facility]. I informed him that the decision is his, and he will let me know his preference. Regarding his elevated LDL of 150, I expressed hesitation to start a statin medication because of his existing myalgias, as this is a potential side effect. We agreed to trial dietary management, and I provided him with educational materials. We will reassess his cholesterol at his follow-up in six months and consider medication like a statin or Zetia if needed. His in-office A1c was 5.8%, indicating prediabetes. I counseled him on dietary changes, including reducing the intake of sugars, breads, and pastas, and provided him with information on this topic. I ordered a urinalysis, vitamin D, B12, and folate labs. I placed a referral to dermatology for evaluation of his new skin spots. He received his flu shot during the visit. I will see him back in about six months for his annual physical. Orders: Orders Vitamin D 25-OH Total Today Z00.00 - Encounter for general adult medical examination without abnormal findings AMB Hemoglobin A1c Today Z13.9 - Encounter for screening, unspecified Vitamin B12 and Folate Today Z00.00 - Encounter for general adult medical examination without abnormal findings Influenza [id number] Immunization Today Z23 - Encounter for immunization UA CC w/rflx Micro + Cult Today Z00.00 - Encounter for general adult medical examination without abnormal findings Hemoglobin A1c Today Z00.00 - Encounter for general adult medical examination without abnormal findings Referrals Dermatology Referral L98.9 - Disorder of the skin and subcutaneous tissue, unspecified Patient Instructions: - You will need to decide if you want to switch to a new frame maker. - You can either ask to see a different doctor in the same office or let us know, and we can send a referral to a new practice. - To lower your cholesterol, focus on dietary changes. - We will check your cholesterol again at your next visit in about 6 months. - Your blood sugar is a little high, in the prediabetic range. - Please reduce your intake of sugar, bread, and pasta. - You received your flu shot today in the office. - Please go to a lab for bloodwork (Vitamin D, B12, folate) and a urine test. - We have provided a referral to a skin doctor (veneer stapler) to evaluate the new spots on your skin. - Continue with your plan to have a colonoscopy in June. - Schedule a follow-up visit for your yearly physical in about six months (around September or October).
[2025-04-24 09:16] VITALS: BP 118/57; PULSE 62; RESP 14; TEMP 36.6; O2SAT 98; BMI 30.8
--- OUTSIDE RECORDS SUMMARY | 2025-04-24 09:21 | XMS_ITS | Patient Health Record ---
Author Organization [facility] Address [address] [place] [id number] Care Team Providers Care Rooming House Inspector Name Role Phone YUNIER HEATON Primary Care Provider Scotty Hoang [phone] Allergies No Known Allergies Reason For Referral No Information Problems Problem Type SNOMED Code ICD Code Onset Dates Problem Status W/U Status Risk Notes Problem Colon cancer screening (425212404) Colon cancer screening (Z12.11) Active confirmed Problem Gastro-esophageal reflux disease without esophagitis (031261846) Gastro-esophag eal reflux disease without esophagitis (K21.9) Active confirmed Problem Screening for malignant neoplasm of colon (866320749) Encounter for screening for malignant neoplasm of colon (Z12.11) Active confirmed Problem Screening for malignant neoplasm of rectum (614339235) Encounter for screening for malignant neoplasm of rectum (Z12.12) Active confirmed Problem Dysphagia (46582748) Dysphagia (R13.10) Active confirmed Problem Abnormal feces (924219499) Heme + stool (R19.5) Active confirmed Problem Gastroesophageal reflux disease (751027487) GERD (gastroesophag eal reflux disease) (K21.9) Active [...] N/A Encounters Encounter Location Date Provider Diagnosis [facility] [address] [place] [address] 02/12/2025 Scotty Jean Dysphagia R13.10 ; GERD [...] Next Appt Details Provider Name:Scotty Jean , 07/01/2025 10:30:00 AM, [address] , [place], [place], [id number], Insurance Providers Payer Name Payer Address Payer Phone Subscriber Number Group Number Insured Name Patient Relationship to Insured Coverage Start Date Coverage End Date [facility] [address] [place] [address] [phone] [id number] NICANOR MCNAIR Self - patient is the insured Medical (General) History Medical History History ICD Code Denies IA,DM,CVA,Lung disease,renal dise ase GERD--upper GI series in October of 2014 describes a small hiatal hernia, reflux, thickening of distal esophageal folds, and mild narrowing of the distal esophagus PMR and Giant Cell Arteritis --sees [facility] Rheumatology Dr. Brown--going to start prednisone and Actemra injections as of the 02/2025 OV Negative colonoscopy in 07/2015 EGD 07/2015 with erosive esophagitis--no Saeed's, small hiatal hernia Surgical History Surgery Date(Month/Year) Left 4th finger Right knee surgeriesX5
--- OUTSIDE RECORDS SUMMARY | 2025-04-24 09:21 | XMS_ITS | Encounter Summary ---
Author Organization [facility] Address [address] [facility] [address] [place] [phone] Phone Care Team Providers Care Case Monitor Name Role Phone Timur Mclain MD Primary Care Provider [phone]- [phone] Encounter Details Date Type Department Care Team (Late st Contact Info) Description 02/01/2019 Procedure Pass [facility] [address] [address] Social History Tobacco Use Types Packs/Day Years [...] on filedocumented in this encounter Care Teams Case Monitor Relationship Specialty Start Date End Date Timur Mclain MD [address] [place] [id number] PCP - General Internal Medicine 11/13/18 documented as of this encounter Additional Source Comments The information contained in this document represents components of the legal health record. It is not the complete legal health record.[facility]
--- OUTSIDE RECORDS SUMMARY | 2025-04-24 09:21 | XMS_ITS | Clinical Summary ---
Author Organization [facility] Address [address] [place] [phone] Phone Care Team Providers Care Grounding Engineer Name Role Phone Timur Mclain MD Primary Care Provider [phone]- [phone] Allergies No known active allergies Medications omeprazole (PRILOSEC) 20 MG capsule 11 11/24/2018 Active predniSONE (DELTASONE) 20 MG tablet Take 40 mg by mouth daily. 2 10/23/2018 Active ACTEMRA 162 mg/0.9 mL subcutaneous injection syringe 11/30/2018 A ctive Ca cit-D3-mag#11-zin q-eljm-xfi-bor (CALTRATE 600+D) 600 mg calcium- 800 unit-50 [...] VACCINES (50+ years) (2 of 2 - PPSV23, PCV20, or PCV21) 11/08/2018 09/13/2018 COVID-19 VACCINE (3 - Moderna risk series) 11/28/2020 10/31/2020, 10/03/2020 INFLUENZA VACCINE (#1) 2025 0, 04/04/2019, 04/21/2018, Additional history exists HEPATITIS A VACCINES Aged Out No long er eligible based on patient's age to complete this topic HIB VACCINES Aged Out No longer eligi ble based on patient's age to complete this topic IPV VACCINES Aged Out No longer eligi ble based on patient's age to complete this topic MENINGOCOCCAL VACCINES (ACWY) Aged Out No longer eligible based on patient's age to complete this topic MENINGOCOCCAL VACCINES (B) Aged Out N o longer eligible based on patient's age to complete this topic Medical Devices Not on file Insurance PPO EPO PPO EPO PPO EPO PPO EPO [place] [address] [place] [address] PPO EPO PPO EPO PPO EPO PPO EPO Care Teams Grounding Engineer Relationship Specialty Start Date End Date Timur Mclain MD [address] [place] [phone] PCP - General Internal Medicine 11/13/18 Additional Source Comments The information contained in this document represents components of the legal health record. It is not the complete legal health record.[facility]
--- OUTSIDE RECORDS SUMMARY | 2025-04-24 09:21 | XMS_ITS | Clinical Summary ---
Author Organization [facility] Address [address] [place] [address] Phone Care Team Providers Care Zoning Assistant Name Role Phone Unavailable Primary Care Provider Unavailabl e Encounters Date Type Department Care Team Description 03/15/2025 1:22 PM EDT - 03/15/2025 11:59 PM EDT Hospital Encounter [facility] PET Scan [address] [place] [address] Other giant cell arteritis (CMS/HCC [...] 3:30 PM EDT Other giant cell arteritis ([facility] V24, [facility] V28) Polymyalgia rheumatica ([facility] V24) from Last 3 Months Results * [...] Signed Date: 03/27/2025 14:20 ET Workstation ID: [id number] Transcribed By: Self Edit Transcribed Date: 03/27/2025 [...] Signed Date: 03/27/2025 14:20 ET Workstation ID: [id number] Transcribed By: Self Edit Transcribed Date: 03/27/2025 14:05 ET us Kuldip Jacki Brown MD IMG NM PROCEDURES Final R esult from Last [address] [place] [address]
== END 2025-04-24 10:14 | disposition home or self-care (01) ==
LOC: HO.HMCSH 08:53
PROVIDERS: PCP Physician Assistant Medical; Visit Provider Physician Assistant Medical
DX: M35.3 Polymyalgia rheumatica (principal); E78.5 Hyperlipidemia, unspecified; R73.03 Prediabetes; Z00.00 Encounter for general adult medical examination without abnormal findings; Z13.9 Encounter for screening, unspecified; Z23 Encounter for immunization

== ENCOUNTER → 2025-04-24 08:53 | Outpatient (BNVA) | payer BC, SELFPAY | PROVIDERS: PCP Physician Assistant Medical; Visit Provider Physician Assistant Medical | DX: Z00.00 Encounter for general adult medical examination without abnormal findings (principal); Z23 Encounter for immunization; M35.3 Polymyalgia rheumatica; R73.03 Prediabetes; E78.5 Hyperlipidemia, unspecified | CPT/HCPCS: 83036; 90471; 90656; 96127 ==

== ENCOUNTER 2025-05-14 13:05 | Outpatient (AMB) | payer BC, SELFPAY ==
--- NOTE | 2025-05-14 13:16 | A.OFFPC_ITS ---
Vital Signs 05/14/25 13:32 Height 5 ft 10 in Weight 221 lb 0.2 oz BMI 31.7 BP 137/71 Blood Pressure Location Rt brachial Pulse 78 Pulse Source Pulse Oximeter Temp 97.2 F Pulse Oximetry (%) 98 Intake Visit Reasons: follow up Rheumatology Intake Note: Saw the rheumatology and feel he needs to go a different way and was told to go back to pcp. Allergies diesel exhaust Allergy (Mild, Uncoded 05/14/25 14:28) Migraine Medication List - Last Reconciled 05/14/25 by Natalie Kaplan PA-C prednisone 60 mg (3 x 20 mg) PO DAILY 7 days prednisone 10 mg PO DIRECTED prednisone 5 mg PO DIRECTED Tobacco use date assessed: 04/24/25 Dental Screening Dental Screen Date: 04/24/25 Did you have a dental visit in the last 12 months?: Yes Did you have a dental problem in the last 6 months where you did not have access to dental care?: Yes Was dental information given to patient?: Patient has dentist HPI HPI Comments History of Present Illness Details History of Present Illness The patient is a 64 year old individual presenting for follow-up of rheumatological conditions and management of prednisone therapy. The patient's current pilot boat operator is questioning the diagnosis of polymyalgia rheumatica (PMR) and wants to return care to the PCP. The patient is nearly out of prednisone due to an unfillable prescription for a taper. The patient was diagnosed with PMR in 2016 with a modest response to prednisone. The patient subsequently developed headaches in February 2017 and was diagnosed with presumed giant cell arteritis (GCA), which was supported by a positive te mporal artery ultrasound in [place]. Treatment included prednisone 80 mg daily and later Actemra, which was discontinued in February 2019. Methotrexate was ineffective. Right and left temporal artery biopsies performed after two years of treatment were negative, as was a PET scan. The patient reports recurrent symptoms including intermittent temporal headaches, scalp tenderness, jaw pain with yawning, and shoulder/hip girdle symptoms suggestive of a PMR relapse. Inflammatory markers were mildly elevated in February. The pilot boat operator tapered prednisone from 60 mg, at which the patient felt well, down to 40 mg, which was not well tolerated. The patient reports a history of difficulty tapering off prednisone, particularly from 40 mg to 35 mg. Current symptoms include pain waking the patient in the morning located in the high, inner thighs and both arms. Upon sitting, the patient experiences coccyx pain that spreads out and is followed by numbness across the gluteal area. The patient also reports that arms feel heavy when held stationary for any period, impacting the ability to drive or play bagpipes. Social History - Employment: The patient is currently w orking. - Functional Status: Reports extreme exh austion with prednisone taper. - Hobbies: The patient plays the bagpipe s but is limited by arm heaviness. - Travel History: The patient has doctor s in both the [place] and [place] and plans to travel to [place] for three weeks. [facility] Medical History (Updated 05/14/25 @ 14:30 by Natalie Kaplan PA-C) On prednisone therapy Healthcare maintenance Prediabetes Skin lesion History of giant cell arteritis Polymyalgia rheumatica Temporal arteritis GERD (gastroesophageal reflux disease) HLD (hyperlipidemia) Depression Migraine Vitamin D deficiency Osteopenia Adrenocortical insufficiency Surgical History History of temporal artery biopsy H/O knee surgery Hx of bilateral cataract extraction History of hand surgery Family History Father T2DM (type 2 diabetes mellitus) CVA (cerebral vascular accident) Brother Renal cancer Mother Giant cell arteritis Sister T2DM (type 2 diabetes mellitus) Social History Housing: House Are you a primary care advocate to a significant other at home: No Do you presently have visiting nurse or other home services: No Alcohol intake: current Alcohol intake frequency: 3 or more drinks per day Alcohol type: wine Patient Tobacco Use Status: Former Tobacco user service: No Current occupational status: employed Cognitive needs: No Hearing needs: No Vision needs: Yes (reading glasses) Questionnaire PHQ-9 Over the last 2 weeks, how often have you been bothered by any of the following problems? 1. Little interest or pleasure in doing things: not at all 2. Feeling down, depressed, or hopeless: not at all 3. Trouble falling or staying asleep, or sleeping too much: not at all 4. Feeling tired or having little energy: not at all 5. Poor appetite or overeating: not at all 6. Feeling bad about yourself - or that you are a failure or have let yourself or your family down: not at all 7. Trouble concentrating on things, such as reading the newspaper or watching television: not at all 8. Moving or speaking so slowly that other people could have noticed. Or the opposite - being so fidgety or restless that you have been moving around a lot more than usual: not at all 9. Thoughts that you would be better off or of hurting yourself in some way: not at all Total score: 0 Depression Screening Interpretation: Negative Depression Screening Done: Yes 06187 - PHQ-9 Billing: Yes Source: Developed by Drs. Scotty Ramos, Heather العراقي, Nelson Mcintyre and colleagues, with an educational marie from [employer]. Thrive Questionnaire Date Thrive assessed: 04/24/25 I am a: Patient What is your living situation today?: I have a steady place to live Within the past 12 months, did the food you bought not last and you didn't have the money to get more?: Never true Within the past 12 months, did you worry whether your food would run out before you got money to buy more?: Never true Do you have trouble paying for medicines?: No Do you have trouble getting transportation to medical appointments?: No Do you have trouble paying your heating and electricity bill?: No Do you have trouble taking care of your child, family member or friend?: No Do you have trouble with day-to-day activities such as bathing, preparing meals, shopping, managing finances, etc.?: No Are you currently unemployed and looking for a job?: No Are you interested in more education?: No Please select the resources that you would like help with: None THRIVE Score: 0 AUDIT C Alcohol Use Questionnaire (AUDIT-C) 1. How often do you have a drink containing alcohol?: 4 or more times a week 2. How many drinks containing alcohol do you have on a typical day when you are drinking?: 3 or 4 3. How often do you have six or more drinks on one occasion?: Daily or almost daily Total Score: 9 Score Reviewed/Action Taken: No ERIC-7 AMB Questionnaire ERIC-7 Date ERIC - 7 assessed: 04/24/25 Feeling nervous, anxious, or on edge: 0 = Not at all Not being able to stop or control worryin = Not at all Worrying too much about different things: 0 = Not at all Trouble relaxin = Not at all Being so restless that it is hard to sit still: 0 = Not at all Becoming easily annoyed or irritable: 0 = Not at all Feeling afraid as if something awful might happen: 0 = Not at all Total ERIC-7 score (0-4 normal; 5-9 mild; 10-14 moderate; 15-21 severe): 0 Source: Developed by Drs. Scotty Ramos, Heather العراقي, Nelson Mcintyre and colleagues, with an educational marie from [employer]. ERIC-7 Assessment Billing ERIC-7 Assessment Tool: ERIC-7 Assessment 73729 Review of Systems Narrative Review of Systems - Constitutional: Reports exhaustion associated with prednisone taper. - Neurological: Reports heaviness and numbness in the limbs. - Head: Reports recurrent intermittent temporal headaches and scalp tenderness. - Mouth/Jaw: Reports jaw pain with yawning. - Musculoskeletal: Reports shoulder and hip girdle symptoms. - Back: Reports coccyx pain after sitting, which spreads out and is followed by numbness across the gluteal area. - Extremities: Reports pain in the high inner thighs and both arms, which can awaken the patient from sleep. Const All systems reviewed & are unremarkable except as noted in HPI and below Physical exam (Primary Care) Vital Signs: Last Vital Signs Temp 97.2 F 05/14/25 13:32 Pulse 78 05/14/25 13:32 BP 137/71 05/14/25 13:32 Pulse Ox 98 05/14/25 13:32 Care Plan Goal for BP management: <140/90 at Goal BMI result Body Mass Index 31.7 BMI Assessment/Plan discussion: High BMI High, discussed plan: lifestyle, weight reduction, dietary, physical activity, alcohol moderation and other Tobacco/Smoking Status: Tobacco use Status Tobacco use date assessed 04/24/25 05/14/25 13:18 Patient Tobacco Use Status Former Tobacco user 05/14/25 13:18 Tobacco use type 05/13/25 10:41 PHQ-9: PHQ-9 Score PHQ-9: Total score 0 05/14/25 13:18 Depression Screening Interpretation: Negative Thrive Assessment: Date of Thrive Assessment Date Thrive assessed 04/24/25 05/14/25 13:18 Narrative Physical Exam Appearance: Alert. Oriented X3. No acute distress. Head: Normal external exam. Normocephalic. Atraumatic. Eyes: Pupils are equal, round, and reactive to light. Extraocular movements intact. Conjunctiva and sclera normal. Eyelids normal. Throat: Pharynx normal. Uvula midline. Moist mucous membranes. Neck: Normal inspection. Neck supple. Full range of motion. Cardiovascular: Normal heart rate and rhythm. Respiratory: No respiratory distress. Painless inspiration. Back: Full range of motion noted. Skin: Skin warm and dry. Normal skin color. Extremities: Extremities exhibit normal range of motion. Office Procedures Flu Questionnaire Does the patient have a severe egg allergy?: No Does the patient have severe life threatening allergies?: No Does the patient have a fever or illness today?: No Has the patient ever had Guillain-[place] Syndrome?: No Has the patient ever had any past reaction to a flu shot?: No Immunizations Fluarix [id number] (PF) 45 mcg (15 mcg x 3)/0.5 mL IM syringe Performing Provider: Natalie Kaplan PA-C [facility] Documented (not given) by: Mary Anguiano on 05/14/25 13:42 Reason Not Given: Received Previously Results Reviewed Results Reviewed: Results - Labs: Recent inflammatory markers from February showed the sed rate was largely unchanged, while the CRP had improved significantly. - Imaging and Procedures: History of a positive temporal artery ultrasound in [place]. - History of a negative right temporal artery biopsy performed in [place]. - History of a negative left temporal artery biopsy. - History of a negative PET scan. - The patient's 's thyroid ultrasound showed a 6 mm nodule, which is small and does not require further workup at this time. Coding Level of Care Code Est Pt Level 4 (91283) Complex visit Add On G2211 Diagnoses Polymyalgia rheumatica M35.3 Giant cell arteritis M31.6 On prednisone therapy Z79.52 Additional Codes ERIC-7 Assessment Billing - ERIC-7 Assessment Tool: ERIC-7 Assessment 02408 ([id number]) PHQ-9 - 86634 - PHQ-9 Billing: Yes ([id number]) Time Spent (min) 60 Assessment & Plan Assessment & Plan (1) Polymyalgia rheumatica: Code(s): M35.3 - Polymyalgia rheumatica Category: Medical Plan: The patient's diagnosis of polymyalgia rheumatica is being questioned by the current pilot boat operator, despite ongoing symptoms suggestive of a relapse. The orlando amato reports significant symptoms including pain in the thighs and arms, coccyx pain, and heaviness in the arms with activity. An urgent referral to a pilot boat operator at [facility] will be placed for a second opinion and continued management. A copy of the referral will be provided to the patient to facilitate scheduling. Will also communicate with the patient's current pilot boat operator regarding the plan after the prescribed steroid taper. (2) Giant cell arteritis: Comment: Concern for GCA and PMR relapse but inflammatory markers are mildly elevated comparable to past inflammatory markers in [facility]. Left temporal artery biopsy did not reveal changes suggestive of GCA. He continues to have cranial GCA symptoms with intermittent temporal headache, daily scalp tenderness, shoulder/biceps and hip girdle pain with weakness. Further investigation of GCA and PMR is warranted with PET scan as it will global climate change analyst with the initiation of prednisone and reinstitution of Actemra. His mother had giant cell arteritis presenting with acute blindness on presentation. PET scan will aid with diagnosis as it can review large vessel vasculitis confirming diagnosis of giant cell arteritis contributing to his symptoms. It is imperative that we move ahead with further diagnostic evaluation for giant cell arteritis because if it is left untreated it may result in devastating outcome of irreversible blindness impacting his quality of life, functionality, leading to disability. Rheumatology history: He was diagnosed with PMR 2016 and started on prednisone with modest response. He developed headaches February 2017 and was diagnosed with presumed GCA. He had positive ultrasound of the temporal artery done in [place]. He was started on prednisone 80 mg daily. Methotrexate was ineffective in controlling inflammatory markers. Actemra was added in September of 2018 and was able to taper off of prednisone. Actemra was discontinued February 2019. He had a right temporal artery biopsy in [place] after being on treatment for at least 2 years but it was negative. Left temporal artery biopsy negative 02/2025 for GCA in setting of recurrent intermittent temporal headaches, scalp tenderness, jaw pain with yawning, shoulder/hip girdle symptoms suggestive of PMR relapse. Inflammatory markers mildly elevated. Code(s): M31.6 - Other giant cell arteritis Category: Medical (3) On prednisone therapy: Code(s): Z79.52 - group home (current) use of systemic steroids Category: Medical Plan: The patient is running out of prednisone due to a prescription error from the specialist's office. The patient is currently taking 30 mg daily and has only a one-day supply remaining. A new prescription for prednisone 5 mg tablets has been sent to the patient's pharmacy to ensure continuity of care. The prescription follows the pilot boat operator's intended 12-week taper schedule: take 6 tablets (30 mg) daily for 14 days, then decrease by 1 tablet (5 mg) every 14 days until the course is finished. A paper copy of the prescription will be provided to the patient. Plan Plan Patient was informed and verbally consented to the use of an ambient scribe for clinic note documentation during this visit. 1. Polymyalgia Rheumatica / Giant Cell Arteritis The patient's diagnosis of polymyalgia rheumatica is being questioned by the current pilot boat operator, despite ongoing symptoms suggestive of a relapse. The patient reports significant symptoms including pain in the thighs and arms, coccyx pain, and heaviness in the arms with activity. An urgent referral to a pilot boat operator at [facility] will be placed for a second opinion and continued management. A copy of the referral will be provided to the patient to facilitate scheduling. Will also communicate with the patient's current pilot boat operator regarding the plan after the prescribed steroid taper. 2. Chronic Prednisone Therapy Management The patient is running out of prednisone due to a prescription error from the specialist's office. The patient is currently taking 30 mg daily and has only a one-day supply remaining. A new prescription for prednisone 5 mg tablets has been sent to the patient's pharmacy to ensure continuity of care. The prescription follows the pilot boat operator's intended 12-week taper schedule: take 6 tablets (30 mg) daily for 14 days, then decrease by 1 tablet (5 mg) every 14 days until the course is finished. A paper copy of the prescription will be provided to the patient. Discussion Notes I addressed the patient's urgent need for a prednisone refill, which was caused by a clerical error at the specialist's office. I issued a new prescription following the 12-week tapering plan intended by the pilot boat operator and provided a paper copy for the patient's records. Given the diagnostic uncertainty from the current pilot boat operator and the patient's persistent symptoms, I am placing an urgent referral to a new pilot boat operator at [facility] for a second opinion and further management. We discussed the importance of scheduling this new appointment before the 12-week prednisone course ends. I also reviewed the patient's 's recent thyroid ultrasound, reassuring the patient that the 6 mm nodule is small and does not require immediate intervention but can be monitored periodically. Orders: Orders Influenza [id number] Immunization Today Z23 - Encounter for immunization Referrals Rheumatology Referral E27.40 - Unspecified adrenocortical insufficiency, E55.9 - Vitamin D deficiency, unspecified, M31.6 - Other giant cell arteritis, M35.3 - Polymyalgia rheumatica, M85.80 - Other specified disorders of bone density and structure, unspecified site, Z79.52 - vermin exterminator (current) use of systemic steroids, Z86.79 - Personal history of other diseases of the circulatory system Medications: Changed From prednisone Reduce prednisone by 5 mg every 14 days 5 mg PO DIRECTED 314 tabs 0RF To prednisone Take 6 tablets daily 14 days, 5 tablets daily 14 days, 4 tablets daily 14 days, 3 tablets daily 14 days, 2 tablets daily 14 days, 1 tablet daily 14 days, then stop. Two hundred ninety-four tablets. 5 mg PO DIRECTED 294 tabs 0RF Refilled prednisone Take 6 tablets daily 14 days, 5 tablets daily 14 days, 4 tablets daily 14 days, 3 tablets daily 14 days, 2 tablets daily 14 days, 1 tablet daily 14 days, then stop. Two hundred ninety-four tablets. 5 mg PO DIRECTED 294 tabs 0RF Patient Instructions: Patient Instructions - A new prescription for prednisone has been sent to [facility]. - Follow the tapering instructions carefully: Take 6 tablets (30 mg) daily for 14 days, then reduce the dose by 1 tablet every 14 days until you are finished. - An urgent referral has been made to a new pilot boat operator at [facility]. - Please call the new pilot boat operator's office to schedule an appointment as soon as possible, ideally within the next 12 weeks. - Regarding your 's thyroid ultrasound, the 6 mm nodule is very small and not a concern at this time. - It can be re-checked with another ultrasound in 1-2 years.
[2025-05-14 13:32] VITALS: BP 137/71; PULSE 78; TEMP 36.2; O2SAT 98; BMI 31.7
--- OUTSIDE RECORDS SUMMARY | 2025-05-14 15:01 | XMS_ITS | Encounter Summary ---
Author Organization [facility] Address [address] [facility] [address] [place] [phone] Phone Care Team Providers Care Insurance Premium Auditor Name Role Phone Timur Mclain MD Primary Care Provider [phone]- [phone] Encounter Details Date Type Department Care Team (Late st Contact Info) Description 02/01/2019 Procedure Pass [facility]'s [address] [address] Social History Tobacco Use Types Packs/Day Years [...] on filedocumented in this encounter Care Teams Insurance Premium Auditor Relationship Specialty Start Date End Date Timur Mclain MD [address] [place] [id number] PCP - General Internal Medicine 11/13/18 documented as of this encounter Additional Source Comments The information contained in this document represents components of the legal health record. It is not the complete legal health record.[facility]
--- OUTSIDE RECORDS SUMMARY | 2025-05-14 15:01 | XMS_ITS | Clinical Summary ---
Author Organization [facility] Address [address] [place] [address] Phone Care Team Providers Care Triage Clinician Name Role Phone Unavailable Primary Care Provider Unavailabl e Encounters Date Type Department Care Team Description 03/15/2025 1:22 PM EDT - 03/15/2025 11:59 PM EDT Hospital Encounter [facility] PET Scan [address] [place] [address] Other giant cell arteritis (CMS/HCC [...] 3:30 PM EDT Other giant cell arteritis ([facility] V24, [facility] V28) Polymyalgia rheumatica ([facility] V24) from Last 3 Months [...] Signed Date: 03/27/2025 14:20 ET Workstation ID: [id number] Transcribed By: Self Edit Transcribed Date: 03/27/2025 [...] Signed Date: 03/27/2025 14:20 ET Workstation ID: [id number] Transcribed By: Self Edit Transcribed Date: 03/27/2025 14:05 ET us Kuldip Jacki Brown MD IMG NM PROCEDURES Final R esult from Last [address] [place] [address] [address]
--- OUTSIDE RECORDS SUMMARY | 2025-05-14 15:01 | XMS_ITS | Clinical Summary ---
Author Organization [facility] Address [address] [place] [phone] Phone Care Team Providers Care Doorkeeper Name Role Phone Timur Mclain MD Primary Care Provider +1- [phone] Allergies No known active allergies Medications omeprazole (PRILOSEC) 20 MG capsule 11 11/24/2018 Active predniSONE (DELTASONE) 20 MG tablet Take 40 mg by mouth daily. 2 10/23/2018 Active ACTEMRA 162 mg/0.9 mL subcutaneous injection syringe 11/30/2018 A ctive Ca cit-D3-mag#11-zin h-apsl-sgl-bor (CALTRATE 600+D) 600 mg calcium- 800 unit-50 [...] Insurance PPO EPO PPO EPO [place] [address] [place] [address] [address] [place] [address] [place] [address] [place] [address] [address] [place] [address] PPO EPO PPO EPO PPO EPO Care Teams Doorkeeper Relationship Specialty Start Date End Date Timur Mclain MD [address] [place] [phone] PCP - General Internal Medicine 11/13/18 Additional Source Comments The information contained in this document represents components of the legal health record. It is not the complete legal health record.[facility]
== END 2025-05-14 14:21 | disposition home or self-care (01) ==
LOC: HO.HMCSH 13:05
PROVIDERS: PCP Physician Assistant Medical; Visit Provider Physician Assistant Medical
DX: M35.3 Polymyalgia rheumatica (principal); M31.6 Other giant cell arteritis; Z79.52 Long term (current) use of systemic steroids; Z23 Encounter for immunization

== ENCOUNTER → 2025-05-14 13:05 | Outpatient (BNVA) | payer BC, SELFPAY | PROVIDERS: PCP Physician Assistant Medical; Visit Provider Physician Assistant Medical | DX: M35.3 Polymyalgia rheumatica (principal); Z28.89 Immunization not carried out for other reason; M31.6 Other giant cell arteritis; Z79.52 Long term (current) use of systemic steroids | CPT/HCPCS: 90471; 96127 ==

== ENCOUNTER 2025-06-12 08:24 | Outpatient (AMB) | payer BC, SELFPAY ==
[2025-06-12 08:26] VITALS: BP 104/70; PULSE 78; O2SAT 99; BMI 41.4
--- NOTE | 2025-06-12 08:26 | A.OFFVIS_ITS ---
Vital Signs 06/12/25 08:26 Height 5 ft 1 in Weight 218 lb 14.704 oz BMI 41.4 BP 104/70 Blood Pressure Location Rt brachial Position Sitting Pulse 78 Pulse Source Pulse Oximeter Pulse Oximetry (%) 99 Oxygen Delivery Method Room Air Intake Visit Reasons: 3months Accompanied by: Self / Same As Patient Allergies diesel exhaust Allergy (Mild, Uncoded 05/14/25 14:28) Migraine HPI HPI 3months: Details: Scalp tenderness and headache resolved when he was on high dose prednisone 60 mg daily. He continues to have difficulty with using his arms when he is brushing his hair or using a toothbrush. He is unable to keep his arms up for a long period of time. He has difficulty with driving to his daughter who lives 2 hours away. After 45 minutes he has the need to get up and move. When he is driving his arms are not up on the steering wheel. He continues to have thigh pain with activity and weakness. Tapering prednisone 5 mg every 2 weeks. On prednisone 20mg daily for 4 days. Last 2 days of prednisone taper prior to next taper he has normalized his pain but he has difficulty tapering every step. Unable to progress with PT. Unable to do exercises in the morning before work. He is fatigued after work. He has been experiencing dysphagia to solid every few months. EGD scheduled in 2 weeks for further evaluation. Colonscopy scheduled in 2 weeks along with EGD. Denies new rash. He had a brother that from kidney cancer. He also had another brother that from leukemia in childhood at age 15 when he was 4 years old. [facility], LAT[facility] Medical History On prednisone therapy Healthcare maintenance Prediabetes Skin lesion History of giant cell arteritis Polymyalgia rheumatica Temporal arteritis GERD (gastroesophageal reflux disease) HLD (hyperlipidemia) Depression Migraine Vitamin D deficiency Osteopenia Adrenocortical insufficiency Surgical History History of temporal artery biopsy H/O knee surgery Hx of bilateral cataract extraction History of hand surgery Family History Father T2DM (type 2 diabetes mellitus) CVA (cerebral vascular accident) Brother Renal cancer Mother Giant cell arteritis Sister T2DM (type 2 diabetes mellitus) Social History Housing: House Are you a primary resident care director to a significant other at home: No Do you presently have visiting nurse or other home services: No Alcohol intake: current Alcohol intake frequency: 3 or more drinks per day Alcohol type: wine Patient Tobacco Use Status: Former Tobacco user service: No Current occupational status: employed Cognitive needs: No Hearing needs: No Vision needs: Yes (reading glasses) Physical Exam Vital Signs: Last Vital Signs Pulse 78 06/12/25 08:26 BP 104/70 06/12/25 08:26 Pulse Ox 99 06/12/25 08:26 Oxygen Delivery Method Room Air 06/12/25 08:26 BMI result Body Mass Index 41.4 Const Other: General: Comfortable CVS: RRR Respiratory: clear to auscultation bilaterally. Good respiratory effort Skin: No lesions seen MSK: Synovitis left 2nd PIP. 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 No tenderness of left 2nd PIP. Normal range of motion of upper extremities and lower extremities. Power upper extremity is 5/5. Lower extremity power hip flexors 3/5, rest of lower extremities is 5/5. Assessment & Plan Assessment & Plan (1) Bilateral shoulder pain: Comment: With chronic soreness of his biceps, thighs and muscle fatigue worse in the morning, exacerbated with use with clinical exam revealing lower extremity proximal muscle weakness of unclear etiology. He has elevated inflammatory markers. Muscle enzymes are normal. He has not had improvement on high dose prednisone, which was started for concern due to giant cell arteritis. His presentation is not typical of polymyalgia rheumatica, which would be responsive to [id number] dose prednisone. I have started tapering prednisone since extensive workup for giant cell arteritis and PMR was negative including left temporal artery biopsy and PET scan, which did not show changes suggestive of active vasculitis or polymyalgia rheumatica. PET scan was also reassuring as it did not reveal solid tumor concerning for cancer, which can contribute to paraneoplastic syndrome. EMG of left upper and lower extremity was normal. Imaging with x-ray reveals mild degenerative changes of shoulders and hips with calcific tendonitis, which would not explain patient's presentation. He was unable to tolerate PT and progress with physical therapy. Code(s): M25.511 - Pain in right shoulder; M25.512 - Pain in left shoulder Category: Medical Qualifiers: Chronicity: chronic Qualified Code(s): M25.511 - Pain in right shoulder; M25.512 - Pain in left shoulder; G89.29 - Other chronic pain Plan: Continue to taper prednisone. I will slower taper. He will complete 2 full weeks of prednisone 20 mg daily then decrease prednisone 2.5 mg every 14 days. He will remain on 10 mg daily until his clinic visit. Labs ordered including inflammatory markers and muscle enzymes MRI right shoulder without contrast to rule out rotator cuff tear/ligament injury contributing to his presentation MRI right hip without contrast to rule out hip pathology contributing to lower proximal muscle weakness MRI right humerus with and without contrast to evaluate for myositis/muscle or tendon pathology MRI right femur with and without contrast to evaluate for myositis/muscle or tendon pathology He will be seeing PMR for evaluation after our clinic visit Vascular consultation for evaluation of vascular disease ?PVD Patient is having EGD and colonoscopy in 2 weeks Contraindication to oral NSAIDs due to prednisone use Return to clinic in 2 months (2) Giant cell arteritis: Comment: Initially I had concern for GCA and PMR relapse in January due to patient's cranial symptoms, shoulder and hip girdle pain and muscle fatigue with elevated inflammatory markers. However, extensive workup has not revealed GCA or PMR as a cause of his current symptoms. He has had difficulty with tapering off of prednisone due to symptoms of upper extremity and lower extremity worsening with taper. Cranial symptoms with intermittent temporal headache, daily scalp tenderness resolved on high dose prednisone 60 mg daily. He continues to have chronic shoulder/biceps and hip girdle pain with weakness, which was not responsive to high dose prednisone. PET scan did not reveal vasculitis or PMR. Left temporal artery biopsy was negative. I will continue to taper prednisone with a slower taper. Rheumatology history: He was diagnosed with PMR 2016 and started on prednisone with modest response. He developed headaches February 2017 and was diagnosed with presumed GCA. He had positive ultrasound of the temporal artery done in [place]. He was started on prednisone 80 mg daily. Methotrexate was ineffective in controlling inflammatory markers. Actemra was added in September of 2018 and was able to taper off of prednisone. Actemra was discontinued February 2019. He had a right temporal artery biopsy in [place] after being on treatment for at least 2 years but it was negative. Left temporal artery biopsy negative 02/2025 for GCA in setting of recurrent intermittent temporal headaches, scalp tenderness, jaw pain with yawning, shoulder/hip girdle pain with muscle fatigue suggestive of PMR relapse (symptom onset October or November 2024). Significant family history of GCA with mother diagnosed presenting with blindness. Inflammatory markers mildly elevated. Normal muscle enzymes. Prednisone started 02/28/2025 due to high clinical concern for GCA/PMR. PET scan March 2025 did not reveal vasculitis or PMR. Left upper extremity and lower extremity EMG normal. Prednisone is being tapered off. Code(s): M31.6 - Other giant cell arteritis Category: Medical Plan: Continue tapering prednisone as above (3) Weakness of both upper extremities: Code(s): R29.898 - Other symptoms and signs involving the musculoskeletal system Category: Medical Plan: See above (4) Weakness of both lower extremities: Code(s): R29.898 - Other symptoms and signs involving the musculoskeletal system Category: Medical Plan: See above (5) Polymyalgia rheumatica: Code(s): M35.3 - Polymyalgia rheumatica Category: Medical Plan: See above Orders: Orders Erythrocyte Sedimentation Rate Today M31.6 - Other giant cell arteritis, M62.81 - Muscle weakness (generalized), Z79.52 - predatory animal exterminator (current) use of systemic steroids, Z79.899 - Other custodial (current) drug therapy MR humerus RT wo/w con Today M62.81 - Muscle weakness (generalized) C Reactive Protein Today M31.6 - Other giant cell arteritis, M62.81 - Muscle weakness (generalized), Z79.52 - predatory animal exterminator (current) use of systemic steroids, Z79.899 - Other custodial (current) drug therapy Creatine Kinase Total Today M31.6 - Other giant cell arteritis, M62.81 - Muscle weakness (generalized), Z79.52 - predatory animal exterminator (current) use of systemic steroids Aldolase Today M31.6 - Other giant cell arteritis, M62.81 - Muscle weakness (generalized), Z79.52 - correction (current) use of systemic steroids Liver Panel Today M31.6 - Other giant cell arteritis, M62.81 - Muscle weakness (generalized), Z79.52 - correction (current) use of systemic steroids Complete Blood Count Auto Diff Today M31.6 - Other giant cell arteritis, M62.81 - Muscle weakness (generalized), Z79.52 - predatory animal exterminator (current) use of systemic steroids Creatinine Today M31.6 - Other giant cell arteritis, M62.81 - Muscle weakness (generalized), Z79.52 - correction (current) use of systemic steroids MR femur RT wo/w con Today M62.81 - Muscle weakness (generalized) MR shoulder RT wo con Today M62.81 - Muscle weakness (generalized) MR hip RT wo con Today M62.81 - Muscle weakness (generalized) Referrals Vascular Surgery Referral R29.898 - Other symptoms and signs involving the musculoskeletal system Medications: New prednisone After being on prednisone 20 mg daily for 2 weeks decrease prednisone by 2.5 mg every 2 weeks until you are on 10 mg daily. Then stay on 10 mg daily for a m onth. 2.5 mg PO DIRECTED 364 tabs 0RF Coding Level of Care Code Est Pt Level 5 (78680) Add On Problem Visit Only Diagnoses Chronic pain of both shoulders M25.511; M25.512; G89.29 Chronicity: chronic Giant cell arteritis M31.6 Weakness of both upper extremities R29.898 Weakness of both lower extremities R29.898 Polymyalgia rheumatica M35.3 Time Spent (min) 40
--- OUTSIDE RECORDS SUMMARY | 2025-06-12 08:30 | XMS_ITS | Clinical Summary ---
Author Organization [facility] Address [address] [place] [address] Phone Care Team Providers Care Government Services Professional Name Role Phone Timur Mclain MD Primary Care Provider [phone]- [phone] Allergies No known active allergies Medications omeprazole (PRILOSEC) 20 MG capsule 11 11/24/2018 Active predniSONE (DELTASONE) 20 MG tablet Take 40 mg by mouth daily. 2 10/23/2018 Active ACTEMRA 162 mg/0.9 mL subcutaneous injection syringe 11/30/2018 A ctive Ca cit-D3-mag#11-zin v-jyro-clb-bor (CALTRATE 600+D) 600 mg calcium- 800 unit-50 [...] Insurance PPO EPO PPO EPO [place] [place] [address] PPO EPO * Guarantor: Nicanor Mcnair Account Type Relation to Patient Date of Phone Billing Address Personal/Family Self [address] [place] [id number] [place] [address] PPO EPO * Guarantor: Nicanor Mcnair Account Type Relation to Patient Date of Phone Billing Address Personal/Family Self [address] [place] [id number] [place] [address] PPO EPO * Guarantor: Nicanor Mcnair Account Type Relation to Patient Date of Phone Billing Address Personal/Family Self [address] [place] [id number] [place] [address] PPO EPO PPO EPO PPO EPO Care Teams Government Services Professional Relationship Specialty Start Date End Date Timur Mclain MD [address] [place] [id number] PCP - General Internal Medicine 11/13/18 Additional Source Comments The information contained in this document represents components of the legal health record. It is not the complete legal health record.[facility]
--- OUTSIDE RECORDS SUMMARY | 2025-06-12 08:30 | XMS_ITS | Patient Health Record ---
Author Organization 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 and now working for [employer] Notes: Nonsmoker; 1 drink per night , except for Tuesday--a few beers Nonsmoker; 1 drink per night , except for Tuesday- a few beers Problems Problem Type SNOMED Code ICD Code Onset Dates Problem Status W/U Status Risk Notes Problem Colon cancer screening (541691430) Colon cancer screening (Z12.11) Active confirmed Problem Gastro-esophageal reflux disease without esophagitis (414424600) Gastro-esophag eal reflux disease without esophagitis (K21.9) Active confirmed Problem Screening for malignant neoplasm of colon (593854347) Encounter for screening for malignant neoplasm of colon (Z12.11) Active confirmed Problem Screening for malignant neoplasm of rectum (721328752) Encounter for screening for malignant neoplasm of rectum (Z12.12) Active confirmed Problem Dysphagia (90482253) Dysphagia (R13.10) Active confirmed Problem Abnormal feces (205815384) Heme + stool (R19.5) Active confirmed Problem Gastroesophageal reflux disease (416620838) GERD (gastroesophag eal reflux disease) (K21.9) Active [...] N/A Encounters Encounter Location Date Provider Diagnosis [facility] [address] [place] [address] 02/12/2025 Scotty Jean Dysphagia R13.10 ; GERD [...] Provider Name:Scotty Jean , 07/01/2025 10:30:00 AM, [address] [place] [address] , [place], [place], [phone], Insurance Providers Payer Name Payer Address Payer Phone Subscriber Number Group Number Insured Name Patient Relationship to Insured Coverage Start Date Coverage End Date [facility] [address] [place] [address] [id number] NICANOR MCNAIR Self - patient is the insured Medical (General) History Medical History History ICD Code Denies RI,DM,CVA,Lung disease,renal dise ase GERD--upper GI series in October of 2014 describes a small hiatal hernia, reflux, thickening of distal esophageal folds, and mild narrowing of the distal esophagus PMR and Giant Cell Arteritis --sees [facility] Rheumatology Dr. Brown--going to start prednisone and Actemra injections as of the 02/2025 OV Negative colonoscopy in 07/2015 EGD 07/2015 with erosive esophagitis--no Saeed's, small hiatal hernia Surgical History Surgery Date(Month/Year) Right knee surgeriesX5 Left 4th finger
--- OUTSIDE RECORDS SUMMARY | 2025-06-12 08:30 | XMS_ITS | Clinical Summary ---
Author Organization [facility] Address [address] [place] [address] Phone Care Team Providers Care Cash Management Specialist Name Role Phone Unavailable Primary Care Provider Unavailabl e Encounters Date Type Department Care Team Description 03/15/2025 1:22 PM EDT - 03/15/2025 11:59 PM EDT Hospital Encounter [facility] PET Scan [address] [place] [address] Other giant cell arteritis (CMS/HCC [...] 3:30 PM EDT Other giant cell arteritis ([facility] V24, [facility] V28) Polymyalgia rheumatica ([facility] V24) from Last 3 [...] Signed Date: 03/27/2025 14:20 ET Workstation ID: [id number] Transcribed By: Self Edit Transcribed Date: 03/27/2025 [...] Signed Date: 03/27/2025 14:20 ET Workstation ID: [id number] Transcribed By: Self Edit Transcribed Date: 03/27/2025 14:05 ET us Kuldip Jacki Brown MD IMG NM PROCEDURES Final R esult from Last [address] [place] [address] [place] [address]
--- OUTSIDE RECORDS SUMMARY | 2025-06-12 08:30 | XMS_ITS | Encounter Summary ---
Author Organization [facility] Address [address] [facility] [address] [place] [address] Phone Care Team Providers Care Wallpaperer Name Role Phone Timur Mclain MD Primary Care Provider +1- [phone] Encounter Details Date Type Department Care Team (Late st Contact Info) Description 02/01/2019 Procedure Pass [facility] [address] [address] Social History Tobacco Use Types Packs/Day Years [...] on filedocumented in this encounter Care Teams Wallpaperer Relationship Specialty Start Date End Date Timur Mclain MD [address] [place] [id number] PCP - General Internal Medicine 11/13/18 documented as of this encounter Additional Source Comments The information contained in this document represents components of the legal health record. It is not the complete legal health record.[facility]
== END 2025-06-12 09:08 | disposition home or self-care (01) ==
LOC: HO.RHES 08:25
PROVIDERS: Visit Provider Internal Medicine Rheumatology
DX: M25.511 Pain in right shoulder (principal); M25.512 Pain in left shoulder; G89.29 Other chronic pain; M31.6 Other giant cell arteritis; R29.898 Other symptoms and signs involving the musculoskeletal system; M35.3 Polymyalgia rheumatica
CPT/HCPCS: 99215

== ENCOUNTER 2025-06-12 08:24 | Outpatient (REF) | payer BC, SELFPAY ==
[2025-06-12 13:58] LABS: MANUAL DIFF FLAG NO
[2025-06-12 14:06] LABS: Hematocrit 43.4 % (42.0-52.0); Hemoglobin 14.2 g/dl (14.0-18.0); Imm Gran Abs Auto 0.03 X10*3/uL (0.00-0.03); Imm Gran Pct Auto 0.5 % (0.0-0.4); Lymphocytes Absolute Auto 1.4 X10*3/uL (1.2-4.9); Mean Corpuscular HGB Conc 32.7 g/dl (31.0-36.0); Mean Corpuscular Hemoglobin 32.4 pg (27.0-33.0); Mean Corpuscular Volume 99.1 fL (80.0-98.0); NRBC Abs Auto 0.000 X10*3/uL (0.0-0.012); NRBC Pct Auto 0.0 /100WBC (0.0-0.2); Platelet Count 231 X10*3/uL (160-400); Red Blood Count 4.38 X10*6/uL (4.60-5.80); White Blood Count 6.4 X10*3/uL (4.8-10.8)
[2025-06-12 15:07] LABS: Alanine Aminotransferase 37 U/L (0-40); Albumin Level 4.4 g/dL (3.5-5.0); Alkaline Phosphatase 60 U/L (39-117); Aspartate Amino Transferase 21 U/L (5-37); Estimated Glomerular Filt Rate > 60; Total Protein 6.9 g/dL (6.5-8.0)
== END 2025-06-12 08:25 | disposition home or self-care (01) ==
LOC: HO.HKASLDS 08:24
PROVIDERS: PCP Physician Assistant Medical; Visit Provider Internal Medicine Rheumatology
DX: M43.16 Spondylolisthesis, lumbar region (principal); M54.16 Radiculopathy, lumbar region; M75.31 Calcific tendinitis of right shoulder; M75.32 Calcific tendinitis of left shoulder; G89.29 Other chronic pain; M31.6 Other giant cell arteritis; M35.3 Polymyalgia rheumatica; R29.898 Other symptoms and signs involving the musculoskeletal system; M54.2 Cervicalgia; M62.81 Muscle weakness (generalized); Z79.52 Long term (current) use of systemic steroids; Z79.899 Other long term (current) drug therapy
CPT/HCPCS: 36415; 80076; 82085; 82550; 82565; 85025; 85652; 86140

== ENCOUNTER 2025-06-12 10:05 | Outpatient (AMB) | payer BC, SELFPAY ==
--- NOTE | 2025-06-12 10:17 | A.PHYSOV ---
Vital Signs 06/12/25 10:17 Height 5 ft 8 in Intake Visit Reasons: [facility] [facility] [place] [facility] [place]- polymyalgia Intake Note: Patient is a 64 year old male here for initial visit. Patient has been referred for polymyalgia. Patient having bilateral arm and leg pain. Patient also has numbness in buttock area. Corporate Director Required: No Allergies diesel exhaust Allergy (Mild, Uncoded 05/14/25 14:28) Migraine HPI Comments Details: History of Present Illness The patient is a 64-year-old male with a history of polymyalgia rheumatica presenting for evaluation of recurrent symptoms. 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 His treatment included prednisone for four years, starting at 20 mg, increasing to 80 mg for suspected giant cell arteritis (due to scalp tenderness), and then tapering down, which resulted in four good years. This summer, his symptoms returned, characterized by a feeling of heaviness in his upper arms and thighs, along with scalp tenderness making it difficult to brush his hair. The symptoms are worse in the morning and with inactivity, but subside with activity. He denies back pain but notes occasional hand tingling that is relieved by wearing wrist braces. Patient reports most of his pain in the shoulders with sleeping. 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 Recent review of imaging revealed calcific tendinitis of the rotator cuff and severe spondylolisthesis. He is currently taking 20 mg of prednisone and recently tried Tylenol at 5,000 mg daily for two weeks without relief. I reviewed the referring provider's no prior to consultation. Pain Description - Character: The patient describes the sensation primarily as heaviness and aching rather than pain. - Location: Symptoms are located in the upper arms and thighs. - Onset and Timing: Symptoms are worse every morning upon waking and after periods of inactivity. - Relieving Factors: Symptoms subside with physical activity. - Associated Symptoms: He reports scalp tenderness, making it difficult to brush his hair, and occasional hand tingling relieved by wrist braces. [facility] Medical History On prednisone therapy Healthcare maintenance Prediabetes Skin lesion History of giant cell arteritis Polymyalgia rheumatica Temporal arteritis GERD (gastroesophageal reflux disease) HLD (hyperlipidemia) Depression Migraine Vitamin D deficiency Osteopenia Adrenocortical insufficiency Surgical History History of temporal artery biopsy H/O knee surgery Hx of bilateral cataract extraction History of hand surgery Family History Father T2DM (type 2 diabetes mellitus) CVA (cerebral vascular accident) Brother Renal cancer Mother Giant cell arteritis Sister T2DM (type 2 diabetes mellitus) Social History Housing: House Are you a primary special needs caregiver to a significant other at home: No Do you presently have visiting nurse or other home services: No Alcohol intake: current Alcohol intake frequency: 3 or more drinks per day Alcohol type: wine Patient Tobacco Use Status: Former Tobacco user service: No Current occupational status: employed Cognitive needs: No Hearing needs: No Vision needs: Yes (reading glasses) Review of Systems Narrative Review of Systems - Musculoskeletal: Reports heaviness and aching in bilateral upper arms and thighs. - Neurological: Reports occasional tingling in the hands. - Head: Reports scalp tenderness. - Constitutional: Denies pain, reports weakness. - All other systems reviewed and are negative. Physical Exam Exam Exam: Physical Exam - Gait: Patient was observed to have a slight limp upon initiating walking, which he states is more pronounced in the morning. - Musculoskeletal: - Back: No tenderness to palpation of the lumbar spine. Lumbar range of motion with forward flexion and extension is non-painful. - Neck: No tenderness to palpation. Full, non-painful range of motion with flexion, extension, and rotation. - Shoulders: No tenderness to palpation bilaterally. - Neurological: - Sensation: Sensation is grossly intact and equal in the bilateral upper extremities. - Lower Extremity: Straight leg raise testing is negative bilaterally. Resisted hip flexion is non-painful bilaterally. - Upper Extremity: Spurling's test is negative bilaterally for radicular symptoms. Assessment & Plan Assessment & Plan (1) Calcific tendinitis of both shoulder regions: Code(s): M75.31 - Calcific tendinitis of right shoulder; M75.32 - Calcific tendinitis of left shoulder Category: Medical (2) Lumbar radiculopathy: Code(s): M54.16 - Radiculopathy, lumbar region Category: Medical (3) Cervicalgia: Code(s): M54.2 - Cervicalgia Category: Medical Plan Pain Management - Affect: The patient reports feeling miserable when symptoms are present. - Analgesia: The patient is currently taking 20 mg of prednisone. - Analgesia: He previously took Tylenol 5,000 mg daily for approximately two weeks but stopped due to a lack of efficacy. - Activities of Daily Living: Symptoms cause functional impairment, including difficulty brushing his hair and a feeling that his arms are too heavy to lift. - Aberrant Drug Related Behaviors: No aberrant drug-related behaviors were discussed. Plan Patient was informed and verbally consented to the use of an ambient scribe for clinic note documentation during this visit. 1. Myalgia And Weakness The patient's primary complaint is heaviness and weakness in the upper arms and thighs, which is being investigated for a structural etiology rather than a recurrence of polymyalgia rheumatica. To evaluate for a structural cause of his lower extremity symptoms, an MRI of his back will be ordered to assess the severe spondylosis seen on x-ray. To investigate the upper extremity symptoms, bilateral shoulder injections will be considered as a diagnostic and therapeutic option to address the known calcific tendinitis. The results of the recent EMG will also be reviewed once available. 2. Severe Spondylolisthesis The patient has severe spondylolisthesis noted on a previous back X-ray, which is a potential cause of his leg symptoms despite his denial of back pain. An MRI of the lumbar spine will be ordered to further evaluate this finding and assess for any nerve impingement. 3. Calcific Tendinitis Of Shoulder The patient has calcific tendinitis of the rotator cuff, which may be contributing to his upper arm symptoms. Bilateral shoulder injections are being considered to determine if they provide relief and will be re-evaluated as a treatment option after the back MRI results are available. Discussion Notes I discussed with the patient and his that my approach would be to look for structural problems that could be causing his symptoms, rather than assuming it is a recurrence of his polymyalgia rheumatica. I explained that findings on his prior imaging, such as calcific tendinitis in the shoulder and severe spondylolisthesis in the back, could be contributing to his arm and leg symptoms, respectively. We discussed the plan to order an MRI of his back to further evaluate the spondylolisthesis. I also mentioned that we could consider shoulder injections to see if that helps his upper extremity symptoms and would re-evaluate this after the MRI. I informed him that we would review the results of the EMG he had this morning once they become available. We will schedule a follow-up appointment after the MRI is complete. Patient Instructions - An MRI of your lower back will be ordered to look for a cause of your symptoms. - We will contact you to schedule a follow-up appointment to discuss the results of the MRI. - Based on the MRI results, we may discuss trying injections in your shoulders to help with your arm symptoms. - Continue taking your medications as prescribed by your other doctors. Orders: Orders MR lumbar spine wo con Today M51.16 - Intervertebral disc disorders with radiculopathy, lumbar region Coding Level of Care Code New Pt Level 4 (91302) Diagnoses Calcific tendinitis of both shoulder regions M75.31; M75.32 Lumbar radiculopathy M54.16 Cervicalgia M54.2
== END 2025-06-12 11:05 | disposition home or self-care (01) ==
LOC: HO.HPHYS 10:05
PROVIDERS: PCP Physician Assistant Medical; Visit Provider Physician Assistant
DX: M75.31 Calcific tendinitis of right shoulder (principal); M75.32 Calcific tendinitis of left shoulder; M54.16 Radiculopathy, lumbar region; M54.2 Cervicalgia
CPT/HCPCS: 99204